=== PATIENT | female | born 1985 | race Two or more races ===

== ENCOUNTER 2022-08-06 13:42 | Emergency (ER) | payer OTHER, SELFPAY ==
--- NOTE | ~2022-08-06 | XR_ITS ---
EXAMINATION: XR CHEST CLINICAL INFORMATION: Chest pain left side COMPARISON: None available. TECHNIQUE: 2 views of the chest were obtained. FINDINGS: No significant abnormality is noted involving the heart, lungs, mediastinum, bony thorax or soft tissues. XR/XR chest 2V IMPRESSION: Unremarkable chest examination.
[2022-08-06 13:48] VITALS: BP 128/62; PULSE 90; RESP 18; TEMP 37.1; O2SAT 100; BMI 40.4
--- NOTE | 2022-08-06 13:48 | ED_ITS ---
HPI - General Adult General Chief complaint: Back Pain/Injury Stated complaint: Shoulder pain? Back pain Time Seen by Provider: 08/06/22 15:08 Related Data Previous Rx's Medication Instructions Recorded acetaminophen 500 mg tablet 1,000 mg PO QID PRN pain #30 tabs 08/06/22 ibuprofen 600 mg tablet 600 mg PO Q6H PRN pain #20 tabs 08/06/22 Allergies Allergy/AdvReac Type Severity Reaction Status Date / Time No Known Allergies Allergy Verified 08/06/22 13:49 Physical Exam ED Vital Signs: BMI result Body Mass Index 40.4 Course Course Course Narrative: RME: 36-year-old female presenting to the ED complaining of epigastric/substernal CP and left scapular pain radiating to left shoulder x3 days. Pain worse with putting arms overhead. denies SOB. Denies injury/trauma, fall, or heavy lifting Pain not reporducible on exam EKG, labs, CXR, shoulder XR ordered Full HPI, ROS and PE to be performed by primary ED provider. Medical Decision Making Lab Data 08/06/22 15:48 08/06/22 15:48 Labs: Lab Results 08/06/22 08/06/22 08/06/22 Range/Units 15:48 15:48 15:48 WBC 5.6 (4.8-10.8) X10*3/uL RBC 5.65 H (4.20-5.50) X10*6/uL Hgb 14.2 (12.0-16.0) g/dl Hct 44.7 (37.0-47.0) % MCV 79.1 L (80.0-98.0) fL MCH 25.1 L (27.0-33.0) pg MCHC 31.8 (31.0-35.0) g/dl RDW 14.6 (11.0-16.0) % Plt Count 246 (160-400) X10*3/uL MPV 11.5 (9.4-12.3) fL Immature Gran % (Auto) 0.2 (0.0-0.4) % Neut % (Auto) 52.0 (45-73) % Lymph % (Auto) 38.3 (20-40) % Jack % (Auto) 6.1 (2-11) % Eos % (Auto) 2.9 (0-4) % Baso % (Auto) 0.5 (0-2) % Lymph # (Auto) 2.1 (1.2-4.9) X10*3/uL Jack # (Auto) 0.3 (0.1-1.2) X10*3/uL Eos # (Auto) 0.2 (0.0-0.4) X10*3/uL Baso # (Auto) 0.0 (0.0-0.2) X10*3/uL Abs Immat Gran (auto) 0.01 (0.00-0.03) X10*3/uL Absolute Neuts (auto) 2.9 (2.0-8.3) x10*3/uL Absolute Nucleated RBC 0.000 (0.0-0.012) X10*3/uL Nucleated RBC % (auto) 0.0 (0.0-0.2) /100WBC Sodium 139 (135-145) mmol/L Potassium 4.0 (3.3-5.1) mmol/L Chloride 108 (96-108) mmol/L Carbon Dioxide 23 (22-29) mmol/L Anion Gap 12 (12-20) BUN 12 (9-16) mg/dL Creatinine 0.74 (0.5-1.4) mg/dL Estim Creat Clear Calc 116.4 Estimated GFR > 60 Random Glucose 100 (60-115) mg/dL Calcium 8.6 (8.4-10.2) mg/dL Total Bilirubin 0.4 (0.0-1.0) mg/dL Direct Bilirubin 0.1 (0.0-0.5) mg/dL AST 23 (5-31) U/L ALT 46 H (0-31) U/L Alkaline Phosphatase 113 (39-117) U/L Troponin I High Sens < 2.7 (<3.5-17.0) ng/L Total Protein 6.9 (6.5-8.0) g/dL Albumin 4.1 (3.5-5.0) g/dL Lipase 46 (8-78) U/L Urine Color Urine Appearance Urine pH (5.0-9.0) Ur Specific [place] (1.005-1.025) Urine Protein (Neg-Trace) mg/dL Urine Glucose (UA) (Negative) mg/dL Urine Ketones (Negative) mg/dL Urine Blood (Negative) Urine Nitrite (Negative) Ur Leukocyte Esterase (Negative) Urine RBC (0-2) /HPF Urine WBC (0-5) /HPF Ur Squamous Epith Cells (0-2) /HPF Urine Bacteria (None Seen) Hyaline Casts (0-2) /LPF Urine Test (NEGATIVE) 08/06/22 08/06/22 Range/Units 17:02 17:03 WBC (4.8-10.8) X10*3/uL RBC (4.20-5.50) X10*6/uL Hgb (12.0-16.0) g/dl Hct (37.0-47.0) % MCV (80.0-98.0) fL MCH (27.0-33.0) pg MCHC (31.0-35.0) g/dl RDW (11.0-16.0) % Plt Count (160-400) X10*3/uL MPV (9.4-12.3) fL Immature Gran % (Auto) (0.0-0.4) % Neut % (Auto) (45-73) % Lymph % (Auto) (20-40) % Jack % (Auto) (2-11) % Eos % (Auto) (0-4) % Baso % (Auto) (0-2) % Lymph # (Auto) (1.2-4.9) X10*3/uL Jack # (Auto) (0.1-1.2) X10*3/uL Eos # (Auto) (0.0-0.4) X10*3/uL Baso # (Auto) (0.0-0.2) X10*3/uL Abs Immat Gran (auto) (0.00-0.03) X10*3/uL Absolute Neuts (auto) (2.0-8.3) x10*3/uL Absolute Nucleated RBC (0.0-0.012) X10*3/uL Nucleated RBC % (auto) (0.0-0.2) /100WBC Sodium (135-145) mmol/L Potassium (3.3-5.1) mmol/L Chloride (96-108) mmol/L Carbon Dioxide (22-29) mmol/L Anion Gap (12-20) BUN (9-16) mg/dL Creatinine (0.5-1.4) mg/dL Estim Creat Clear Calc Estimated GFR Random Glucose (60-115) mg/dL Calcium (8.4-10.2) mg/dL Total Bilirubin (0.0-1.0) mg/dL Direct Bilirubin (0.0-0.5) mg/dL AST (5-31) U/L ALT (0-31) U/L Alkaline Phosphatase (39-117) U/L Troponin I High Sens (<3.5-17.0) ng/L Total Protein (6.5-8.0) g/dL Albumin (3.5-5.0) g/dL Lipase (8-78) U/L Urine Color Yellow Urine Appearance Clear Urine pH 7.0 (5.0-9.0) Ur Specific [place] 1.015 (1.005-1.025) Urine Protein Negative (Neg-Trace) mg/dL Urine Glucose (UA) Negative (Negative) mg/dL Urine Ketones Negative (Negative) mg/dL Urine Blood Small (1+) H (Negative) Urine Nitrite Negative (Negative) Ur Leukocyte Esterase Negative (Negative) Urine RBC 0-2 (0-2) /HPF Urine WBC 0-5 (0-5) /HPF Ur Squamous Epith Cells 3-5 (0-2) /HPF Urine Bacteria Trace (None Seen) Hyaline Casts 0-2 (0-2) /LPF Urine Test NEGATIVE (NEGATIVE) Discharge Plan Discharge Clinical Impression: Amenorrhea, Back pain Patient Disposition: Home, Self-Care Additional Instructions: for the problem of no menstruation for several months you should follow-up with manager medical device for further complete evaluation test was negative For the back pain which has been going on for some time follow with primary doctor for further evaluation You can try [facility] phone number We will provide you some names for primary doctor and manager medical device You can return to the ER any time for any concerns or worse condition Prescriptions: New acetaminophen 500 mg tablet 1,000 mg PO QID PRN (Reason: pain) Qty: 30 0RF ibuprofen 600 mg tablet 600 mg PO Q6H PRN (Reason: pain) Qty: 20 0RF Referrals: Miguelito Crandall MD [Physician] - ( amenorrhea) Interventions: ED Discharge Assessment Last Done: 08/06/22 17:41 Discharge Date/Time: 08/06/22 17:46
--- NOTE | 2022-08-06 13:49 | ECG_ITS ---
Test Reason : CHEST PAIN Blood Pressure : / mmHG Vent. Rate : 082 BPM Atrial Rate : 082 BPM P-R Int : 152 ms QRS Dur : 084 ms QT Int : 372 ms P-R-T Axes : 075 019 032 degrees QTc Int : 434 ms Normal sinus rhythm Normal ECG No previous ECGs available Referred By: Dang Jara Electronically Signed By:NICKI MONTIEL
[2022-08-06 15:56] LABS: Basophils Percent Auto 0.5 % (0-2); Eosinophils Absolute Auto 0.2 X10*3/uL (0.0-0.4); Eosinophils Percent Auto 2.9 % (0-4); Hematocrit 44.7 % (37.0-47.0); Hemoglobin 14.2 g/dl (12.0-16.0); Imm Gran Abs Auto 0.01 X10*3/uL (0.00-0.03); Imm Gran Pct Auto 0.2 % (0.0-0.4); Lymphocytes Absolute Auto 2.1 X10*3/uL (1.2-4.9); Lymphocytes Percent Auto 38.3 % (20-40); Mean Corpuscular HGB Conc 31.8 g/dl (31.0-35.0); Mean Corpuscular Hemoglobin 25.1 pg (27.0-33.0); Mean Corpuscular Volume 79.1 fL (80.0-98.0); Mean Platelet Volume 11.5 fL (9.4-12.3); Monocytes Absolute Auto 0.3 X10*3/uL (0.1-1.2); Monocytes Percent Auto 6.1 % (2-11); Neutrophils Absolute Auto 2.9 x10*3/uL (2.0-8.3); Platelet Count 246 X10*3/uL (160-400); Red Blood Count 5.65 X10*6/uL (4.20-5.50); Red Cell Distribution Width 14.6 % (11.0-16.0); White Blood Count 5.6 X10*3/uL (4.8-10.8)
[2022-08-06 16:02] LABS: MANUAL DIFF FLAG NO
[2022-08-06 16:16] LABS: Troponin-I High Sensitivity < 2.7 ng/L (<3.5-17.0)
[2022-08-06 16:18] LABS: Alanine Aminotransferase 46 U/L (0-31); Albumin Level 4.1 g/dL (3.5-5.0); Alkaline Phosphatase 113 U/L (39-117); Anion Gap 12 (12-20); Aspartate Amino Transferase 23 U/L (5-31); Bilirubin Direct 0.1 mg/dL (0.0-0.5); Bilirubin Total 0.4 mg/dL (0.0-1.0); Blood Urea Nitrogen 12 mg/dL (9-16); Calcium 8.6 mg/dL (8.4-10.2); Carbon Dioxide 23 mmol/L (22-29); Chloride 108 mmol/L (96-108); Creatinine Clr Calc Pharmacy 116.4; Estimated Glomerular Filt Rate > 60; Glucose Random 100 mg/dL (60-115); Sodium 139 mmol/L (135-145); Total Protein 6.9 g/dL (6.5-8.0)
[2022-08-06 16:19] LABS: Lipase 46 U/L (8-78)
[2022-08-06 17:09] LABS: UPreg QC Valid YES
[2022-08-06 17:12] LABS: Urine Pregnancy NEGATIVE (NEGATIVE)
[2022-08-06 17:12] LABS: Appearance Urine Clear; Color Urine Yellow; Glucose Urine UA Negative (Negative); Leukocyte Esterase Urine Negative (Negative); Nitrite Urine Negative (Negative); Specific Gravity - Urine 1.015 (1.005-1.025); UMIC TRIGGER UACC YES; Urine Blood Small (1+) (Negative); Urine Ketones Negative (Negative); Urine Protein Negative (Neg-Trace)
[2022-08-06 17:27] LABS: Bacteria Urine Trace (None Seen); Hyaline Casts Urine 0-2 /LPF (0-2); RBC Urine 0-2 /HPF (0-2); WBC Urine 0-5 /HPF (0-5)
== END 2022-08-06 17:46 | disposition home or self-care (01) ==
PROVIDERS: Physician Assistant; Physician Assistant Medical; Emergency Provider Emergency Medicine Emergency Medical Services
DX: N91.2 Amenorrhea, unspecified (principal); M54.9 Dorsalgia, unspecified; R07.2 Precordial pain; R10.13 Epigastric pain
CPT/HCPCS: 36415; 71046; 80048; 80076; 81001; 81025; 83690; 84484; 85025; 93005; 99283; 99284

== ENCOUNTER 2022-10-16 13:28 | Outpatient (AMB) | payer OTHER, SELFPAY ==
--- NOTE | 2022-10-16 13:30 | MHC.OFFVIS ---
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 Scribed for RADHA Salcedo by Aury Landrum medical sales consultant, on 10/16/2022 at 2:10 pm EST. Home Visitor Required: Yes Home Visitor Name: Arianna [id number] Information Interpreted: non-clinical & clinical Property Insurance Claims Examiner: Property Insurance Claims Examiner Present (Chanelle) Allergies No Known Allergies Allergy (Verified 10/16/22 13:44) Is last menstrual period known: Yes Last menstrual period: 10/14/22 HPI HPI Comments History of Present Illness Details She is here for an annual but defers due to her having her menses today. Reports she has been on BC for many years and just stopped BC in February. Received her BC in [facility] and was injections in her abdomen every 3 months, this is the first menses since stopping her shots. Currently sexually active, has not used condoms in a while but prefers to use condoms only for BC. She denies any contraindications to control such as: migraines with aura, history of DVT or pulmonary emboli, high blood pressure, liver disease, thrombolic disorders, Lupus, +MAGDA, or smoking. Reviewed use, side effects and warnings including ACHES. H/O of asthma and depression and would like to be put back on Rx for depression. PFSH Medical History Headache Irregular menses Surgical History Hx of section Social History Alcohol intake: never Patient Tobacco Use Status: Never used Tobacco Sexual orientation: Straight/Heterosexual Gender identity: Female Female Reproductive History Menstrual Date of last menstrual period: 10/14/22 Total pregnancies: 2 Full term: 2 Number of Living Children: 2 Physical Exam Vital Signs: Last Vital Signs BP 100/64 10/16/22 13:31 BMI result Body Mass Index 41.0 Const General: cooperative, healthy appearing, comfortable, no acute distress, well developed, alert and awake Results AMB Test Urine AMB Test Urine Negative Last Edit by CHARLEY Garcia on 10/16/22 14:24 Results Reviewed Results Reviewed: Laboratory Last Values [facility] Negative 10/16/22 14:23 Assessment & Plan Assessment & Plan (1) Missed menses: Code(s): N92.6 - Irregular menstruation, unspecified Plan: Discussed: Monitor menses. Contact office with information of past BC information-product name Advised to consult with PCP regarding Rx for depression. Reschedule AG. Use condoms always. All of her questions and concerns were addressed to the best of my ability and shared decision making. She is agreeable to plan of care. (2) Irregular menses: Code(s): N92.6 - Irregular menstruation, unspecified Orders: Orders AMB HCG Urine Test Today N92.6 - Irregular menstruation, unspecified Coding Level of Care Code New Pt Level 3 (55857) Diagnoses Missed menses N92.6 Irregular menses N92.6
[2022-10-16 13:31] VITALS: BP 100/64; BMI 41.0
== END 2022-10-16 14:19 | disposition home or self-care (01) ==
PROVIDERS: PCP Internal Medicine; Visit Provider Advanced Practice Midwife
DX: N92.6 Irregular menstruation, unspecified (principal)
CPT/HCPCS: 99203

== ENCOUNTER → 2022-10-16 13:28 | Outpatient (BNVA) | payer OTHER, SELFPAY | PROVIDERS: PCP Internal Medicine; Visit Provider Advanced Practice Midwife | DX: N92.6 Irregular menstruation, unspecified (principal) | CPT/HCPCS: 81025; 99202 ==

== ENCOUNTER 2022-11-14 10:10 | Outpatient (AMB) | payer OTHER, SELFPAY ==
[2022-11-14 10:12] VITALS: BP 110/68; BMI 41.1
--- NOTE | 2022-11-14 10:12 | A.OFFVIS_ITS ---
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 Scribed for RADHA Salcedo by Aury Landrum medical receptionist assistant, on 11/14/2022 at 10:36 am EST. Mineral Economist Required: Yes Mineral Economist Language: Damien Joe Mineral Economist Name: Eric [id number] Information Interpreted: non-clinical & clinical Rn Support Services: Rn Support Services Present (Mara Gutierres CHARLEY) Accompanied by: Self / Same As Patient Allergies No Known Allergies Allergy (Verified 11/14/22 10:21) Is last menstrual period known: Yes Last menstrual period: 10/28/22 HPI HPI Comments History of Present Illness Details She is a premenopausal woman presenting for annual exam. She admits to eating healthy and tries to stay active with exercise. Report low pelvic pain with pain during urination that started 2 weeks ago. Reports menses October 04 and in October it lasted 1 day. Prior menses skipped a few months. Poor historian-Mineral Economist reported her history varied from the nurse intake to my intake. Currently sexually active. She received her last Depo injection in [facility] on October 25 2021, per card from clinic she has on hand today. BC offered; she declines because BC gives her headaches. She prefers to use condoms alone. Denies vaginal itching and irritation. STD screening offered; she accepts. Denies family hx of breast, colon and ovarian cancer. Last pap smear; unknown. [facility] Medical History Headache Irregular menses Obesity, Class III, BMI 40-49.9 (morbid obesity) Painful urination Pelvic pain Surgical History Hx of section Social History Household Members: Spouse and Children Housing Other:: [facility] Alcohol intake: never Patient Tobacco Use Status: Never used Tobacco Current occupational status: unemployed Sexual orientation: Straight/Heterosexual Gender identity: Female Female Reproductive History Menstrual Date of last menstrual period: 08/14/23 control method: condoms Total pregnancies: 2 Full term: 2 Number of Living Children: 2 Physical Exam Vital Signs: Last Vital Signs BP 110/68 11/14/22 10:12 BMI result Body Mass Index 41.1 Const General: cooperative, healthy appearing, no acute distress, well developed and alert Orientation/consciousness: patient oriented x3 HEENT Head: Yes normal to inspection Eyes General: appearance normal, both eyes and all related structures Neck Neck: Yes normal visual inspection Thyroid: Thyroid normal Chest Chest palpation & inspection: normal inspection of the chest Breast/axilla inspection: normal inspection of the breasts (no puckering, d impling, peau de orange, retraction, discharge, masses) Breast/axilla palpation: normal palpation of the breasts Resp Effort & Inspection: normal respiratory effort GI Inspection: Yes normal to inspection and Yes obesity Palpation (GI): Soft to palpation (to palpation) Rectal Exam - Female: deferred Other: low transverse c/s scarring General: Yes bladder normal to inspection External Female Exam: normal external appearance and normal appearance of the urethra Speculum Exam - Vagina: normal appearance of the vagina, normal palpation and normal vaginal discharge Speculum Exam - Cervix: normal appearance of the cervix and normal palpation Bimanual exam- vagina & uterus: normal palpation and normal palpation Bimanual Exam- Adnexa, other: normal adnexae and no masses Skin General skin exam: no rashes or lesions noted Neuro General: patient oriented x3 Cognition (Neuro): normal cognition Extrem General: Yes normal to inspection Psych Attitude: cooperative Thought process: Normal thought process present Assessment & Plan Assessment & Plan (1) Encounter for well woman exam: Code(s): Z01.419 - Encounter for gynecological examination (general) (routine) without abnormal findings Plan: Current recommendations for pap smears per ASCCP guidelines. Breast awareness and periodic self breast exams. Maintaining a healthy lifestyle including a well balanced diet and routine exercise. Monitor periods, report any unscheduled bleeding, bleeding episodes less than 21 days apart or heavy prolonged menstrual bleeding. All of her questions and concerns were addressed to the best of my ability. RTO in one year for AG. (2) Potential exposure to STD: Code(s): Z20.2 - Contact with and (suspected) exposure to infections with a predominantly sexual mode of transmission Plan: BV testing and GC/CT panel done today. Await results and treat accordingly. (3) Painful urination: Code(s): R30.9 - Painful micturition, unspecified Plan: UA obtained today. (4) Pelvic pain: Code(s): R10.2 - Pelvic and perineal pain Plan: After her exam she reported pelvic pain and dysuria. Additionally added: Pelvic US ordered. Follow up in person for results. Orders: Orders Bacterial Vaginosis Panel Today R10.2 - Pelvic and perineal pain, Z01.419 - Encounter for gynecological examination (general) (routine) without abnormal findings CT NG by PCR Today R10.2 - Pelvic and perineal pain, Z01.419 - Encounter for gynecological examination (general) (routine) without abnormal findings US pelvic and transvaginal Today R10.2 - Pelvic and perineal pain Hepatitis B Core Antibody Today Z20.2 - Contact with and (suspected) exposure to infections with a predominantly sexual mode of transmission Hepatitis C Antibody Today Z20.2 - Contact with and (suspected) exposure to infections with a predominantly sexual mode of transmission HIV Ab/Ag Today Z20.2 - Contact with and (suspected) exposure to infections with a predominantly sexual mode of transmission Syphilis Screen Today Z20.2 - Contact with and (suspected) exposure to infections with a predominantly sexual mode of transmission Pap Smear Today R10.2 - Pelvic and perineal pain, Z01.419 - Encounter for gynecological examination (general) (routine) without abnormal findings Coding Level of Care Code Est Pt Prev Care 18-39y(21225) Diagnoses Encounter for well woman exam Z01.419 Potential exposure to STD Z20.2 Painful urination R30.9 Pelvic pain R10.2
== END 2022-11-14 11:04 | disposition home or self-care (01) ==
LOC: HO.HWS 10:10
PROVIDERS: PCP Internal Medicine; Visit Provider Advanced Practice Midwife
DX: Z01.419 Encounter for gynecological examination (general) (routine) without abnormal findings (principal); Z20.2 Contact with and (suspected) exposure to infections with a predominantly sexual mode of transmission; R30.9 Painful micturition, unspecified; R10.2 Pelvic and perineal pain
CPT/HCPCS: 99395

== ENCOUNTER 2022-11-14 10:10 | Outpatient (REF) | payer OTHER, SELFPAY ==
[2022-11-14 18:59] LABS: CT PCR NOT DETECTED (Not Detect.); NG PCR NOT DETECTED (Not Detect.)
[2022-11-15 12:07] LABS: BV Int Neg Control Negative (Negative); BV Int Pos Control Positive (Positive)
[2022-11-19 18:49] LABS: HPV mRNA E6/E7 rflx Not Detected (Not Detected)
== END 2022-11-14 10:11 | disposition home or self-care (01) ==
LOC: HO.LNP 10:10
PROVIDERS: PCP Internal Medicine; Visit Provider Advanced Practice Midwife
DX: Z01.419 Encounter for gynecological examination (general) (routine) without abnormal findings (principal); Z11.51 Encounter for screening for human papillomavirus (HPV); R10.2 Pelvic and perineal pain; R30.9 Painful micturition, unspecified; Z20.2 Contact with and (suspected) exposure to infections with a predominantly sexual mode of transmission
CPT/HCPCS: 0353U; 87480; 87510; 87624; 87660; 88142

== ENCOUNTER 2022-11-14 11:14 | Outpatient (REF) | payer OTHER, SELFPAY ==
[2022-11-15 08:03] LABS: HBc Num1 0.19 S/CO (0.00-0.79); HIV AB/AG Nonreactive (Nonreactive); HIV Num 1 0.05 S/CO (0.00-0.99); Hepatitis B Core Antibody Nonreactive (Nonreactive); ~HepC Num1 0.08 S/CO (0.00-0.79); ~Hepatitis C Antibody Nonreactive (Nonreactive)
[2022-11-15 08:31] LABS: Syphilis Screen Nonreactive (Nonreactive)
== END 2022-11-14 11:15 | disposition home or self-care (01) ==
LOC: HO.LAB 11:14
PROVIDERS: Visit Provider Advanced Practice Midwife
DX: Z11.4 Encounter for screening for human immunodeficiency virus [HIV] (principal); Z20.2 Contact with and (suspected) exposure to infections with a predominantly sexual mode of transmission
CPT/HCPCS: 0353U; 86704; 86780; 86803; 87389

== ENCOUNTER 2023-02-04 11:06 | Outpatient (REF) | payer OTHER, SELFPAY ==
--- NOTE | ~2023-02-04 | US_ITS ---
EXAMINATION: US PELVIS CLINICAL INFORMATION: Pelvic and perineal pain; the last menstrual period was on 01/16/2023. COMPARISON: None available. TECHNIQUE: Ultrasound of the pelvis is performed using both transabdominal and transvaginal transducers along with Doppler. Transvaginal imaging is performed due to inadequate visualization transabdominally. FINDINGS: Uterus: The uterus is anteverted and anteflexed. The uterus measures 8.8 x 4.1 x 4.0 cm. There is trace endocervical free fluid. The double wall endometrial thickness is 0.8 mm. The uterus is smooth in contour and has normal myometrial echogenicity. No visible fibroid. Adnexa: Both ovaries are visualized. There is normal color flow to the adnexa. There is no ovarian torsion. There is no pelvic ascites or fluid collection. Right ovary measures 4.2 x 1.8 x 3.5 cm, volume 12.3 mL. A 1.2 cm dominant physiologic simple follicle is seen, which requires no imaging follow-up. Left ovary measures 3.1 x 1.8 x 2.4 cm, volume 7.0 mL. A 2.0 cm dominant physiologic simple follicle is seen, which requires no imaging follow-up. US/US pelvic and transvaginal IMPRESSION: There is trace free fluid is seen within the endocervical canal. The examination is otherwise unremarkable.
== END 2023-02-04 11:07 | disposition home or self-care (01) ==
LOC: HO.US 11:06
PROVIDERS: PCP Internal Medicine; Visit Provider Advanced Practice Midwife
DX: R10.2 Pelvic and perineal pain (principal)
CPT/HCPCS: 76830; 76856

== ENCOUNTER 2023-02-11 08:49 | Outpatient (AMB) | payer OTHER, SELFPAY ==
--- NOTE | 2023-02-11 08:53 | MHC.OFFVIS ---
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 She has irregular menses, skips a month or so after stopping Depo-Provera in 2021. She does not want control due to prior headaches plans to use condoms. [facility] Medical History Obesity, Class III, BMI 40-49.9 (morbid obesity) Painful urination Pelvic pain Irregular menses Headache Surgical History Hx of section Household Members: Spouse and Children Housing Other:: detention Alcohol intake: never Patient Tobacco Use Status: Never used Tobacco Current occupational status: unemployed Sexual orientation: Straight/Heterosexual Gender identity: Female Female Reproductive History Menstrual control method: condoms Review of Systems ENT Reports no additional complaints Neuro Reports no additional complaints Psych Reports no additional complaints Endo Reports no additional complaints Physical Exam Vital Signs: Last Vital Signs BP 90/60 02/11/23 08:54 BMI result Body Mass Index 39.9 Const Other: [place] General appearance: cooperative, healthy appearing, in no acute distress, well developed and alert. Orientation/consciousness: patient orientated x 3. Results Reviewed Results Reviewed: [address] [address] Ultrasound Report Signed Patient: Nimisha Rose MR#: [id number] : 1985 Acct:[id number] Age/Sex: 37 / F ADM Date: 02/04/23 Loc: HO.US Attending Dr: Ngoc Pitts CNM Ordering Physician: Ngoc Pitts CNM Date of Service: 02/04/23 Procedure(s): US pelvic and transvaginal Accession Number(s): [id number] cc: Jonny Childers MD; Ngoc Pitts CNM~ EXAMINATION: US PELVIS CLINICAL INFORMATION: Pelvic and perineal pain; the last menstrual period was on 01/16/2023. COMPARISON: None available. TECHNIQUE: Ultrasound of the pelvis is performed using both transabdominal and transvaginal transducers along with Doppler. Transvaginal imaging is performed due to inadequate visualization transabdominally. FINDINGS: Uterus: The uterus is anteverted and anteflexed. The uterus measures 8.8 x 4.1 x 4.0 cm. There is trace endocervical free fluid. The double wall endometrial thickness is 0.8 mm. The uterus is smooth in contour and has normal myometrial echogenicity. No visible fibroid. Adnexa: Both ovaries are visualized. There is normal color flow to the adnexa. There is no ovarian torsion. There is no pelvic ascites or fluid collection. Right ovary measures 4.2 x 1.8 x 3.5 cm, volume 12.3 mL. A 1.2 cm dominant physiologic simple follicle is seen, which requires no imaging follow-up. Left ovary measures 3.1 x 1.8 x 2.4 cm, volume 7.0 mL. A 2.0 cm dominant physiologic simple follicle is seen, which requires no imaging follow-up. US/US pelvic and transvaginal IMPRESSION: There is trace free fluid is seen within the endocervical canal. The examination is otherwise unremarkable. Assessment & Plan Assessment & Plan (1) Encounter to discuss test results: Code(s): Z71.2 - Person consulting for explanation of examination or test findings Plan: Discussed: Ultrasound results reviewed normal. Patient is not interested in starting control advised to monitor her menstrual cycles and report any menses skipping past 3 months. To calls the office for a workup. Continue use of condoms. All of her questions and concerns were addressed to the best of my ability. She is agreeable to the plan of care. Next visit is for her annual in November of 2023. Coding Level of Care Code Est Pt Level 3 (21036) Diagnoses Encounter to discuss test results Z71.2
[2023-02-11 08:54] VITALS: BP 90/60; BMI 39.9
== END 2023-02-11 12:35 | disposition home or self-care (01) ==
LOC: HO.HWS 08:49
PROVIDERS: PCP Internal Medicine; Visit Provider Advanced Practice Midwife
DX: Z71.2 Person consulting for explanation of examination or test findings (principal)
CPT/HCPCS: 99213

== ENCOUNTER → 2023-02-11 08:49 | Outpatient (BNVA) | payer OTHER, SELFPAY | PROVIDERS: PCP Internal Medicine; Visit Provider Advanced Practice Midwife | DX: Z71.2 Person consulting for explanation of examination or test findings (principal) | CPT/HCPCS: 99212 ==

== ENCOUNTER 2023-03-07 16:18 | Outpatient (AMB) | payer OTHER, SELFPAY ==
[2023-03-07 16:18] VITALS: BP 96/70; PULSE 67; O2SAT 99; BMI 39.4
--- NOTE | 2023-03-07 16:18 | MHC.PC.OV ---
Vital Signs 03/07/23 16:18 Height 5 ft 2 in Weight 215 lb 4 oz BMI 39.4 BP 96/70 Blood Pressure Location Lt brachial Position Sitting Pulse 67 Pulse Source Pulse Oximeter Pulse Oximetry (%) 99 Oxygen Delivery Method Room Air Intake Visit Reasons: Director Hris Request PE Restaurant Supervisor Required: Yes Restaurant Supervisor Name: Felisha ([id number]) Accompanied by: Self / Same As Patient Allergies No Known Allergies Allergy (Verified 03/07/23 16:41) Medication List - Last Reconciled 03/07/23 by Jonny Childers MD acetaminophen 1,000 mg (2 x 500 mg) PO QID PRN ibuprofen 600 mg PO Q6H PRN Tobacco use date assessed: 03/07/23 Dental Screening Dental Screen Date: 03/07/23 Did you have a dental visit in the last 12 months?: No Did you have a dental problem in the last 6 months where you did not have access to dental care?: No Was dental information given to patient?: Patient has dentist HPI Director Hris Request PE HPI Details Patient comes in today for her annual physical examination and to establish care - she is a new patient to the practice Patient relates that she has had on and off headaches for a while now but they seem to have increased in frequency over the past 2 years or so States that she currently has a persistent headache since yesterday Has tried taking some OTC Tylenol and/or Ibuprofen with no relief Reports (+) blurred vision and/or dizziness at times that are associated with her headaches; states that there are also times wherein she is unable to talk/speak when her headaches get a lot worse Based on her description, there does not seem to be any area of predilection for her headaches She denies any chest pains, no SOB No nausea/vomiting, no abdominal pain No change in bowel habits noted She denies any acute urinary symptoms Relates also that she has (+) Hx of mental health problems - has anxiety and depression and states that she is currently seeing / talking to a therapist regularly and just had her last meeting around noon earlier today [facility] and pap smear and OB issues [facility] Medical History (Updated 03/07/23 @ 17:31 by Jonny Childers MD) Obesity (BMI 30-39.9) Depression Anxiety Obesity, Class III, BMI 40-49.9 (morbid obesity) Painful urination Pelvic pain Irregular menses Headache Surgical History Hx of section Social History Household Members: Spouse and Children Housing: Apartment Housing Other:: fdc Alcohol intake: never Patient Tobacco Use Status: Never used Tobacco e-Cigarette/Vaping Use: Never Used service: No Current occupational status: unemployed Sexual orientation: Straight/Heterosexual Gender identity: Female Cognitive needs: No Hearing needs: No Vision needs: No Questionnaire PHQ-9 Over the last 2 weeks, how often have you been bothered by any of the following problems? 1. Little interest or pleasure in doing things: more than half the days 2. Feeling down, depressed, or hopeless: several days 3. Trouble falling or staying asleep, or sleeping too much: not at all 4. Feeling tired or having little energy: more than half the days 5. Poor appetite or overeating: not at all 6. Feeling bad about yourself - or that you are a failure or have let yourself or your family down: not at all 7. Trouble concentrating on things, such as reading the newspaper or watching television: several days 8. Moving or speaking so slowly that other people could have noticed. Or the opposite - being so fidgety or restless that you have been moving around a lot more than usual: not at all 9. Thoughts that you would be better off or of hurting yourself in some way: not at all Total score: 6 Depression Screening Interpretation: Positive (is currently seeing therapist) Depression Screening Follow-up: Existing condition and In treatment Depression Screening Done: Yes 32827 - PHQ-9 Billing: Yes Source: Developed by Drs. Damien Ortega, Emmanuelle Michaud, Trent Chandra and colleagues, with an educational tanika from [employer]. Thrive Questionnaire Date Thrive assessed: 03/07/23 I am a: Patient What is your living situation today?: I have a steady place to live Within the past 12 months, did the food you bought not last and you didn't have the money to get more?: Never true Within the past 12 months, did you worry whether your food would run out before you got money to buy more?: Never true Do you have trouble paying for medicines?: No Do you have trouble getting transportation to medical appointments?: No Do you have trouble paying your heating and electricity bill?: No Do you have trouble taking care of your child, family member or friend?: No Do you have trouble with day-to-day activities such as bathing, preparing meals, shopping, managing finances, etc.?: No Are you currently unemployed and looking for a job?: No Are you interested in more education?: No Please select the resources that you would like help with: None Currently or been in a relationship where the following occur: no concerns reported AUDIT C Alcohol Use Questionnaire (AUDIT-C) 1. How often do you have a drink containing alcohol?: Never 3. How often do you have six or more drinks on one occasion?: Never Total Score: 0 Score Reviewed/Action Taken: Yes JESSA-7 AMB Questionnaire JESSA-7 Date JESSA - 7 assessed: 03/07/23 Feeling nervous, anxious, or on edge: 0 = Not at all Not being able to stop or control worryin = Not at all Worrying too much about different things: 0 = Not at all Trouble relaxin = Not at all Being so restless that it is hard to sit still: 0 = Not at all Becoming easily annoyed or irritable: 0 = Not at all Feeling afraid as if something awful might happen: 0 = Not at all Total JESAS-7 score (0-4 normal; 5-9 mild; 10-14 moderate; 15-21 severe): 0 Source: Developed by Drs. Damien Ortega, Emmanuelle Michaud, Trent Chandra and colleagues, with an educational tanika from [employer]. Review of Systems Const Denies chills, Reports fatigue, Denies fever(s), Reports headache(s) (increasing lately - see HPI) and Denies malaise Eyes Reports blurry vision (at times when headaches increase), Denies change in vision, Denies irritation and Denies itchy eyes ENT Denies dysphagia, Reports dizziness (at times, with increased headaches), Denies otalgia, Reports headache(s) (increasing lately - see HPI), Denies nasal congestion, Denies neck pain, Denies odynophagia, Denies sinus pain and Denies sore throat Card Denies chest pain, Denies rapid heart rate, Denies irregular heart rhythm, Denies palpitations and Denies dyspnea Resp Denies chest congestion, Denies cough, Denies dyspnea and Denies wheezing GI Denies abdominal pain, Denies bloating, Denies constipation, Denies dysphagia, Denies heartburn, Denies diarrhea, Denies nausea, Denies odynophagia and Denies vomiting Denies hematuria, Denies urinary frequency, Denies dysuria, Denies urinary incontinence and Denies urinary urgency Musc Denies back pain, Denies arthralgias, Denies joint swelling, Denies muscle weakness and Denies neck pain Skin/Breast Denies breast pain, Denies breast mass, Denies change in pigmentation, Denies lesions, Denies rash and Denies unusual bruising Neuro Reports dizziness (at times, with increased headaches), Reports headache(s) (increasing lately - see HPI) and Denies paresthesias Psych Reports anxiety and Reports depression Endo Reports fatigue and Denies palpitations Jose/Lymph Denies easy bruising Aller/Immun Denies itchy eyes and Denies wheezing Physical exam (Primary Care) Vital Signs: Last Vital Signs Pulse 67 03/07/23 16:18 BP 96/70 03/07/23 16:18 Pulse Ox 99 03/07/23 16:18 Oxygen Delivery Method Room Air 03/07/23 16:18 BMI result Body Mass Index 39.4 Tobacco/Smoking Status: Tobacco use Status Tobacco use date assessed 03/07/23 03/07/23 16:25 Patient Tobacco Use Status Never used Tobacco 03/07/23 16:25 e-Cigarette/Vaping Use Never Used 03/07/23 16:25 PHQ-9: PHQ-9 Score PHQ-9: Total score 0 03/07/23 16:45 Depression Screening Interpretation: Positive (is currently seeing therapist) Depression Screening Follow-up: Existing condition and In treatment Thrive Assessment: Date of Thrive Assessment Date Thrive assessed 03/07/23 03/07/23 16:25 Currently or been in a relationship where the following occur: no concerns reported Const General: no acute distress, alert and awake Orientation/consciousness: patient oriented x3 HENMT Head: Yes normocephalic and Yes atraumatic Ears: external ears normal, TM's normal bilaterally and EAC's normal General nose exam: No nasal discharge present Face and sinus: Yes normal facial exam and Yes sinuses nontender Teeth and gingiva: dentition normal Throat: Yes posterior oropharynx normal and Yes tonsils normal (no TP congestion) Eyes Eyelids: Yes eyelids normal Conjunctivae: conjunctivae normal Pupils: Equal, round and reactive pupils present EOM: EOMs intact bilaterally Neck Neck: Yes no lymphadenopathy and Yes supple Thyroid: Thyroid normal Resp Auscultation: clear to auscultation bilaterally, no rales and no wheezes Cardio Rate: regular rate Rhythm: regular rhythm Heart sounds: no murmurs GI Palpation (GI): Soft to palpation, nontender and No hepatosplenomegaly present Auscultation: normal bowel sounds General: Yes no CVA tenderness Back/Spine/Pelvis Back: no CVA tenderness Thoracic/Lumbar Spine: thoracic and lumbar spine normal to inspection Skin Lesions: no lesions Rashes: no rashes Neuro General: patient oriented x3, moves all extremities, no focal motor deficits and CN's II-XI intact bilaterally Cranial nerves: Yes Equal, round and reactive pupils present Cognition (Neuro): normal cognition Gait exam (Neuro): Normal gait present Extrem General: Yes no clubbing, cyanosis or edema Assessment and Plan Assessment & Plan (1) Annual physical exam: Code(s): Z00.00 - Encounter for general adult medical examination without abnormal findings Plan: Check labs Patient appears to be up-to-date with her cervical cancer screening (2) Headache: Code(s): R51.9 - Headache, unspecified Qualifiers: Headache chronicity pattern: chronic headache Headache type: unspecified Intractability: not intractable Qualified Code(s): R51.9 - Headache, unspecified; G89.29 - Other chronic pain Plan: Unclear etiology - possible tension headaches Have difficulty obtaining more accurate info due to language barrier, even with the aid of spanish interpreter/translator services Will check some labs, including CBC and sed rate, and send patient for a head CT JOSE GUADALUPE for further evaluation Will start her for now on some Fioricet 1 tablet TID PRN for her headaches (3) Anxiety: Code(s): F41.9 - Anxiety disorder, unspecified Plan: Follow up with therapist as scheduled (4) Depression: Code(s): F32.A - Depression, unspecified Qualifiers: Depression Type: major depressive disorder Major depression recurrence: recurrent Active/Remission status: currently active Major depression episode severity: unspecified Qualified Code(s): F33.9 - Major depressive disorder, recurrent, unspecified Plan: Follow up with therapist/psychiatrist as scheduled (5) Obesity (BMI 30-39.9): Code(s): E66.9 - Obesity, unspecified Plan: Discussed diet/exercise as tolerated/lose weight Plan Follow up in 3 months Orders: Orders Complete Blood Count Auto Diff Today R51.9 - Headache, unspecified, Z00.00 - Encounter for general adult medical examination without abnormal findings Comprehensive [place]. Panel Fast Today R51.9 - Headache, unspecified, Z00.00 - Encounter for general adult medical examination without abnormal findings Erythrocyte Sedimentation Rate Today R51.9 - Headache, unspecified, Z00.00 - Encounter for general adult medical examination without abnormal findings CT head/brain wo IV con Today R51.9 - Headache, unspecified Lipid Panel Today E78.00 - Pure hypercholesterolemia, unspecified, R51.9 - Headache, unspecified, Z00.00 - Encounter for general adult medical examination without abnormal findings TSH reflex Free T4 Today R51.9 - Headache, unspecified, Z00.00 - Encounter for general adult medical examination without abnormal findings UA CC w/rflx Micro + Cult Today R30.0 - Dysuria, R51.9 - Headache, unspecified, Z00.00 - Encounter for general adult medical examination without abnormal findings Vitamin D 25-OH Total Today E55.9 - Vitamin D deficiency, unspecified, R51.9 - Headache, unspecified, Z00.00 - Encounter for general adult medical examination without abnormal findings Medications: New wmsuxqnegd-sqphecannpzsg-rkkn 50-300-40 mg (Fioricet) 1 cap PO Q8H PRN 30 caps 0RF headache Coding Level of Care Code New Pt Prev Care 18-39yr([id number] Diagnoses Annual physical exam Z00.00 Chronic nonintractable headache, unspecified headache type R51.9; G89.29 Headache chronicity pattern: chronic headache Headache type: unspecified Intractability: not intractable Anxiety F41.9 Episode of recurrent major depressive disorder, unspecified depression episode severity F33.9 Depression Type: major depressive disorder Major depression recurrence: recurrent Active/Remission status: currently active Major depression episode severity: unspecified Obesity (BMI 30-39.9) E66.9
== END 2023-03-07 17:03 | disposition home or self-care (01) ==
PROVIDERS: PCP Internal Medicine; Visit Provider Internal Medicine
DX: Z00.00 Encounter for general adult medical examination without abnormal findings (principal); F33.9 Major depressive disorder, recurrent, unspecified; R51.9 Headache, unspecified; G89.29 Other chronic pain; F41.9 Anxiety disorder, unspecified; E66.9 Obesity, unspecified
CPT/HCPCS: 99385

== ENCOUNTER 2023-03-08 08:27 | Outpatient (REF) | payer OTHER, SELFPAY ==
[2023-03-08 08:44] LABS: MANUAL DIFF FLAG NO
[2023-03-08 09:16] LABS: Basophils Percent Auto 0.7 % (0-2); Eosinophils Absolute Auto 0.1 X10*3/uL (0.0-0.4); Eosinophils Percent Auto 1.8 % (0-4); Hematocrit 42.2 % (37.0-47.0); Hemoglobin 13.4 g/dl (12.0-16.0); Imm Gran Abs Auto 0.01 X10*3/uL (0.00-0.03); Imm Gran Pct Auto 0.2 % (0.0-0.4); Lymphocytes Absolute Auto 2.1 X10*3/uL (1.2-4.9); Mean Corpuscular HGB Conc 31.8 g/dl (31.0-35.0); Mean Corpuscular Hemoglobin 24.7 pg (27.0-33.0); Mean Corpuscular Volume 77.9 fL (80.0-98.0); Mean Platelet Volume 11.8 fL (9.4-12.3); Monocytes Absolute Auto 0.3 X10*3/uL (0.1-1.2); Monocytes Percent Auto 7.3 % (2-11); Neutrophils Absolute Auto 1.9 x10*3/uL (2.0-8.3); Platelet Count 257 X10*3/uL (160-400); Red Blood Count 5.42 X10*6/uL (4.20-5.50); Red Cell Distribution Width 15.5 % (11.0-16.0); White Blood Count 4.5 X10*3/uL (4.8-10.8)
[2023-03-08 09:27] LABS: Appearance Urine Clear; Color Urine Yellow; Glucose Urine UA Negative (Negative); Leukocyte Esterase Urine Negative (Negative); Nitrite Urine Negative (Negative); UMIC TRIGGER UACC YES; Urine Blood Small (1+) (Negative); Urine Ketones Negative (Negative); Urine Protein Negative (Neg-Trace)
[2023-03-08 09:43] LABS: Bacteria Urine None Seen (None Seen); Hyaline Casts Urine 0-2 /LPF (0-2); RBC Urine 0-2 /HPF (0-2); Squamous Epithelial Cell Urine 0-2 /HPF (0-2); WBC Urine 0-5 /HPF (0-5)
[2023-03-08 09:46] LABS: Alanine Aminotransferase 12 U/L (0-31); Albumin Level 3.9 g/dL (3.5-5.0); Alkaline Phosphatase 68 U/L (39-117); Anion Gap 12 (12-20); Aspartate Amino Transferase 13 U/L (5-31); Bilirubin Total 0.5 mg/dL (0.0-1.0); Blood Urea Nitrogen 11 mg/dL (9-16); Calcium 9.2 mg/dL (8.4-10.2); Carbon Dioxide 26 mmol/L (22-29); Chloride 105 mmol/L (96-108); Cholesterol 180 mg/dL (<200); Estimated Glomerular Filt Rate > 60; Glucose Fasting 91 mg/dL (60-99); HDL Cholesterol 54 mg/dL (>40); LDL Cholesterol Calculated 113 mg/dL (<100); Potassium 3.8 mmol/L (3.3-5.1); Sodium 139 mmol/L (135-145); Total Protein 7.3 g/dL (6.5-8.0); Triglycerides 66 mg/dL (<150)
[2023-03-08 10:04] LABS: Erythrocyte Sedimentation Rate 7 MM/HR (0-20)
[2023-03-08 10:07] LABS: TSH reflex Free T4 1.65 uIU/mL (0.32-4.0); Vitamin D 25-OH Total 23.2 ng/mL (>30)
== END 2023-03-08 08:28 | disposition home or self-care (01) ==
LOC: HO.LAB 08:27
PROVIDERS: PCP Internal Medicine; Visit Provider Internal Medicine
DX: Z00.00 Encounter for general adult medical examination without abnormal findings (principal); R51.9 Headache, unspecified; E78.00 Pure hypercholesterolemia, unspecified; E55.9 Vitamin D deficiency, unspecified; R30.0 Dysuria
CPT/HCPCS: 36415; 80053; 80061; 81001; 82306; 84443; 85025; 85652

== ENCOUNTER 2023-07-15 12:30 | Outpatient (REF) | payer OTHER, SELFPAY ==
[2023-07-15 17:37] LABS: CT PCR NOT DETECTED (Not Detect.); NG PCR NOT DETECTED (Not Detect.)
[2023-07-16 15:03] LABS: BV Int Neg Control Negative (Negative); BV Int Pos Control Positive (Positive)
== END 2023-07-15 12:31 | disposition home or self-care (01) ==
LOC: HO.LNP 12:30
PROVIDERS: PCP Nurse Practitioner Family; Visit Provider Advanced Practice Midwife
DX: R10.2 Pelvic and perineal pain (principal)
CPT/HCPCS: 0353U; 81003; 81025; 87480; 87510; 87660; 99212

== ENCOUNTER 2023-07-15 12:30 | Outpatient (AMB) | payer OTHER, SELFPAY ==
[2023-07-15 13:49] VITALS: BP 100/62; BMI 39.3
--- NOTE | 2023-07-15 13:49 | A.OFFVIS_ITS ---
Vital Signs 07/15/23 13:49 Height 5 ft 2 in Weight 215 lb BMI 39.3 BP 100/62 Intake Visit Reasons: Pelvic pain Labor Relations Director Required: Yes Labor Relations Director Language: Damien Joe Labor Relations Director Name: Leisa [id number] Information Interpreted: non-clinical & clinical Network Services Project Manager: Network Services Project Manager Present (Chanelle) Allergies No Known Allergies Allergy (Verified 07/15/23 13:49) Is last menstrual period known: Yes Last menstrual period: 05/11/23 HPI Comments Details: Patient is here today with concerns of lower pelvic pain (cramping) for a month. She denies any vaginal odor, irritation. Regular menses. No new intimate partner. No dysruria, constipation or diarrhea. [facility] Medical History Obesity (BMI 30-39.9) Depression Anxiety Obesity, Class III, BMI 40-49.9 (morbid obesity) Painful urination Pelvic pain Irregular menses Headache Surgical History Hx of section Social History Household Members: Spouse and Children Housing: Apartment Housing Other:: usp Alcohol intake: never Patient Tobacco Use Status: Never used Tobacco e-Cigarette/Vaping Use: Never Used service: No Current occupational status: unemployed Sexual orientation: Straight/Heterosexual Gender identity: Female Cognitive needs: No Hearing needs: No Vision needs: No Female Reproductive History Menstrual Date of last menstrual period: 05/11/23 Review of Systems Const All systems reviewed & are unremarkable except as noted in HPI and below Physical Exam Vital Signs: Last Vital Signs BP 100/62 07/15/23 13:49 BMI result Body Mass Index 39.3 Const General: cooperative, healthy appearing and no acute distress Orientation/consciousness: patient oriented x3 GI Inspection: Yes normal to inspection Palpation (GI): Soft to palpation and Other GI palpation findings present (Nontender) Rectal Exam - Female: visual inspection normal General: Yes bladder normal to palpation External Female Exam: normal appearance of the urethra Speculum Exam - Vagina: normal appearance of the vagina, normal palpation and normal vaginal discharge Speculum Exam - Cervix: normal appearance of the cervix and normal palpation Bimanual exam- vagina & uterus: normal bimanual exam, normal palpation, uterine size normal, bladder normal to palpation, normal palpation, uterine shape normal and non-tender Bimanual Exam- Adnexa, other: normal adnexae Neuro General: patient oriented x3 Results AMB Test Urine AMB Test Urine Negative Last Edit by Juana Hill [facility] on 07/15/23 14:04 AMB Urinalysis, Automated UA Leukoctes 0 Ritesh/uL Last Edit by Juana Hill [facility] on 07/15/23 14:04 UA Nitrite Negative Last Edit by Juana Hill [facility] on 07/15/23 14:04 UA Urobilinogen 0 mg/dL Last Edit by Juana Hill [facility] on 07/15/23 14:0 4 UA Protein 0 mg/dL Last Edit by Juana Hill [facility] on 07/15/23 14:04 UA pH 6.0 Last Edit by Juana Hill [facility] on 07/15/23 14:04 UA Blood 0 Teodoro/uL Last Edit by Juana Hill [facility] on 07/15/23 14:04 UA Specific [place] 1.015 Last Edit by Juana Hill [facility] on 07/15/23 14:04 UA Ketone Negative Last Edit by Juana Hill [facility] on 07/15/23 14:04 UA Bilirubin 0 mg/dL Last Edit by Juana Hill [facility] on 07/15/23 14:04 UA Glucose 0 mg/dL Last Edit by Juana Hill [facility] on 07/15/23 14:04 Results Reviewed Results Reviewed: Laboratory Last Values Urine pH (Auto) 6.0 07/15/23 14:03 Specific [place] (Auto) 1.015 07/15/23 14:03 Urine Protein (Auto) 0 mg/dL 07/15/23 14:03 Glucose (UA)(Auto) 0 mg/dL 07/15/23 14:03 Urine Ketones (Auto) Negative 07/15/23 14:03 Urine Blood (Auto) 0 Teodoro/uL 07/15/23 14:03 Urine Nitrite (Auto) Negative 07/15/23 14:03 Urine Bilirubin (Auto) 0 mg/dL 07/15/23 14:03 Urine Urobilinogen (Auto) 0 mg/dL 07/15/23 14:03 Leukocyte Esterase (Auto) 0 Ritesh/uL 07/15/23 14:03 Tst Clinic Negative 07/15/23 14:03 Assessment & Plan Assessment & Plan (1) Pelvic pain: Code(s): R10.2 - Pelvic and perineal pain Category: Medical Plan: Discussed: Workup including GC chlamydia and BV cultures and ultrasound. Urine is negative. Urine dip is negative. Yjwa-pev-rccfxxi self-help medications for mild pain including a heating pad. If any severe pain to go the emergency room for immediate evaluation. Return to the office after the ultrasound findings for a follow-up plan of care. All of her questions and concerns were addressed to the best of my abililty. She is agreeable to the plan of care. This note is constructed using voice recognition software. While every effort has been made to ensure accuracy, radiology asst errors may have been included. Orders: Orders AMB HCG Urine Test Today R10.2 - Pelvic and perineal pain US pelvic and transvaginal Today R10.2 - Pelvic and perineal pain AMB Urinalysis Automated Today R10.2 - Pelvic and perineal pain Coding Level of Care Code Est Pt Level 4 (23596) Diagnoses Pelvic pain R10.2
== END 2023-07-15 14:20 | disposition home or self-care (01) ==
LOC: HO.HWS 12:30
PROVIDERS: PCP Nurse Practitioner Family; Visit Provider Advanced Practice Midwife
DX: R10.2 Pelvic and perineal pain (principal)
CPT/HCPCS: 99214

== ENCOUNTER 2023-08-06 10:37 | Outpatient (REF) | payer OTHER, SELFPAY ==
--- NOTE | ~2023-08-06 | US_ITS ---
EXAMINATION: US PELVIS CLINICAL INFORMATION: Pelvic and perineal pain. COMPARISON: February 04, 2023. TECHNIQUE: Ultrasound of the pelvis is performed using both transabdominal and transvaginal transducers along with Doppler. Transvaginal imaging is performed due to inadequate visualization transabdominally. FINDINGS: The uterus is anteverted and measures 10.9 x 4.4 x 4.8 cm. Endometrial thickness is 9 mm. No significant free fluid. Left ovary measures 1.9 x 1.5 x 1.2 cm, volume 1.7 mL and is unremarkable. Right ovary measures 3.0 x 2.1 x 3.7 cm, volume 12.3 mL. Right ovarian 2.1 x 1.3 x 1.4 cm cyst appears simple. There is no specific indication for additional imaging at this time. US/US pelvic and transvaginal IMPRESSION: 1. Endometrial thickness is 9 mm. Correlation with menstrual history recommended to determine further management. 2. No discrete fibroid appreciated.
== END 2023-08-06 10:38 | disposition home or self-care (01) ==
LOC: HO.US 10:37
PROVIDERS: PCP Nurse Practitioner Family; Visit Provider Advanced Practice Midwife
DX: R10.2 Pelvic and perineal pain (principal)
CPT/HCPCS: 76830; 76856

== ENCOUNTER 2023-08-22 07:17 | Outpatient (AMB) | payer OTHER, SELFPAY ==
--- NOTE | 2023-08-22 07:51 | MHC.OFFVIS ---
Vital Signs 08/22/23 07:55 Height 5 ft 2 in Weight 213 lb 13.574 oz BMI 39.1 BP 110/72 Intake Visit Reasons: US follow up/Creole Cash Register Mechanic Required: Yes Cash Register Mechanic Language: Damien Creole Cash Register Mechanic Name: NICOLE #[id number] Information Interpreted: non-clinical & clinical Biomass Power Plant Manager: Biomass Power Plant Manager Present Accompanied by: Self / Same As Patient Allergies No Known Allergies Allergy (Verified 08/22/23 07:59) Is last menstrual period known: Yes HPI Comments Details: Patient is here today for a follow up pelvic ultrasound her prior exam she reported pelvic cramping for 1 month. All the cervical and vaginal cultures were negative. She reports left hip pain not seen by her PCP for this symptom. LMP approximately April cycles have been spacing on and off since stopping Depo in 2021. She denies any history of facial hair growth, acne, nipple discharge or hot flashes. She reports daily headaches and has a follow up with her primary care for the headaches. [facility] Medical History Obesity (BMI 30-39.9) Depression Anxiety Obesity, Class III, BMI 40-49.9 (morbid obesity) Painful urination Pelvic pain Irregular menses Headache Surgical History Hx of section Social History Household Members: Spouse and Children Housing: Apartment Housing Other:: intermediate Alcohol intake: never Patient Tobacco Use Status: Never used Tobacco e-Cigarette/Vaping Use: Never Used service: No Current occupational status: unemployed Sexual orientation: Straight/Heterosexual Gender identity: Female Cognitive needs: No Hearing needs: No Vision needs: No Review of Systems Const All systems reviewed & are unremarkable except as noted in HPI and below Endo Reports no additional complaints Physical Exam Vital Signs: Last Vital Signs BP 110/72 08/22/23 07:55 BMI result Body Mass Index 39.1 Const General: cooperative, healthy appearing and no acute distress Psych Appearance: well kempt Attitude: cooperative Thought process: Normal thought process present Results Reviewed Results Reviewed: [address] [address] Ultrasound Report Signed Patient: Nimisha Rose MR#: [id number] : 1985 Acct:[id number] Age/Sex: 37 / F ADM Date: 08/06/23 Loc: HO.US Attending Dr: Ngoc Pitts CNM Ordering Physician: Ngoc Pitts CNM Date of Service: 08/06/23 Procedure(s): US pelvic and transvaginal Accession Number(s): [id number] cc: Ngoc Pitts CNM; Sanjana Rueda [facility]-~ EXAMINATION: US PELVIS CLINICAL INFORMATION: Pelvic and perineal pain. COMPARISON: February 04, 2023. TECHNIQUE: Ultrasound of the pelvis is performed using both transabdominal and transvaginal transducers along with Doppler. Transvaginal imaging is performed due to inadequate visualization transabdominally. FINDINGS: The uterus is anteverted and measures 10.9 x 4.4 x 4.8 cm. Endometrial thickness is 9 mm. No significant free fluid. Left ovary measures 1.9 x 1.5 x 1.2 cm, volume 1.7 mL and is unremarkable. Right ovary measures 3.0 x 2.1 x 3.7 cm, volume 12.3 mL. Right ovarian 2.1 x 1.3 x 1.4 cm cyst appears simple. There is no specific indication for additional imaging at this time. US/US pelvic and transvaginal IMPRESSION: 1. Endometrial thickness is 9 mm. Correlation with menstrual history recommended to determine further management. 2. No discrete fibroid appreciated. Dictated By: Janet Moran MD Signed By: <Electronically signed by Janet Moran MD in OV> 08/19/23 0640 DD/ 1130 TD/TT: Tower Supervisor: Assessment & Plan Assessment & Plan (1) Encounter to discuss test results: Code(s): Z71.2 - Person consulting for explanation of examination or test findings (2) Amenorrhea: Code(s): N91.2 - Amenorrhea, unspecified Category: Medical Plan Discussed: Ultrasound findings are unremarkable. Plan blood work. Use of Prometrium 200 mg x 10 days, anticipatory withdrawal bleed. And then follow up in person in 3 weeks for review of labs and plan of care. All of her questions and concerns were addressed to the best of my ability and shared decision making. She is agreeable to the plan of care. This note is constructed using voice recognition software. While every effort has been made to ensure accuracy, roll or tape edge machine operator errors may have been included. Orders: Orders Testosterone, Free/Total Today N91.2 - Amenorrhea, unspecified Thyroid Stimulating Hormone Today N91.2 - Amenorrhea, unspecified Prolactin Today N91.2 - Amenorrhea, unspecified Follicle Stimulating Hormone Today N91.2 - Amenorrhea, unspecified Estradiol Ultra Sensitive Today N91.2 - Amenorrhea, unspecified HCG Quantitative Today N91.2 - Amenorrhea, unspecified Estrad Free (Tot Ultra + Free) Today N91.2 - Amenorrhea, unspecified Medications: New progesterone micronized (Prometrium) 200 mg PO ONCE 10 days 10 caps 0RF Coding Level of Care Code Est Pt Level 3 (75557) Diagnoses Encounter to discuss test results Z71.2 Amenorrhea N91.2
[2023-08-22 07:55] VITALS: BP 110/72; BMI 39.1
== END 2023-08-22 08:21 | disposition home or self-care (01) ==
LOC: HO.HWS 07:17
PROVIDERS: PCP Nurse Practitioner Family; Visit Provider Advanced Practice Midwife
DX: Z71.2 Person consulting for explanation of examination or test findings (principal); N91.2 Amenorrhea, unspecified
CPT/HCPCS: 99213

== ENCOUNTER → 2023-08-22 07:17 | Outpatient (BNVA) | payer OTHER, SELFPAY | PROVIDERS: PCP Nurse Practitioner Family; Visit Provider Advanced Practice Midwife | DX: N91.2 Amenorrhea, unspecified (principal); Z71.2 Person consulting for explanation of examination or test findings | CPT/HCPCS: 99212 ==

== ENCOUNTER 2023-09-12 08:06 | Outpatient (AMB) | payer OTHER, SELFPAY ==
--- NOTE | 2023-09-12 08:07 | MHC.OFFVIS ---
Vital Signs 09/12/23 08:15 Height 5 ft 2 in Weight 213 lb BMI 39.0 BP 122/68 Blood Pressure Location Lt brachial Position Sitting Intake Visit Reasons: 3 week follow up Alcohol Still Operator Required: Yes Alcohol Still Operator Language: Syrian Creole Alcohol Still Operator Name: Bro Brown([id number]) Energy Projects Lead: Energy Projects Lead Present Allergies No Known Allergies Allergy (Verified 09/12/23 08:16) Is last menstrual period known: Yes HPI Comments Details: Patient is here for an ultrasound follow up findings due to history of lower pelvic cramping at her last visit in June this discomfort had occurred for 1 month. Has her menses today with lower back pain. She reports a headache today. [facility] Medical History Obesity (BMI 30-39.9) Depression Anxiety Obesity, Class III, BMI 40-49.9 (morbid obesity) Painful urination Pelvic pain Irregular menses Headache Surgical History Hx of section Social History Household Members: Spouse and Children Housing: Apartment Housing Other:: fpc Alcohol intake: never Patient Tobacco Use Status: Never used Tobacco e-Cigarette/Vaping Use: Never Used service: No Current occupational status: unemployed Sexual orientation: Straight/Heterosexual Gender identity: Female Cognitive needs: No Hearing needs: No Vision needs: No Review of Systems Const All systems reviewed & are unremarkable except as noted in HPI and below Endo Reports no additional complaints Physical Exam Vital Signs: Last Vital Signs BP 122/68 09/12/23 08:15 BMI result Body Mass Index 39.0 Const General: cooperative, healthy appearing and no acute distress Psych Appearance: well kempt Attitude: cooperative Thought process: Normal thought process present Results Reviewed Results Reviewed: [address] [address] Ultrasound Report Signed Patient: Nimisha Rose MR#: [id number] : 1985 Acct:[id number] Age/Sex: 37 / F ADM Date: 08/06/23 Loc: HO.US Attending Dr: Ngoc Pitts CNM Ordering Physician: Ngoc Pitts CNM Date of Service: 08/06/23 Procedure(s): US pelvic and transvaginal Accession Number(s): [id number] cc: Ngoc Pitts CNM; [facility] RuedaP-~ EXAMINATION: US PELVIS CLINICAL INFORMATION: Pelvic and perineal pain. COMPARISON: February 04, 2023. TECHNIQUE: Ultrasound of the pelvis is performed using both transabdominal and transvaginal transducers along with Doppler. Transvaginal imaging is performed due to inadequate visualization transabdominally. FINDINGS: The uterus is anteverted and measures 10.9 x 4.4 x 4.8 cm. Endometrial thickness is 9 mm. No significant free fluid. Left ovary measures 1.9 x 1.5 x 1.2 cm, volume 1.7 mL and is unremarkable. Right ovary measures 3.0 x 2.1 x 3.7 cm, volume 12.3 mL. Right ovarian 2.1 x 1.3 x 1.4 cm cyst appears simple. There is no specific indication for additional imaging at this time. US/US pelvic and transvaginal IMPRESSION: 1. Endometrial thickness is 9 mm. Correlation with menstrual history recommended to determine further management. 2. No discrete fibroid appreciated. 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 Advised warnings when to call, if there is any significant pelvic pain or persistent pain go immediately to the emergency room. Patient has a follow up for her annual in November, monitor menstrual cycle symptoms for now continue use of ibuprofen the 1st couple of days of her cycle. Follow up with her primary care regarding her headaches, she has an appointment September 24 2023, advised to speak to the office sooner if headaches are worsening. All of her questions and concerns were addressed to the best of my ability and shared decision making. She is agreeable to the plan of care. This note is constructed using voice recognition software. While every effort has been made to ensure accuracy, equipment tech errors may have been included. Coding Level of Care Code Est Pt Level 3 (26967) Diagnoses Encounter to discuss test results Z71.2
[2023-09-12 08:15] VITALS: BP 122/68; BMI 39.0
== END 2023-09-12 10:04 | disposition home or self-care (01) ==
LOC: HO.HWS 08:06
PROVIDERS: PCP Nurse Practitioner Family; Visit Provider Advanced Practice Midwife
DX: Z71.2 Person consulting for explanation of examination or test findings (principal)
CPT/HCPCS: 99213

== ENCOUNTER → 2023-09-12 08:06 | Outpatient (BNVA) | payer OTHER, SELFPAY | PROVIDERS: PCP Nurse Practitioner Family; Visit Provider Advanced Practice Midwife | DX: Z71.2 Person consulting for explanation of examination or test findings (principal) | CPT/HCPCS: 99212 ==

== ENCOUNTER 2023-09-24 15:52 | Outpatient (AMB) | payer OTHER, SELFPAY ==
[2023-09-24 15:55] VITALS: BP 120/78; PULSE 83; O2SAT 98; BMI 37.1
--- NOTE | 2023-09-24 15:55 | MHC.PC.OV ---
Vital Signs 09/24/23 15:55 Height 5 ft 2 in Weight 203 lb 0.6 oz BMI 37.1 BP 120/78 Blood Pressure Location Lt brachial Position Sitting Pulse 83 Pulse Source Pulse Oximeter Pulse Oximetry (%) 98 Oxygen Delivery Method Room Air Intake Visit Reasons: PE Intake Note: Patient is here today for a physical. 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 [employer] Maintenance Worker Language: Italian Creole Allergies No Known Allergies Allergy (Verified 09/24/23 16:56) Medication List - Last Reconciled 09/24/23 by Jonny Childers MD acetaminophen 1,000 mg (2 x 500 mg) PO QID PRN pwtqnqrvzl-xqgzlflwkmlhb-nxdm 50-300-40 mg (Fioricet) 1 cap PO Q8H PRN ibuprofen 600 mg PO Q6H PRN progesterone micronized (Prometrium) 200 mg PO ONCE 10 days Tobacco use date assessed: 09/24/23 Dental Screening Dental Screen Date: 09/24/23 Did you have a dental visit in the last 12 months?: No Did you have a dental problem in the last 6 months where you did not have access to dental care?: No HPI PE HPI Details PatientComes in today for her annual physical examination States that she continues to experience on and off headaches - she takes Tylenol and/or Fioricet PRN with adequate relief of her headaches She denies any dizziness Denies any chest pains, no shortness of breath No nausea /vomiting, no abdominal pain No change in bowel habits noted She denies any acute urinary symptoms She was sent for a head CT back in February 2023 for further evaluation but patient never had the CT done It appears that there were several attempts made to contact her to schedule her head CT scan but she did not respond to any of the calls Patient now states that the phone number on her record is not the actual number to reach her and she is advised to update this before she leaves the office today She last had her annual gynecologic exam and pap smear done in November 2022 and is scheduled to see gynecology again for her annual exam in November 2023 [facility] Medical History (Updated 09/25/23 @ 03:15 by Jonny Childers MD) Vitamin D deficiency Obesity (BMI 30-39.9) Depression Anxiety Obesity, Class III, BMI 40-49.9 (morbid obesity) Painful urination Pelvic pain Irregular menses Headache Surgical History Hx of section Social History Household Members: Spouse and Children Housing: Apartment Housing Other:: nursing home Alcohol intake: never Patient Tobacco Use Status: Never used Tobacco e-Cigarette/Vaping Use: Never Used service: No Current occupational status: unemployed Sexual orientation: Straight/Heterosexual Gender identity: Female Cognitive needs: No Hearing needs: No Vision needs: No Questionnaire PHQ-9 Over the last 2 weeks, how often have you been bothered by any of the following problems? 1. Little interest or pleasure in doing things: not at all 2. Feeling down, depressed, or hopeless: not at all 3. Trouble falling or staying asleep, or sleeping too much: not at all 4. Feeling tired or having little energy: not at all 5. Poor appetite or overeating: not at all 6. Feeling bad about yourself - or that you are a failure or have let yourself or your family down: not at all 7. Trouble concentrating on things, such as reading the newspaper or watching television: not at all 8. Moving or speaking so slowly that other people could have noticed. Or the opposite - being so fidgety or restless that you have been moving around a lot more than usual: not at all 9. Thoughts that you would be better off or of hurting yourself in some way: not at all Total score: 0 Depression Screening Interpretation: Positive (is currently seeing a therapist) Depression Screening Follow-up: Existing condition and In treatment Depression Screening Done: Yes 40554 - PHQ-9 Billing: Yes Source: Developed by Drs. Damien Ortega, Emmanuelle Michaud, Trent Chandra and colleagues, with an educational tanika from [employer]. Thrive Questionnaire Date Thrive assessed: 09/24/23 I am a: Patient What is your living situation today?: I have a steady place to live Within the past 12 months, did the food you bought not last and you didn't have the money to get more?: Never true Within the past 12 months, did you worry whether your food would run out before you got money to buy more?: Never true Do you have trouble paying for medicines?: No Do you have trouble getting transportation to medical appointments?: No Do you have trouble paying your heating and electricity bill?: No Do you have trouble taking care of your child, family member or friend?: No Do you have trouble with day-to-day activities such as bathing, preparing meals, shopping, managing finances, etc.?: No Are you currently unemployed and looking for a job?: No Are you interested in more education?: No Please select the resources that you would like help with: None Currently or been in a relationship where the following occur: No concerns reported THRIVE Score: 0 AUDIT C Alcohol Use Questionnaire (AUDIT-C) 1. How often do you have a drink containing alcohol?: Never 2. How many drinks containing alcohol do you have on a typical day when you are drinking?: 1 or 2 (0) 3. How often do you have six or more drinks on one occasion?: Never Total Score: 0 Score Reviewed/Action Taken: Yes JESSA-7 AMB Questionnaire JESSA-7 Date JESSA - 7 assessed: 09/24/23 Feeling nervous, anxious, or on edge: 0 = Not at all Not being able to stop or control worryin = Not at all Worrying too much about different things: 0 = Not at all Trouble relaxin = Not at all Being so restless that it is hard to sit still: 0 = Not at all Becoming easily annoyed or irritable: 0 = Not at all Feeling afraid as if something awful might happen: 0 = Not at all Total JESSA-7 score (0-4 normal; 5-9 mild; 10-14 moderate; 15-21 severe): 0 Source: Developed by Drs. Damien Ortega, Emmanuelle Michaud, Trent Chandra and colleagues, with an educational tanika from [employer]. Review of Systems Const Denies chills, Reports fatigue, Denies fever(s), Reports headache(s) (on and off) and Denies malaise Eyes Reports blurry vision (at times when headaches increase), Denies change in vision, Denies irritation and Denies itchy eyes ENT Denies dysphagia, Denies dizziness, Denies otalgia, Reports headache(s) (on and off), Denies nasal congestion, Denies neck pain, Denies odynophagia, Denies sinus pain and Denies sore throat Card Denies chest pain, Denies rapid heart rate, Denies irregular heart rhythm, Denies palpitations and Denies dyspnea Resp Denies chest congestion, Denies cough, Denies dyspnea and Denies wheezing GI Denies abdominal pain, Denies bloating, Denies constipation, Denies dysphagia, Denies heartburn, Denies diarrhea, Denies nausea, Denies odynophagia and Denies vomiting Denies hematuria, Denies urinary frequency, Denies dysuria, Denies urinary incontinence and Denies urinary urgency Musc Denies back pain, Denies arthralgias, Denies joint swelling, Denies muscle weakness and Denies neck pain Skin/Breast Denies breast pain, Denies breast mass, Denies change in pigmentation, Denies lesions, Denies rash and Denies unusual bruising Neuro Denies dizziness, Reports headache(s) (on and off) and Denies paresthesias Psych Reports anxiety and Reports depression Endo Reports fatigue and Denies palpitations Jose/Lymph Denies easy bruising Aller/Immun Denies itchy eyes and Denies wheezing Physical exam (Primary Care) Vital Signs: Last Vital Signs Pulse 83 09/24/23 15:55 BP 120/78 09/24/23 15:55 Pulse Ox 98 09/24/23 15:55 Oxygen Delivery Method Room Air 09/24/23 15:55 BMI result Body Mass Index 37.1 Tobacco/Smoking Status: Tobacco use Status Tobacco use date assessed 09/24/23 09/24/23 15:56 Patient Tobacco Use Status Never used Tobacco 09/24/23 15:56 e-Cigarette/Vaping Use Never Used 09/24/23 15:56 PHQ-9: PHQ-9 Score PHQ-9: Total score 0 09/24/23 22:38 Depression Screening Interpretation: Positive (is currently seeing a therapist) Depression Screening Follow-up: Existing condition and In treatment Thrive Assessment: Date of Thrive Assessment Date Thrive assessed 09/24/23 09/24/23 15:56 Currently or been in a relationship where the following occur: No concerns reported Const General: no acute distress, alert and awake Orientation/consciousness: patient oriented x3 HENMT Head: Yes normocephalic and Yes atraumatic Ears: external ears normal, TM's normal bilaterally and EAC's normal General nose exam: No nasal discharge present Face and sinus: Yes normal facial exam and Yes sinuses nontender Teeth and gingiva: dentition normal Throat: Yes posterior oropharynx normal and Yes tonsils normal (no TP congestion) Eyes Eyelids: Yes eyelids normal Conjunctivae: conjunctivae normal Pupils: Equal, round and reactive pupils present EOM: EOMs intact bilaterally Neck Neck: Yes no lymphadenopathy and Yes supple Thyroid: Thyroid normal Resp Auscultation: clear to auscultation bilaterally, no rales and no wheezes Cardio Rate: regular rate Rhythm: regular rhythm Heart sounds: no murmurs GI Palpation (GI): Soft to palpation, nontender and No hepatosplenomegaly present Auscultation: normal bowel sounds General: Yes no CVA tenderness Back/Spine/Pelvis Back: no CVA tenderness Thoracic/Lumbar Spine: thoracic and lumbar spine normal to inspection Skin Lesions: no lesions Rashes: no rashes Neuro General: patient oriented x3, moves all extremities, no focal motor deficits and CN's II-XI intact bilaterally Cranial nerves: Yes Equal, round and reactive pupils present Cognition (Neuro): normal cognition Gait exam (Neuro): Normal gait present Extrem General: Yes no clubbing, cyanosis or edema Results Reviewed Results Reviewed: Laboratory Tests 03/08/23 03/08/23 08:34 08:41 WBC 4.5 L Hgb 13.4 Hct 42.2 Plt Count 257 ESR 7 Sodium 139 Potassium 3.8 Creatinine 0.73 Estimated GFR > 60 Fasting Glucose 91 Calcium 9.2 D AST 13 ALT 12 Triglycerides 66 Cholesterol 180 LDL Cholesterol, Calc 113 H HDL Cholesterol 54 25-OH Vitamin D Total 23.2 L TSH 1.65 Ur Specific [place] 1.020 Urine Protein Negative Urine Glucose (UA) Negative Urine Blood Small (1+) H Urine Nitrite Negative Ur Leukocyte Esterase Negative Assessment and Plan Assessment & Plan (1) Annual physical exam: Code(s): Z00.00 - Encounter for general adult medical examination without abnormal findings Plan: Check labs She is up-to-date with her annual pap smear and gynecologic exam (2) Headache: Code(s): R51.9 - Headache, unspecified Qualifiers: Headache type: unspecified Headache chronicity pattern: chronic headache Intractability: not intractable Qualified Code(s): R51.9 - Headache, unspecified; G89.29 - Other chronic pain Plan: Unclear etiology - possible tension headaches Patient was sent for head CT for further evaluation at her last visit in February 2023 but she never had the CT done It appears that there were several attempts made to contact her to schedule her head CT but she did not respond to any of the calls Patient now states that the phone number on her record is not the actual number where she can be reached and she is advised to update this before she leaves the office today - head CT is REordered today Will also refer her to neurology for further evaluation and management Continue Fioricet 1 tablet TID PRN and/or OTC Tylenol PRN for headaches for now (3) Vitamin D deficiency: Code(s): E55.9 - Vitamin D deficiency, unspecified Plan: Patient is advised that her Vitamin D level was low when she had her labs done back in February 2023 Will start her on Vitamin D3 2000 units QD (4) Anxiety: Code(s): F41.9 - Anxiety disorder, unspecified Plan: Follow up with her therapist as scheduled (5) Depression: Code(s): F32.A - Depression, unspecified Qualifiers: Depression Type: major depressive disorder Major depression recurrence: recurrent Active/Remission status: currently active Major depression episode severity: unspecified Qualified Code(s): F33.9 - Major depressive disorder, recurrent, unspecified Plan: Follow up with her therapist/psychiatrist as scheduled (6) Obesity (BMI 30-39.9): Code(s): E66.9 - Obesity, unspecified Plan: Reinforced diet/exercise as tolerated/lose weight Plan Follow up in 6 months Orders: Orders TSH reflex Free T4 09/24/23 E78.00 - Pure hypercholesterolemia, unspecified, Z00.00 - Encounter for general adult medical examination without abnormal findings UA CC w/rflx Micro + Cult 09/24/23 R30.0 - Dysuria, Z00.00 - Encounter for general adult medical examination without abnormal findings Vitamin D 25-OH Total 09/24/23 E55.9 - Vitamin D deficiency, unspecified, Z00.00 - Encounter for general adult medical examination without abnormal findings CT head/brain wo IV con 09/24/23 G89.29 - Other chronic pain, R51.9 - Headache, unspecified Complete Blood Count Auto Diff 09/24/23 D64.9 - Anemia, unspecified, Z00.00 - Encounter for general adult medical examination without abnormal findings Comprehensive Huntington. Panel Fast 09/24/23 E78.00 - Pure hypercholesterolemia, unspecified, Z00.00 - Encounter for general adult medical examination without abnormal findings Lipid Panel 09/24/23 E78.00 - Pure hypercholesterolemia, unspecified, Z00.00 - Encounter for general adult medical examination without abnormal findings Hemoglobin Electrophoresis 09/24/23 D64.9 - Anemia, unspecified Referrals Neurology Referral G89.29 - Other chronic pain, R51.9 - Headache, unspecified Medications: New cholecalciferol (vitamin D3) 50 mcg PO DAILY 90 days 90 caps 3RF E55.9 - Vitamin D deficiency, unspecified Coding Level of Care Code Est Pt Prev Care 18-39y(27449) Diagnoses Annual physical exam Z00.00 Chronic nonintractable headache, unspecified headache type R51.9; G89.29 Headache type: unspecified Headache chronicity pattern: chronic headache Intractability: not intractable Vitamin D deficiency E55.9 Anxiety F41.9 Episode of recurrent major depressive disorder, unspecified depression episode severity F33.9 Depression Type: major depressive disorder Major depression recurrence: recurrent Active/Remission status: currently active Major depression episode severity: unspecified Obesity (BMI 30-39.9) E66.9
== END 2023-09-24 17:03 | disposition home or self-care (01) ==
PROVIDERS: PCP Nurse Practitioner Family; Visit Provider Internal Medicine
DX: Z00.00 Encounter for general adult medical examination without abnormal findings (principal); F33.9 Major depressive disorder, recurrent, unspecified; R51.9 Headache, unspecified; G89.29 Other chronic pain; E55.9 Vitamin D deficiency, unspecified; F41.9 Anxiety disorder, unspecified; E66.9 Obesity, unspecified
CPT/HCPCS: 99395

== ENCOUNTER 2023-09-30 08:14 | Outpatient (REF) | payer OTHER, SELFPAY ==
[2023-09-30 08:27] LABS: MANUAL DIFF FLAG NO
[2023-09-30 08:45] LABS: Appearance Urine Clear; Color Urine Yellow; Glucose Urine UA Negative (Negative); Leukocyte Esterase Urine Small (1+) (Negative); Nitrite Urine Negative (Negative); PH 5.5 (5.0-9.0); UMIC TRIGGER UACC YES; Urine Blood Negative (Negative); Urine Ketones Negative (Negative); Urine Protein Negative (Neg-Trace)
[2023-09-30 09:03] LABS: Bacteria Urine None Seen (None Seen); Hyaline Casts Urine 0-2 /LPF (0-2); RBC Urine 0-2 /HPF (0-2); Squamous Epithelial Cell Urine 0-2 /HPF (0-2); UACC Culture Trigger YES; WBC Urine 0-5 /HPF (0-5)
[2023-09-30 09:21] LABS: Basophils Absolute Auto 0.1 X10*3/uL (0.0-0.2); Basophils Percent Auto 1.3 % (0-2); Eosinophils Absolute Auto 0.1 X10*3/uL (0.0-0.4); Eosinophils Percent Auto 2.3 % (0-4); Hematocrit 41.6 % (37.0-47.0); Hemoglobin 13.2 g/dl (12.0-16.0); Imm Gran Abs Auto 0.01 X10*3/uL (0.00-0.03); Imm Gran Pct Auto 0.3 % (0.0-0.4); Lymphocytes Absolute Auto 1.7 X10*3/uL (1.2-4.9); Lymphocytes Percent Auto 43.4 % (20-40); Mean Corpuscular HGB Conc 31.7 g/dl (31.0-35.0); Mean Corpuscular Hemoglobin 25.2 pg (27.0-33.0); Mean Corpuscular Volume 79.5 fL (80.0-98.0); Monocytes Absolute Auto 0.3 X10*3/uL (0.1-1.2); Monocytes Percent Auto 8.3 % (2-11); Neutrophils Absolute Auto 1.8 x10*3/uL (2.0-8.3); Neutrophils Percent Auto 44.4 % (45-73); Platelet Count 226 X10*3/uL (160-400); Red Blood Count 5.23 X10*6/uL (4.20-5.50); Red Cell Distribution Width 15.3 % (11.0-16.0)
[2023-09-30 10:03] LABS: Alanine Aminotransferase 18 U/L (0-31); Albumin Level 4.1 g/dL (3.5-5.0); Alkaline Phosphatase 71 U/L (39-117); Anion Gap 13 (12-20); Aspartate Amino Transferase 16 U/L (5-31); Bilirubin Total 0.5 mg/dL (0.0-1.0); Blood Urea Nitrogen 12 mg/dL (9-16); Calcium 9.6 mg/dL (8.4-10.2); Carbon Dioxide 25 mmol/L (22-29); Chloride 106 mmol/L (96-108); Cholesterol 157 mg/dL (<200); Estimated Glomerular Filt Rate > 60; Glucose Fasting 96 mg/dL (60-99); HDL Cholesterol 55 mg/dL (>40); LDL Cholesterol Calculated 94 mg/dL (<100); Sodium 140 mmol/L (135-145); Total Protein 7.1 g/dL (6.5-8.0); Triglycerides 40 mg/dL (<150)
[2023-09-30 10:07] LABS: HCG Quantitative < 2 mIU/mL
[2023-09-30 10:12] LABS: TSH reflex Free T4 1.65 uIU/mL (0.32-4.0); Thyroid Stimulating Hormone 1.65 uIU/mL (0.32-4.0); Vitamin D 25-OH Total 29.8 ng/mL (>30)
[2023-10-01 12:08] LABS: Follicle Stimulating Hormone 4.2 mIU/mL
[2023-10-02 14:04] LABS: Hematocrit 41.9 % (35.0-45.0); Hemoglobin 13.3 g/dL (11.7-15.5); MCH 25.6 pg (27.0-33.0); MCV 80.6 fL (80.0-100.0); RDW 14.7 % (11.0-15.0)
[2023-10-04 15:52] LABS: Testosterone, Total 35 ng/dL (2-45)
[2023-10-11 05:23] LABS: Estradiol Free 11.17 pg/mL; Estradiol, Ultrasensitive 552 pg/mL
== END 2023-09-30 08:15 | disposition home or self-care (01) ==
LOC: HO.LAB 08:14
PROVIDERS: Advanced Practice Midwife; PCP Internal Medicine; Visit Provider Internal Medicine
DX: Z00.00 Encounter for general adult medical examination without abnormal findings (principal); D64.9 Anemia, unspecified; E78.00 Pure hypercholesterolemia, unspecified; E55.9 Vitamin D deficiency, unspecified; N91.2 Amenorrhea, unspecified; R82.71 Bacteriuria; B96.89 Other specified bacterial agents as the cause of diseases classified elsewhere
CPT/HCPCS: 36415; 80053; 80061; 81001; 82306; 82670; 82681; 83001; 83020; 84146; 84402; 84403; 84443; 84702; 85014; 85018; 85025; 85041; 87086; 87088; 87186

== ENCOUNTER 2023-10-31 12:59 | Outpatient (REF) | payer OTHER, SELFPAY ==
--- NOTE | ~2023-10-31 | CT_ITS ---
EXAMINATION CT HEAD WITHOUT CONTRAST CLINICAL INFORMATION: Headache COMPARISON: None TECHNIQUE: CT of the head was performed without intravenous contrast. Reformatted axial, coronal, and sagittal images were reviewed. This CT examination was performed using dose optimization techniques as appropriate, variously including the following: *Automated exposure control *Adjustment of mA and/or kV according to patient size (this includes techniques or standardized protocols for targeted exams where dose is matched to indication/reason for exam; i.e. extremities or head) *Use of iterative reconstruction technique DLP: 688 mGy-cm FINDINGS: No intracranial hemorrhage, extra-axial fluid collection, or midline shift is identified. Paiz-white matter differentiation is preserved. The ventricles are within normal limits. Basal cisterns are within normal limits. Paranasal sinuses are clear. Mastoid air cells and middle ear cavities are clear. No acute calvarial fractures. Bilateral proptosis. CT/CT head/brain wo IV con IMPRESSION: 1. No acute intracranial abnormality. 2. Proptosis. Electronically signed by: Amari Turner DO 11/17/2023 11:05 PM EDT
== END 2023-10-31 13:00 | disposition home or self-care (01) ==
LOC: HO.CT 12:59
PROVIDERS: PCP Internal Medicine; Visit Provider Internal Medicine
DX: R51.9 Headache, unspecified (principal); G89.29 Other chronic pain
CPT/HCPCS: 70450

== ENCOUNTER 2023-12-11 08:12 | Outpatient (AMB) | payer OTHER, SELFPAY ==
--- NOTE | 2023-12-11 08:31 | MHC.OFFVIS ---
Intake Visit Reasons: Lab follow up Pot Room Supervisor Required: Yes Pot Room Supervisor Language: Damien Joe Pot Room Supervisor Name: Benito [id number] Information Interpreted: non-clinical & clinical Full Stack Net Developer: Full Stack Net Developer Present Allergies No Known Allergies Allergy (Verified 12/11/23 08:32) Is last menstrual period known: Yes HPI Comments Details: Patient is here today for a follow up lab work and ultrasound, due to the history of irregularly spaced cycles. Currently using condoms for BC. She last used Prometrium in September and had a cycle, and bled spontaneously November 30. She has no other concerns today. [facility] Medical History (Updated 09/25/23 @ 03:15 by Jonny Childers MD) Vitamin D deficiency Obesity (BMI 30-39.9) Depression Anxiety Obesity, Class III, BMI 40-49.9 (morbid obesity) Painful urination Pelvic pain Irregular menses Headache Surgical History Hx of section Social History Household Members: Spouse and Children Housing: Apartment Housing Other:: longterm Alcohol intake: never Patient Tobacco Use Status: Never used Tobacco e-Cigarette/Vaping Use: Never Used service: No Current occupational status: unemployed Sexual orientation: Straight/Heterosexual Gender identity: Female Cognitive needs: No Hearing needs: No Vision needs: No Review of Systems Const All systems reviewed & are unremarkable except as noted in HPI and below Endo Reports no additional complaints Physical Exam Const General: cooperative, healthy appearing and no acute distress Psych Appearance: well kempt Attitude: cooperative Thought process: Normal thought process present Results Reviewed Results Reviewed: [address] [address] Ultrasound Report Signed Patient: Nimisha Rose MR#: [id number] : 1985 Acct:[id number] Age/Sex: 37 / F ADM Date: 08/06/23 Loc: HO.US Attending Dr: Ngoc Pitts CNM Ordering Physician: Ngoc Pitts CNM Date of Service: 08/06/23 Procedure(s): US pelvic and transvaginal Accession Number(s): [id number] cc: Ngoc Pitts CNM; Sanjana Rueda SHUTTLE VENEERING SUPERVISOR-BC~ EXAMINATION: US PELVIS CLINICAL INFORMATION: Pelvic and perineal pain. COMPARISON: February 04, 2023. TECHNIQUE: Ultrasound of the pelvis is performed using both transabdominal and transvaginal transducers along with Doppler. Transvaginal imaging is performed due to inadequate visualization transabdominally. FINDINGS: The uterus is anteverted and measures 10.9 x 4.4 x 4.8 cm. Endometrial thickness is 9 mm. No significant free fluid. Left ovary measures 1.9 x 1.5 x 1.2 cm, volume 1.7 mL and is unremarkable. Right ovary measures 3.0 x 2.1 x 3.7 cm, volume 12.3 mL. Right ovarian 2.1 x 1.3 x 1.4 cm cyst appears simple. There is no specific indication for additional imaging at this time. US/US pelvic and transvaginal IMPRESSION: 1. Endometrial thickness is 9 mm. Correlation with menstrual history recommended to determine further management. 2. No discrete fibroid appreciated. Dictated By: Janet Moran MD Signed By: <Electronically signed by Janet Moran MD in OV> 08/19/23 0640 DD/ 1130 TD/TT: Chemist Instrumentation: Assessment & Plan Assessment & Plan (1) Irregular menses: Code(s): N92.6 - Irregular menstruation, unspecified Category: Medical (2) Encounter to discuss test results: Code(s): Z71.2 - Person consulting for explanation of examination or test findings Plan Discussed: Lab work and pelvic ultrasound. All labs with the exception of estradiol (552) were normal. Reviewed weight patient has lost over 20 lb in the last approximate 14 months span which she is pleased with. We reviewed hormonal imbalances, causative factors, goals for weight loss. Encouraged continued Mediterranean type diet, and regular exercise for weight management. Monitor menstrual cycles, report any unscheduled bleeding, bleeding episodes <24 days apart or heavy/prolonged menstrual bleeding. Call the office for a follow up for any concerns. She has a scheduled annual exam 02/04/2024. Refill on Prometrium sent in, she will use if indicated. If no menses to do a home test if positive reports the office soon as possible. All of her questions and concerns were addressed to the best of my ability and shared decision making. She is agreeable to the plan of care. This note is constructed using voice recognition software. While every effort has been made to ensure accuracy, special delivery worker errors may have been included. Medications: Refilled progesterone micronized (Prometrium) 200 mg PO ONCE 10 days 10 caps 0RF Coding Level of Care Code Est Pt Level 3 (98034) Diagnoses Irregular menses N92.6 Encounter to discuss test results Z71.2
== END 2023-12-11 08:59 | disposition home or self-care (01) ==
LOC: HO.HWSW 08:12
PROVIDERS: PCP Internal Medicine; Visit Provider Advanced Practice Midwife
DX: N92.6 Irregular menstruation, unspecified (principal); Z71.2 Person consulting for explanation of examination or test findings
CPT/HCPCS: 99213

== ENCOUNTER → 2023-12-11 08:12 | Outpatient (BNVA) | payer OTHER, SELFPAY | PROVIDERS: PCP Internal Medicine; Visit Provider Advanced Practice Midwife | DX: Z71.2 Person consulting for explanation of examination or test findings (principal); N92.6 Irregular menstruation, unspecified | CPT/HCPCS: 99212 ==

== ENCOUNTER 2024-02-03 13:11 | Outpatient (REF) | payer OTHER, SELFPAY | END 2024-02-03 13:12 | disposition home or self-care (01) | LOC: HO.LNP 13:11 | PROVIDERS: PCP Internal Medicine; Visit Provider Advanced Practice Midwife | DX: Z01.419 Encounter for gynecological examination (general) (routine) without abnormal findings (principal); R10.2 Pelvic and perineal pain; Z32.02 Encounter for pregnancy test, result negative | CPT/HCPCS: 81002; 99395 ==

== ENCOUNTER 2024-02-03 13:11 | Outpatient (AMB) | payer OTHER, SELFPAY ==
--- NOTE | 2024-02-03 13:29 | A.OFFVIS_ITS ---
Vital Signs 02/03/24 13:30 Height 5 ft 2 in Weight 211 lb 4 oz BMI 38.6 BP 126/72 Blood Pressure Location Rt brachial Position Sitting Intake Visit Reasons: Annuual/ 45 miins, Room 3 Intake Note: patient has pain on the LRQ constantly for 2 days. Compressor Mechanic Required: Yes Compressor Mechanic Services: Compressor Mechanic Present Compressor Mechanic Name: Sudha [id number] Information Interpreted: non-clinical & clinical Allergies No Known Allergies Allergy (Verified 12/11/23 08:32) Is last menstrual period known: Yes Last menstrual period: 01/24/24 Post menopausal: No Patient : No HPI Comments Details: She is a premenopausal woman presenting for annual examination and reports right-sided pelvic initially with the MA, during the exam pointed to the upper right flank and upper abdominal region. Pain onset x 2 days, she denies nausea, vomiting, fever, diarrhea, constipation, or urinary symptoms. Regular monthly menses. Currently is sexually active, uses condoms and a calendar yusuf. She denies vaginal itching and irritation. She tries to eat healthy and stays active with exercise. Denies family history of breast, ovarian or colon cancer. Last pap smear 2022, negative. [facility] Medical History (Updated 02/03/24 @ 14:07 by Ngoc Pitts CNM) Vitamin D deficiency Obesity (BMI 30-39.9) Depression Anxiety Obesity, Class III, BMI 40-49.9 (morbid obesity) Painful urination Pelvic pain Irregular menses Headache Surgical History Hx of section Social History Household Members: Spouse and Children Housing: Apartment Housing Other:: residential Alcohol intake: never Patient Tobacco Use Status: Never used Tobacco e-Cigarette/Vaping Use: Never Used service: No Current occupational status: unemployed Sexual orientation: Straight/Heterosexual Gender identity: Female Cognitive needs: No Hearing needs: No Vision needs: No Female Reproductive History Menstrual Age of Menarche: 14 Duration of menses: 3-5 days Date of last menstrual period: 01/24/24 control method: other (Condom) Total pregnancies: 2 Full term: 2 Number of Living Children: 2 Date of last pap smear: 11/15/22 (NML) History of abnormal pap smear: No History of STI: No Review of Systems Const All systems reviewed & are unremarkable except as noted in HPI and below Reports as per HPI Eyes Reports no additional complaints ENT Reports no additional complaints Card Reports no additional complaints Resp Reports no additional complaints GI Reports as per HPI and Reports no additional complaints Reports as per HPI Musc Reports no additional complaints Skin/Breast Reports as per HPI Neuro Reports no additional complaints Psych Reports no additional complaints Endo Reports no additional complaints Jose/Lymph Reports no additional complaints Aller/Immun Reports no additional complaints Physical Exam Vital Signs: Last Vital Signs BP 126/72 02/03/24 13:30 BMI result Body Mass Index 38.6 Const General: cooperative, healthy appearing, no acute distress, well developed and alert Orientation/consciousness: patient oriented x3 HEENT Head: Yes normal to inspection Eyes General: appearance normal, both eyes and all related structures Neck Neck: Yes normal visual inspection Thyroid: Thyroid normal Chest Chest palpation & inspection: normal inspection of the chest and other (no puckering, dimpling, peau de orange, retraction, discharge, masses) Breast/axilla inspection: normal inspection of the breasts Breast/axilla palpation: normal palpation of the breasts Resp Effort & Inspection: normal respiratory effort GI Inspection: Yes normal to inspection and Yes scar Palpation (GI): Soft to palpation Rectal Exam - Female: deferred General: Yes bladder normal to palpation External Female Exam: normal external appearance and normal appearance of the urethra Speculum Exam - Vagina: normal appearance of the vagina, normal palpation, normal vaginal discharge, erythematous (Upper right wall linear markings) and vaginal bleeding (Very small amount) Speculum Exam - Cervix: normal appearance of the cervix and normal palpation Bimanual exam- vagina & uterus: normal bimanual exam, normal palpation, uterine size normal, bladder normal to palpation, normal palpation and non-tender Bimanual Exam- Adnexa, other: no masses OB/external & speculum: vaginal bleeding (Very small amount) Skin General skin exam: no rashes or lesions noted Rashes: no rashes Neuro General: patient oriented x3 Cognition (Neuro): normal cognition Extrem General: Yes normal to inspection Psych Attitude: cooperative Thought process: Normal thought process present Assessment & Plan Assessment & Plan (1) Encounter for well woman exam with routine gynecological exam: Code(s): Z01.419 - Encounter for gynecological examination (general) (routine) without abnormal findings Category: Medical Plan Discussed: Current recommendations for pap smears per ASCCP guidelines. Breast awareness and periodic breast exams. Maintain a healthy lifestyle including a well balanced diet and routine exercise. Continue condoms use, if late for cycle to do a home test and report any positive test for a follow up in the office. Admits to intimacy last night denies any trauma or pain to the vagina. Urine culture sent due to 1+ leukocytes. GC chlamydia and BV panel obtained. Advised to see her primary care for upper GI and flank pain discomfort, advised to call today. Patient verbalizes understanding and agrees to the plan of care. She was given opportunity to ask questions and all questions were answered to the best of my ability. RTO in one year for annual embossed or impressed lettering painter examination. This note is constructed using voice recognition software. While every effort has been made to ensure accuracy, management instructor errors may have been included. Orders: Orders AMB HCG Urine Test Today Z32.02 - Encounter for test, result negative Bacterial Vaginosis Panel Today Z01.419 - Encounter for gynecological examination (general) (routine) without abnormal findings AMB Urinalysis Dipstick Today R10.2 - Pelvic and perineal pain, Z01.419 - Encounter for gynecological examination (general) (routine) without abnormal findings CT NG by PCR Today Z01.419 - Encounter for gynecological examination (general) (routine) without abnormal findings Urine Culture Today R10.2 - Pelvic and perineal pain, Z01.419 - Encounter for gynecological examination (general) (routine) without abnormal findings Coding Level of Care Code Est Pt Prev Care 18-39y(90918) Diagnoses Encounter for well woman exam with routine gynecological exam Z01.419
[2024-02-03 13:30] VITALS: BP 126/72; BMI 38.6
== END 2024-02-03 14:45 | disposition home or self-care (01) ==
LOC: HO.HWS 13:11
PROVIDERS: PCP Internal Medicine; Visit Provider Advanced Practice Midwife
DX: Z01.419 Encounter for gynecological examination (general) (routine) without abnormal findings (principal); R10.2 Pelvic and perineal pain
CPT/HCPCS: 99395

== ENCOUNTER 2024-02-03 14:28 | Outpatient (REF) | payer OTHER, SELFPAY ==
[2024-02-04 06:09] LABS: CT PCR NOT DETECTED (Not Detect.); NG PCR NOT DETECTED (Not Detect.)
[2024-02-04 10:55] LABS: Bacterial Vaginosis PCR NEGATIVE (Negative); Candida Group PCR NOT DETECTED (Not Detect); Candida glab krusei PCR NOT DETECTED (Not Detect); Trichomonas vaginalis PCR NOT DETECTED (Not Detect)
== END 2024-02-03 14:29 | disposition home or self-care (01) ==
LOC: HO.LAB 14:28
PROVIDERS: Visit Provider Advanced Practice Midwife
DX: Z01.419 Encounter for gynecological examination (general) (routine) without abnormal findings (principal); R10.2 Pelvic and perineal pain; R82.79 Other abnormal findings on microbiological examination of urine
CPT/HCPCS: 0352U; 87086; 87491; 87591

== ENCOUNTER 2024-03-28 14:38 | Emergency (ER) | payer OTHER, SELFPAY | END 2024-03-28 18:51 | disposition left against medical advice (07) | PROVIDERS: Emergency Provider Emergency Medicine; PCP Internal Medicine | DX: R51.9 Headache, unspecified (principal); M79.10 Myalgia, unspecified site ==

== ENCOUNTER 2024-03-30 19:30 | Emergency (ER) | payer OTHER, SELFPAY ==
--- NOTE | ~2024-03-30 | XR_ITS ---
CLINICAL HISTORY: coughing. Pneumonia? 1 view chest x-ray Comparison: CR/SR - XR CHEST 2V - 08/06/22 14:24 EDT Findings: No consolidation or effusion. Heart size is normal. No acute fracture. IMPRESSION: 1. No acute findings. This document has been electronically signed by: Rodrigo Rodriguez MD on 03/30/2024 20:13:42
[2024-03-30 19:34] VITALS: BP 103/83; PULSE 129; RESP 20; TEMP 39.3; O2SAT 97; BMI 39.1
--- NOTE | 2024-03-30 19:39 | ED_ITS ---
HPI - General Adult General Chief complaint: Fever Stated complaint: headache Time Seen by Provider: 03/31/24 00:01 Source: patient Mode of arrival: EMS Limitations: language barrier (Kittitian Creole speaking only, iPad mirror maker used) History of Present Illness ED Provider: Dr. Kaleb Scales HPI narrative: 38-year-old female with a history of obesity, depression, anxiety, irregular menses, headache who presents emergency department for evaluation of body ache, headache, fever, chills, frequency, urgency and dysuria times 2 weeks. Patient states that she gets intermittent, severe headaches which she describes as a diffuse throbbing sensation associated with shaking chills and body pain. She also states that her entire body aches and she feels fatigued. She has had frequency urgency and dysuria. She has been taking Tylenol and a leave without relief any for pain. Currently in the emergency department she has a headache which is 6/10. She had no associated nausea vomiting or diarrhea. Related Data Previous Rx's ?Medication ?Instructions ?Recorded acetaminophen 500 mg tablet 1,000 mg (2 x 500 mg) PO QID PRN 08/06/22 pain #30 tabs ibuprofen 600 mg tablet 600 mg PO Q6H PRN pain #20 tabs 08/06/22 clpamrpjfx-sergqegmyektd-jaioolor 1 cap PO Q8H PRN headache #30 caps 03/07/23 50 mg-300 mg-40 mg capsule (Fioricet) doxycycline hyclate 100 mg capsule 100 mg PO BID 7 days #14 caps 02/18/24 cpvdfww-sfamqmskdomjy-riywjkmo 250 2 tab PO Q6H PRN headache #20 tabs 03/31/24 mg-250 mg-65 mg tablet (Excedrin Extra Strength) cefuroxime axetil 250 mg tablet 250 mg PO Q12H 5 days #10 tabs 03/31/24 diphenhydramine HCl 25 mg capsule 50 mg (2 x 25 mg) PO Q6H PRN 03/31/24 headache, nausea, vomiting #20 caps metoclopramide HCl 10 mg tablet 10 mg PO Q6H PRN nausea and 03/31/24 (Reglan) vomiting #14 tabs Allergies Allergy/AdvReac Type Severity Reaction Status Date / Time No Known Allergies Allergy Verified 03/30/24 19:40 Review of Systems 2 Review of Systems: Yes all other systems are reviewed and are negative [facility] Past Medical History [facility] Narrative: Social history: She was in her drove her to the emergency department. She denies tobacco, alcohol and drug use. Medical History (Updated 03/31/24 @ 00:55 by Kaleb Scales MD) Vitamin D deficiency Obesity (BMI 30-39.9) Depression Anxiety Obesity, Class III, BMI 40-49.9 (morbid obesity) Painful urination Pelvic pain Irregular menses Headache Surgical History Hx of section Social History Social History Household Members: Spouse and Children Housing: Apartment Housing Other:: group home Alcohol intake: never Patient Tobacco Use Status: Never used Tobacco Smoked in Last 30 Days: No e-Cigarette/Vaping Use: Never Used Use of substances other than those prescribed or required for medical reasons: No Advance Directives: No Advance Directives Information Provided: Yes Do you have a plan to hurt others: No Plan Patient : No service: No Current occupational status: unemployed Sexual orientation: Straight/Heterosexual Gender identity: Female Cognitive needs: No Hearing needs: No Vision needs: No Physical Exam ED Vital Signs: Vital Signs - 24 hr 03/30/24 19:34 03/30/24 23:31 03/31/24 00:02 Temperature 102.8 F H 97.5 F 98.0 F Pulse Rate 129 H 88 84 Respiratory Rate 20 18 16 Blood Pressure 103/83 115/66 99/56 L Pulse Oximetry 97 100 99 Oxygen Delivery Method Room Air Room Air Room Air 03/31/24 01:20 Temperature 98.2 F Pulse Rate 76 Respiratory Rate 16 Blood Pressure 137/89 Pulse Oximetry 98 Oxygen Delivery Method Room Air BMI result Body Mass Index 39.1 Vital signs revealed a fever of 102.8 degrees F, elevated heart rate of 129 Exam: General: Awake, alert in no distress Head: Normocephalic, atraumatic EENT: PERRL, Lids normal, sclera normal, conjunctiva normal, nose normal , ears normal, throat without erythema or exudates Neck: Supple, no adenopathy Lung: breath sounds symmetric, no wheezing, rales or rhonchi Chest: symmetric movement, nontender Heart: regular rate and rhythm, normal S1, S2 no murmurs or rubs Abdomen: soft, mild to moderate suprapubic tenderness nondistended, normal bowel sounds Back: no vertebral tenderness, no CVAT Extremities: no deformities, moves all extremities symmetrically Neuro: Awake, alert, oriented, normal speech, cranial nerves intact, moves all extremities symmetrically Psych: Pleasant, cooperative Course Course Course Narrative: RME: 38-year-old female presents to ED for headache, sore throat aches, fever, chills, body aches and dry cough. SARs strep chest x-ray ordered. Medications Administered Discontinued Medications Generic Name Dose Route Start Last Admin Trade Name Freq PRN Reason Stop Dose Admin Acetaminophen 650 mg 03/31/24 00:51 03/31/24 01:12 Acetaminophen 325 Mg Tablet PO 03/31/24 00:52 650 mg ONCE ONE Administration Cefuroxime Axetil 250 mg 03/31/24 00:51 03/31/24 01:12 Cefuroxime Axetil 250 Mg Tablet PO 03/31/24 00:52 250 mg ONCE ONE Administration Diphenhydramine HCl 50 mg 03/31/24 00:51 03/31/24 01:13 Diphenhydramine Hcl 25 Mg Capsule PO 03/31/24 00:52 50 mg ONCE ONE Administration Ibuprofen 800 mg 03/30/24 19:40 03/30/24 19:42 Ibuprofen 800 Mg Tablet PO 03/30/24 19:41 800 mg ONCE ONE Administration Metoclopramide HCl 10 mg 03/31/24 00:51 03/31/24 01:12 Metoclopramide Hcl 10 Mg Tablet PO 03/31/24 00:52 10 mg ONCE STA Administration Medical Decision Making Medical Decision Making MDM Narrative: 38-year-old female with a history of obesity, depression, anxiety, irregular menses, headache who presents emergency department for evaluation of body ache, headache, fever, chills, frequency, urgency and dysuria times 2 weeks. Patient was on have a fever of 102.8 degrees F and an elevated heart rate. She was treated with ibuprofen 800 mg orally at triage. Physical examination did reveal suprapubic tenderness otherwise was unremarkable. Differential diagnosis: ?Includes but is not limited to viral syndrome, migraine headache, urinary tract infection, anemia, electrolyte abnormalities, COVID-19, influenza, RSV, strep throat Course: 01:03 My interpretation patient's laboratory evaluation is as follows: Chronic microcytic anemia with an H&H of 12.4 and 36.2 with an MCV of 76.2. WBC was normal 6800. Glucose elevated 137. AST and ALT elevated 45 and 55. Alk-phos elevated 159. Bilirubin elevated 1.4. COVID-19, influenza, RSV and rapid strep were negative. Urinalysis was positive for protein blood and leukocyte esterase. Microscopic revealed 0-2 RBCs, greater than 50 WBCs, 3-5 squamous cells, 4+ bacteria-these findings are consistent with a urinary tract infection. Urinary test was negative. Patient's presentation is consistent with acute viral syndrome and a urinary tract infection and I did discuss this with the patient. She initially had a fever which improved with oral ibuprofen. Patient was treated with cefuroxime 250 mg orally here in the emergency department and given a prescription for cefuroxime 250 mg q.12 hours x5 days. Patient was also complaining of the headache in the emergency department and was Reglan 10 mg orally, Tylenol 650 mg orally and Benadryl 50 mg orally. Patient was given printed and verbal instructions and discharged home. Admission/Observation Consideration of admission/observation: Escalation of care including admission/observation considered (Yes) Lab Data MDM Lab Attestation statement: I reviewed the patient's lab results. 03/30/24 20:07 03/30/24 20:07 Labs: Lab Results 03/30/24 03/30/24 03/31/24 Range/Units 19:56 20:07 00:20 WBC 6.8 (4.8-10.8) X10*3/uL RBC 4.75 (4.20-5.50) X10*6/uL Hgb 12.4 (12.0-16.0) g/dl Hct 36.2 L (37.0-47.0) % MCV 76.2 L (80.0-98.0) fL MCH 26.1 L (27.0-33.0) pg MCHC 34.3 (31.0-35.0) g/dl RDW 14.9 (11.0-16.0) % Plt Count 182 (160-400) X10*3/uL MPV 10.7 (9.4-12.3) fL Immature Gran % (Auto) 0.3 (0.0-0.4) % Neut % (Auto) 80.5 H (45-73) % Lymph % (Auto) 13.2 L (20-40) % Elk % (Auto) 5.3 (2-11) % Eos % (Auto) 0.1 (0-4) % Baso % (Auto) 0.6 (0-2) % Lymph # (Auto) 0.9 L (1.2-4.9) X10*3/uL Elk # (Auto) 0.4 (0.1-1.2) X10*3/uL Eos # (Auto) 0.0 (0.0-0.4) X10*3/uL Baso # (Auto) 0.0 (0.0-0.2) X10*3/uL Abs Immat Gran (auto) 0.02 (0.00-0.03) X10*3/uL Absolute Neuts (auto) 5.5 (2.0-8.3) x10*3/uL Absolute Nucleated RBC 0.000 (0.0-0.012) X10*3/uL Nucleated RBC % (auto) 0.0 (0.0-0.2) /100WBC Sodium 133 L (135-145) mmol/L Potassium 3.3 (3.3-5.1) mmol/L Chloride 105 (96-108) mmol/L Carbon Dioxide 20 L (22-29) mmol/L Anion Gap 11 L (12-20) BUN 11 (9-16) mg/dL Creatinine 0.80 (0.5-1.4) mg/dL Estim Creat Clear Calc 95.7 Estimated GFR > 60 Random Glucose 137 H (60-115) mg/dL Lactic Acid 1.1 (0.5-2.0) mmol/L Calcium 8.8 D (8.4-10.2) mg/dL Total Bilirubin 1.4 H (0.0-1.0) mg/dL AST 45 H (5-31) U/L ALT 55 H (0-31) U/L Alkaline Phosphatase 159 H (39-117) U/L Total Protein 7.5 (6.5-8.0) g/dL Albumin 3.8 (3.5-5.0) g/dL Urine Color Dark Yellow Urine Appearance Cloudy Urine pH 5.5 (5.0-9.0) Ur Specific [place] 1.015 (1.005-1.025) Urine Protein 30 (1+) H (Neg-Trace) mg/dL Urine Glucose (UA) Negative (Negative) mg/dL Urine Ketones 15 (Negative) mg/dL Urine Blood Small (1+) H (Negative) Urine Nitrite Negative (Negative) Ur Leukocyte Esterase Large (3+) H (Negative) Urine RBC 0-2 (0-2) /HPF Urine WBC >50 H (0-5) /HPF Ur Squamous Epith Cells 3-5 (0-2) /HPF Urine Bacteria 4+ (None Seen) Hyaline Casts 6-10 (0-2) /LPF Urine Test NEGATIVE (NEGATIVE) Influenza Type A (PCR) NEGATIVE (Negative) Influenza Type B (PCR) NEGATIVE (Negative) RSV RNA Qual (PCR) NEGATIVE (Negative) SARS-CoV-2 RNA (RT-PCR) NEGATIVE (Negative) S. pyogenes GrpA FAMILIA Negative (Negative) Independent Interpretation I performed an independent interpretation of an: Plain X-Ray Interpretation: My independent interpretation patient's chest x-ray is as follows: No acute disease Radiology Impression Discussion of test interpretation with radiology: I have reviewed the radiologist's reading. Radiologist Impression: 1 view chest x-ray Comparison: CR/SR - XR CHEST 2V - 08/06/22 14:24 EDT Findings: No consolidation or effusion. Heart size is normal. No acute fracture. IMPRESSION: 1. No acute findings. This document has been electronically signed by: Rodrigo Rodriguez MD on 03/30/2024 20:13:42 Prescription Management I considered prescription management with: Pain Medication and Antibiotic Discharge Plan Discharge Clinical Impression: Viral syndrome Acute headache Qualifiers: Intractability: not intractable Urinary tract infection Qualifiers: Urinary tract infection type: acute cystitis Hematuria presence: without hematuria Qualified Code(s): N30.00 - Acute cystitis without hematuria Patient Disposition: Home, Self-Care Additional Instructions: Your symptoms are consistent with a viral infection and a urinary tract infection. Your blood work was unremarkable. Your COVID-19, influenza, RSV and rapid strep tests were all negative. Your urine test is consistent with a urine infection. Take cefuroxime 250 mg pills, 1 pill every 12 hours for 5 days this will treat the urine infection. Stop taking Tylenol and Aleve For your headaches, muscle pains in chills I want you to take the following 3 medications together every 6 hours as needed. Reglan (metoclopramide) 10 mg , 1 pill Benadry (diphenhydramine) 25 mg, 2 pills Excedrin migraine (acetaminophen, aspirin, caffeine), 2 pills. After you take these medications, lie down in a dark quiet room and try to fall asleep. ?These medications will make you sleepy, do not drive or work after taking these medications. Follow-up with your doctor in 2 days. Please return to the emergency department if your symptoms get worse or if you develop any symptoms that are concerning to you. Prescriptions: New cefuroxime axetil 250 mg tablet 250 mg PO Q12H 5 Days Qty: 10 0RF diphenhydramine HCl 25 mg capsule 50 mg PO Q6H PRN (Reason: headache, nausea, vomiting) Qty: 20 0RF Excedrin Extra Strength 250-250-65 mg tablet 2 tab PO Q6H PRN (Reason: headache) Qty: 20 0RF metoclopramide HCl [Reglan] 10 mg tablet 10 mg PO Q6H PRN (Reason: nausea and vomiting) Qty: 14 0RF No Action doxycycline hyclate 100 mg capsule 100 mg PO BID 7 Days Qty: 14 0RF acetaminophen 500 mg tablet 1,000 mg PO QID PRN (Reason: pain) Qty: 30 0RF ibuprofen 600 mg tablet 600 mg PO Q6H PRN (Reason: pain) Qty: 20 0RF tugqdoqicd-bwmpkutaqqvyr-souy [Fioricet] 50-300-40 mg capsule 1 cap PO Q8H PRN (Reason: headache) Qty: 30 0RF Interventions: ED Discharge Assessment Last Done: 03/31/24 01:20 Discharge Date/Time: 03/31/24 01:25 Print Language: Damien Joe
[2024-03-30] MEDS: Ibuprofen 800 MG TABLET PO (19:42)
[2024-03-30 20:13] LABS: MANUAL DIFF FLAG NO
[2024-03-30 20:17] LABS: Basophils Percent Auto 0.6 % (0-2); Eosinophils Percent Auto 0.1 % (0-4); Hematocrit 36.2 % (37.0-47.0); Hemoglobin 12.4 g/dl (12.0-16.0); Imm Gran Abs Auto 0.02 X10*3/uL (0.00-0.03); Imm Gran Pct Auto 0.3 % (0.0-0.4); Lymphocytes Absolute Auto 0.9 X10*3/uL (1.2-4.9); Lymphocytes Percent Auto 13.2 % (20-40); Mean Corpuscular HGB Conc 34.3 g/dl (31.0-35.0); Mean Corpuscular Hemoglobin 26.1 pg (27.0-33.0); Mean Corpuscular Volume 76.2 fL (80.0-98.0); Mean Platelet Volume 10.7 fL (9.4-12.3); Monocytes Absolute Auto 0.4 X10*3/uL (0.1-1.2); Monocytes Percent Auto 5.3 % (2-11); Neutrophils Absolute Auto 5.5 x10*3/uL (2.0-8.3); Neutrophils Percent Auto 80.5 % (45-73); Platelet Count 182 X10*3/uL (160-400); Red Blood Count 4.75 X10*6/uL (4.20-5.50); Red Cell Distribution Width 14.9 % (11.0-16.0); White Blood Count 6.8 X10*3/uL (4.8-10.8)
[2024-03-30 20:22] LABS: IDNOW Serial# 58CA691E; Strep A Nucleic Acid Negative (Negative)
[2024-03-30 20:29] LABS: Lactic Acid 1.1 mmol/L (0.5-2.0)
[2024-03-30 20:30] LABS: Alanine Aminotransferase 55 U/L (0-31); Albumin Level 3.8 g/dL (3.5-5.0); Alkaline Phosphatase 159 U/L (39-117); Anion Gap 11 (12-20); Aspartate Amino Transferase 45 U/L (5-31); Bilirubin Total 1.4 mg/dL (0.0-1.0); Blood Urea Nitrogen 11 mg/dL (9-16); Calcium 8.8 mg/dL (8.4-10.2); Carbon Dioxide 20 mmol/L (22-29); Chloride 105 mmol/L (96-108); Creatinine Clr Calc Pharmacy 95.7; Estimated Glomerular Filt Rate > 60; Glucose Random 137 mg/dL (60-115); Potassium 3.3 mmol/L (3.3-5.1); Sodium 133 mmol/L (135-145); Total Protein 7.5 g/dL (6.5-8.0)
[2024-03-30 20:52] LABS: Influenza A PCR NEGATIVE (Negative); Influenza B PCR NEGATIVE (Negative); Resp Syncy Virus RNA Qual PCR NEGATIVE (Negative); SARS COV2 PCR INHOUSE NEGATIVE (Negative)
[2024-03-30 23:31] VITALS: BP 115/66; PULSE 88; RESP 18; TEMP 36.4; O2SAT 100
--- NOTE | 2024-03-30 23:31 | PC.NURSE ---
Negative work up, vs recheck wnl. PA to triage to eval pt, cleared for dc home.
[2024-03-31 00:02] VITALS: BP 99/56; PULSE 84; RESP 16; TEMP 36.7; O2SAT 99
--- NOTE | 2024-03-31 00:06 | MHC.EDTECH ---
at this time this tech changed over pt into hospital gown and obtained VS. VS were overall stable besides a low BP of 99/56, RN made aware. Call light given for safety
[2024-03-31 00:32] LABS: Appearance Urine Cloudy; Color Urine Dark Yellow; Glucose Urine UA Negative (Negative); Leukocyte Esterase Urine Large (3+) (Negative); Nitrite Urine Negative (Negative); PH 5.5 (5.0-9.0); Specific Gravity - Urine 1.015 (1.005-1.025); UMIC TRIGGER UACC YES; Urine Blood Small (1+) (Negative); Urine Ketones 15 mg/dL (Negative); Urine Protein 30 (1+) mg/dL (Neg-Trace)
[2024-03-31 00:34] LABS: UPreg QC Valid YES; Urine Pregnancy NEGATIVE (NEGATIVE)
[2024-03-31 00:44] LABS: Bacteria Urine 4+ (None Seen); RBC Urine 0-2 /HPF (0-2); UACC Culture Trigger YES; WBC Urine >50 /HPF (0-5)
[2024-03-31] MEDS: Acetaminophen 325 MG TABLET 650 MG PO (01:12)
[2024-03-31] MEDS: cefuroxime axetiL 250 MG TABLET PO (01:12)
[2024-03-31] MEDS: Metoclopramide HCl 10 MG TABLET PO (01:12)
[2024-03-31] MEDS: diphenhydrAMINE HCL 25 MG CAPSULE 50 MG PO (01:13)
[2024-03-31 01:20] VITALS: BP 137/89; PULSE 76; RESP 16; TEMP 36.8; O2SAT 98
== END 2024-03-31 01:25 | disposition home or self-care (01) ==
PROVIDERS: Physician Assistant; Emergency Provider Emergency Medicine Emergency Medical Services; PCP Internal Medicine
DX: B34.9 Viral infection, unspecified (principal); N30.00 Acute cystitis without hematuria; R50.9 Fever, unspecified; R51.9 Headache, unspecified; R30.0 Dysuria; M79.10 Myalgia, unspecified site; R35.0 Frequency of micturition; R53.83 Other fatigue; Z03.818 Encounter for observation for suspected exposure to other biological agents ruled out; Z79.899 Other long term (current) drug therapy
CPT/HCPCS: 0241U; 36415; 71045; 80053; 81001; 81025; 83605; 85025; 87040; 87086; 87088; 87186; 87651; 99283; 99284

== ENCOUNTER → 2024-03-30 19:39 | Outpatient (BNV) | payer OTHER, SELFPAY | PROVIDERS: PCP Internal Medicine; Visit Provider Radiology Diagnostic Radiology | DX: R05.9 Cough, unspecified (principal) | CPT/HCPCS: 71045 ==

== ENCOUNTER 2024-04-02 10:27 | Outpatient (AMB) | payer OTHER, SELFPAY ==
--- NOTE | 2024-04-02 10:31 | A.OFFPC_ITS ---
Vital Signs 04/02/24 10:34 Height 5 ft Weight 205 lb 8 oz BMI 40.1 BP 128/70 Blood Pressure Location Lt brachial Position Sitting Pulse 81 Pulse Source Pulse Oximeter Temp 91.0 F L Temp Source Skin Pulse Oximetry (%) 98 Oxygen Delivery Method Room Air Intake Visit Reasons: Follow-up Sick Visit Intake Note: Patient is here to follow up on sick visit. Symptoms, fever, cough, body aches, chills. Neg covid, flu, rsv. 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: Present (spouse and son) Accompanied by: Spouse Allergies No Known Allergies Allergy (Verified 04/02/24 11:06) Medication List - Last Reconciled 04/02/24 by Jonny Childers MD acetaminophen 1,000 mg (2 x 500 mg) PO QID PRN cdnzsto-zjzmbqwhfylhz-dlmwrmro 250-250-65 mg (Excedrin Extra Strength) 2 tabs PO Q6H PRN vphlcgduqf-iydlrjxlbafit-hyob 50-300-40 mg (Fioricet) 1 cap PO Q8H PRN cefuroxime axetil 250 mg PO Q12H 5 days diphenhydramine HCl 50 mg (2 x 25 mg) PO Q6H PRN ibuprofen 600 mg PO Q6H PRN metoclopramide HCl (Reglan) 10 mg PO Q6H PRN Tobacco use date assessed: 04/02/24 Dental Screening Dental Screen Date: 04/02/24 Did you have a dental visit in the last 12 months?: No Did you have a dental problem in the last 6 months where you did not have access to dental care?: No Was dental information given to patient?: No HPI Follow-up Sick Visit HPI Details Patient comes in today for her HDF follow up visit She presented to the ER a couple of days ago for increased headaches, fever, chills and malaise as well as urinary frequency and dysuria Work ups done in the ER were remarkable for (+) findings of UTI and pyuria on her urinalysis; urine C/S grew (+) pansensitive E. coli Labs were significant for only mildly elevated LFTs and mild hyponatremia; GFR and serum creatinine were normal; CBC was also normal She was started on Cefuroxime 250 mg BID x 5 days for her UTI and on Excedrin migraine for her headaches but patient states that these meds have not helped or made much of a difference so far as she felt the same way she did not compared to a few days ago She would also like to know how her head CT done a few months ago came out and if there were any findings pertinent to her frequent headaches States that she is no longer running any fever or had any chills but still feels fatigued and has generalized malaise She denies any sore throat Denies any chest pains, no increased SOB No nausea/vomiting, no abdominal pain No change in bowel habits noted [facility] Medical History (Updated 04/02/24 @ 11:21 by Jonny Childers MD) Vitamin D deficiency Obesity (BMI 30-39.9) Depression Anxiety Obesity, Class III, BMI 40-49.9 (morbid obesity) Painful urination Pelvic pain Irregular menses Headache Surgical History Hx of section Social History Household Members: Spouse and Children Housing: Apartment Housing Other:: long-term Alcohol intake: never Patient Tobacco Use Status: Never used Tobacco e-Cigarette/Vaping Use: Never Used Second Hand Smoke Exposure: No service: No Current occupational status: unemployed Sexual orientation: Straight/Heterosexual Gender identity: Female Cognitive needs: No Hearing needs: No Vision needs: No Female Reproductive History Menstrual Age of Menarche: 14 Questionnaire PHQ-9 Over the last 2 weeks, how often have you been bothered by any of the following problems? 1. Little interest or pleasure in doing things: not at all 2. Feeling down, depressed, or hopeless: not at all 3. Trouble falling or staying asleep, or sleeping too much: not at all 4. Feeling tired or having little energy: not at all 5. Poor appetite or overeating: not at all 6. Feeling bad about yourself - or that you are a failure or have let yourself or your family down: not at all 7. Trouble concentrating on things, such as reading the newspaper or watching television: not at all 8. Moving or speaking so slowly that other people could have noticed. Or the opposite - being so fidgety or restless that you have been moving around a lot more than usual: not at all 9. Thoughts that you would be better off or of hurting yourself in some way: not at all Total score: 0 Depression Screening Interpretation: Negative Depression Screening Done: Yes 72885 - PHQ-9 Billing: Yes Source: Developed by Drs. Damien Ortega, Emmanuelle Michaud, Trent Chandra and colleagues, with an educational tanika from [employer]. Thrive Questionnaire Date Thrive assessed: 04/02/24 I am a: Patient What is your living situation today?: I have a steady place to live Within the past 12 months, did the food you bought not last and you didn't have the money to get more?: Never true Within the past 12 months, did you worry whether your food would run out before you got money to buy more?: Never true Do you have trouble paying for medicines?: No Do you have trouble getting transportation to medical appointments?: No Do you have trouble paying your heating and electricity bill?: No Do you have trouble taking care of your child, family member or friend?: No Do you have trouble with day-to-day activities such as bathing, preparing meals, shopping, managing finances, etc.?: No Are you currently unemployed and looking for a job?: No Are you interested in more education?: No Please select the resources that you would like help with: None Currently or been in a relationship where the following occur: No concerns reported THRIVE Score: 0 AUDIT C Alcohol Use Questionnaire (AUDIT-C) 1. How often do you have a drink containing alcohol?: Never 2. How many drinks containing alcohol do you have on a typical day when you are drinking?: 1 or 2 (0) 3. How often do you have six or more drinks on one occasion?: Never Total Score: 0 Score Reviewed/Action Taken: Yes JESSA-7 AMB Questionnaire JESSA-7 Date JESSA - 7 assessed: 04/02/24 Feeling nervous, anxious, or on edge: 0 = Not at all Not being able to stop or control worryin = Not at all Worrying too much about different things: 0 = Not at all Trouble relaxin = Not at all Being so restless that it is hard to sit still: 0 = Not at all Becoming easily annoyed or irritable: 0 = Not at all Feeling afraid as if something awful might happen: 0 = Not at all Total JESSA-7 score (0-4 normal; 5-9 mild; 10-14 moderate; 15-21 severe): 0 Source: Developed by Drs. Damien Ortega, Emmanuelle Michaud, Trent Chandra and colleagues, with an educational tanika from [employer]. Review of Systems Const Denies chills, Reports fatigue, Denies fever(s) (just cleared up a day or two ago), Reports headache(s) (recurrent) and Reports malaise Eyes Reports blurry vision (at times when headaches increase), Reports exophthalmos and Denies eye pain ENT Denies dysphagia, Denies dizziness, Denies otalgia, Reports headache(s) (recurrent), Denies nasal congestion, Denies neck pain, Denies odynophagia and Denies sore throat Card Denies chest pain, Denies rapid heart rate, Denies irregular heart rhythm, Denies palpitations and Denies dyspnea Resp Denies chest congestion, Denies cough and Denies dyspnea GI Denies abdominal pain, Reports bloating, Denies constipation, Denies dysphagia, Denies heartburn, Denies diarrhea, Denies nausea, Denies odynophagia and Denies vomiting Denies hematuria, Denies urinary frequency, Reports nocturia, Reports dysuria, Denies urinary incontinence and Reports urinary urgency Musc Denies back pain, Reports myalgias, Denies arthralgias and Denies neck pain Skin/Breast Denies rash Neuro Denies dizziness, Reports headache(s) (recurrent) and Denies paresthesias Psych Reports anxiety and Reports depression Endo Reports fatigue and Denies palpitations Physical exam (Primary Care) Vital Signs: Last Vital Signs Temp 91.0 F L 04/02/24 10:34 Pulse 81 04/02/24 10:34 BP 128/70 04/02/24 10:34 Pulse Ox 98 04/02/24 10:34 Oxygen Delivery Method Room Air 04/02/24 10:34 BMI result Body Mass Index 40.1 Tobacco/Smoking Status: Tobacco use Status Tobacco use date assessed 04/02/24 04/02/24 10:33 Patient Tobacco Use Status Never used Tobacco 04/02/24 10:33 e-Cigarette/Vaping Use Never Used 04/02/24 10:33 PHQ-9: PHQ-9 Score PHQ-9: Total score 0 04/02/24 11:13 Depression Screening Interpretation: Negative Thrive Assessment: Date of Thrive Assessment Date Thrive assessed 04/02/24 04/02/24 10:33 Currently or been in a relationship where the following occur: No concerns reported Const General: no acute distress, alert and tired appearing HENMT Ears: TM's normal bilaterally and EAC's normal Throat: Yes posterior oropharynx normal and Yes tonsils normal (no TP congestion) Neck Neck: Yes supple and No lymphadenopathy Thyroid: Thyroid normal Resp Auscultation: clear to auscultation bilaterally, no rales and no wheezes Cardio Rate: regular rate Rhythm: regular rhythm Heart sounds: no murmurs GI Palpation (GI): Soft to palpation and nontender Auscultation: normal bowel sounds General: Yes no CVA tenderness Back/Spine/Pelvis Back: no CVA tenderness Thoracic/Lumbar Spine: No lumbar spinal tenderness Skin Rashes: no rashes Extrem General: Yes no clubbing, cyanosis or edema Coding Level of Care Code Est Pt Level 4 (34120) Complex EM visit Add On G2211 Diagnoses Chronic nonintractable headache, unspecified headache type R51.9; G89.29 Headache type: unspecified Headache chronicity pattern: chronic headache Intractability: not intractable Urinary tract infection N30.00 Hematuria presence: without hematuria Urinary tract infection type: acute cystitis 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 Vitamin D deficiency E55.9 Anxiety F41.9 Episode of recurrent major depressive disorder, unspecified depression episode severity F33.9 Depression Type: major depressive disorder Major depression recurrence: recurrent Active/Remission status: currently active Major depression episode severity: unspecified Obesity (BMI 30-39.9) E66.9 Additional Codes PHQ-9 - 31393 - PHQ-9 Billing: Yes ([id number]) Assessment & Plan Assessment & Plan (1) Headache: Code(s): R51.9 - Headache, unspecified Category: Medical Qualifiers: Headache type: unspecified Headache chronicity pattern: chronic headache Intractability: not intractable Qualified Code(s): R51.9 - Headache, unspecified; G89.29 - Other chronic pain Plan: Her head CT done in October 2023 came out negative but it did reveal (+) prop tosis bilaterally Have discussed with patient that her headaches are likely migraine headaches but her proptosis may also be contributing to her headaches and this will need to be further evaluated and addressed if necessary She was previously referred to neurology for consultation and she is now scheduled to be seen by them for her initial visit on 04/20/2024 - patient appears to be unaware of this and was surprised about this when I mentioned this appointment Have advised her to reach out to neurology (I provided them with the phone number) to find out where she is supposed to go see them as she does not know where her appointment will take place Will start her for now on Sumatriptan 50 mg PRN as instructed I provided her with Rx for Fioricet at her last visit but it looks like her insurance declined covering the Rx (2) Urinary tract infection: Code(s): N39.0 - Urinary tract infection, site not specified Category: Medical Qualifiers: Hematuria presence: without hematuria Urinary tract infection type: acute cystitis Qualified Code(s): N30.00 - Acute cystitis without hematuria Plan: Her urinalysis done a few days ago grew (+) pansensitive E. 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 Category: Medical Plan: This was seen incidentally on her head CT done in October 2023 and as discussed, can also be contributing to her recurrent headaches Her TSH level came back normal when checked previously, more recently in September 2023 and patient does not have any signs or symptoms that would suggest hyperthyroidism or Grave's disease Will still go ahead and send her for labs JOSE GUADALUPE to check for possible Grave's disease as euthyroid ophthalmic Grave's disease should be ruled out as well Will refer her as well to ophthalmology for further evaluation and management / recommendations She is advised that we will reach out to her if any of her labs come back with any pertinent findings and further recommendations or interventions are necessary (4) Vitamin D deficiency: Code(s): E55.9 - Vitamin D deficiency, unspecified Category: Medical Plan: Continue Vitamin D3 2000 units QD (5) Anxiety: Code(s): F41.9 - Anxiety disorder, unspecified Category: Medical Plan: Follow up with therapist/counselor as scheduled (6) Depression: Code(s): F32.A - Depression, unspecified Category: Medical Qualifiers: Depression Type: major depressive disorder Major depression recurrence: recurrent Active/Remission status: currently active Major depression episode severity: unspecified Qualified Code(s): F33.9 - Major depressive disorder, recurrent, unspecified Plan: Follow up with therapist/psychiatrist as scheduled (7) Obesity (BMI 30-39.9): Code(s): E66.9 - Obesity, unspecified Category: Medical Plan: Reinforced diet/exercise as tolerated/lose weight Plan To return as scheduled in September 2024 for her annual physical examination Orders: Orders Triiodothyronine T3 Total Today E05.00 - Thyrotoxicosis with diffuse goiter without thyrotoxic crisis or storm, H05.20 - Unspecified exophthalmos Triiodothyronine T3 Reverse Today E05.00 - Thyrotoxicosis with diffuse goiter without thyrotoxic crisis or storm, H05.20 - Unspecified exophthalmos Thyroid Peroxidase Antibodies Today E05.00 - Thyrotoxicosis with diffuse goiter without thyrotoxic crisis or storm, H05.20 - Unspecified exophthalmos Free T4 (Free Thyroxine) Today E05.00 - Thyrotoxicosis with diffuse goiter without thyrotoxic crisis or storm, H05.20 - Unspecified exophthalmos Thyroid Stimulating Immunoglob Today E05.00 - Thyrotoxicosis with diffuse goiter without thyrotoxic crisis or storm, H05.20 - Unspecified exophthalmos Thyroid Stimulating Hormone Today E05.00 - Thyrotoxicosis with diffuse goiter without thyrotoxic crisis or storm, H05.20 - Unspecified exophthalmos Referrals Ophthalmology Referral H05.20 - Unspecified exophthalmos Medications: New cefuroxime axetil 500 mg PO BID 7 days 14 tabs 0RF sumatriptan succinate take 1 tab at onset of headache; if no relief may repeat 1 tab after at least 2 hrs; max = 4 tabs/24 hr PO 10 tabs 3RF G43.909 - Migraine, unspecified, not intractable, without status migrainosus
[2024-04-02 10:34] VITALS: BP 128/70; PULSE 81; TEMP 32.8; O2SAT 98; BMI 40.1
== END 2024-04-02 11:31 | disposition home or self-care (01) ==
PROVIDERS: PCP Internal Medicine; Visit Provider Internal Medicine
DX: R51.9 Headache, unspecified (principal); G89.29 Other chronic pain; N30.00 Acute cystitis without hematuria; H05.20 Unspecified exophthalmos; E55.9 Vitamin D deficiency, unspecified; F41.9 Anxiety disorder, unspecified; F33.9 Major depressive disorder, recurrent, unspecified; E66.9 Obesity, unspecified

== ENCOUNTER → 2024-04-02 10:27 | Outpatient (BNVA) | payer OTHER, SELFPAY | PROVIDERS: PCP Internal Medicine; Visit Provider Internal Medicine | DX: R51.9 Headache, unspecified (principal); G89.29 Other chronic pain; N30.00 Acute cystitis without hematuria; F41.9 Anxiety disorder, unspecified; E55.9 Vitamin D deficiency, unspecified; F33.9 Major depressive disorder, recurrent, unspecified; H05.20 Unspecified exophthalmos | CPT/HCPCS: 96127; 99212 ==

== ENCOUNTER 2024-04-20 10:04 | Outpatient (AMB) | payer OTHER, SELFPAY ==
[2024-04-20 10:07] VITALS: BP 118/74; PULSE 78; O2SAT 98; BMI 40.4
--- NOTE | 2024-04-20 10:07 | A.OFFVIS_ITS ---
Vital Signs 04/20/24 10:07 Height 5 ft Weight 207 lb BMI 40.4 BP 118/74 Blood Pressure Location Rt brachial Position Sitting Pulse 78 Pulse Source Pulse Oximeter Pulse Oximetry (%) 98 Oxygen Delivery Method Room Air Intake Visit Reasons: Q-QL-Xrvzkyae, unspecified Automotive Accessory Installer Required: Yes Automotive Accessory Installer Name: Ayaka [id number] Accompanied by: Self / Same As Patient Allergies No Known Allergies Allergy (Verified 04/20/24 10:11) Medication List - Last Reconciled 04/20/24 by ROSANA Clemons rnjxkfs-ruihtsdalrhyn-pkyvtqaq 250-250-65 mg (Excedrin Extra Strength) 2 tabs PO Q6H PRN dkixrfgznf-pbliaywqcsqab-jbii 50-300-40 mg (Fioricet) 1 cap PO Q8H PRN cefuroxime axetil 250 mg PO Q12H 5 days cefuroxime axetil 500 mg PO BID 7 days diphenhydramine HCl 50 mg (2 x 25 mg) PO Q6H PRN ibuprofen 600 mg PO Q6H PRN metoclopramide HCl (Reglan) 10 mg PO Q6H PRN sumatriptan succinate take 1 tab at onset of headache; if no relief may repeat 1 tab after at least 2 hrs; max = 4 tabs/24 hr PO Do you need a note to return to daycare/school/sports/work: No HPI Comments Details: Right-handed 38-yr-old female presents for new pt evaluation of headache disorder. Pt reports she has headache for at least 6 yrs, which started after she had a period of dizziness. The headaches have improved over time, but yesterday she had bilateral eye pain. No known preceding causes. Head CT in Oct 2023 showed proptosis, she had f/u eye exam and had a f/u head CT last week. Last TSH: 1.65 within normal limits. However, pt is unaware of this dx and is sure what the results of her recent eye exam were. PMH and ROS are notable for:? General: Ocular proptosis- patient is unaware when this started HEENT: Bilateral tinnitus Musculoskeletal disorders or injury: Back pain History of concussion/head injury: Denies Mood d/o: Endorsees stress, Respiratory d/o: Denies CV disease: Denies Clotting or hematology d/o: Denies Endocrine or metabolic d/o: Denies History of seizure: . 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 Headache questionnaire:? Age/time of onset: 6 years. Typical headache characteristics: Prodrome symptoms: unsure Aura: may see stars and have blurry vision during the headache Pain intensity: moderate-severe Location, quality, characteristics: One side of head and eye pain and then holocranial squeezing (like the bone marrow will squeeze out of her head) and heavy . Associated symptoms: sometimes red eyes, photophobia, phonophobia, osmophobia, allodynia, used to have nausea, spinning dizziness, lightheadedness, fatigue, cognitive difficulties, activity intolerance. Postdrome: few days Triggers: no known triggers Time of day: No specific time of day Duration and Frequency: She does not count it. It can last 2-3 days. How does headache impact your life? She had Current acute medication use/interventions: Tylenol 1 tab 1-3 x's a day, and Ibuprofen 1 tab. Sumatriptan 50mg which helps- though does cause an altered taste and a sensation of acid reflux. Excedrin- in the past. Current preventative medication use: none Non-pharmacological interventions: Rest [facility] Medical History Vitamin D deficiency Obesity (BMI 30-39.9) Depression Anxiety Obesity, Class III, BMI 40-49.9 (morbid obesity) Painful urination Pelvic pain Irregular menses Headache Surgical History Hx of section Social History Household Members: Spouse and Children Housing: Apartment Housing Other:: jail Alcohol intake: never Patient Tobacco Use Status: Never used Tobacco e-Cigarette/Vaping Use: Never Used Second Hand Smoke Exposure: No service: No Current occupational status: unemployed Sexual orientation: Straight/Heterosexual Gender identity: Female Cognitive needs: No Hearing needs: No Vision needs: No Female Reproductive History Menstrual Age of Menarche: 14 Physical Exam Vital Signs: Last Vital Signs Pulse 78 04/20/24 10:07 BP 118/74 04/20/24 10:07 Pulse Ox 98 04/20/24 10:07 Oxygen Delivery Method Room Air 04/20/24 10:07 BMI result Body Mass Index 40.4 Const Orientation/consciousness: patient oriented x3 Resp Effort & Inspection: normal respiratory effort and able to speak in complete sentences Neuro Other: Right slightly greater than left proptosis Right eye rest slightly higher than left Slight right cheek prominence Photophobic General: patient oriented x3 Cranial nerves: Yes CN's II-XII intact bilaterally Cognition (Neuro): normal cognition Gait exam (Neuro): Normal gait present Motor exam (neuro): 5/5 motor strength present throughout Deep tendon reflexes (DTR's): Right triceps reflex intensity grade: 2+, Left triceps reflex intensity grade: 2+, Rt Biceps (C5, C6): 2+, Left biceps reflex intensity grade: 2+, Right brachioradialis reflex intensity grade: 2+, Left brachioradialis reflex intensity grade: 2+, Right patellar reflex intensity grade: 2+ and Left patellar reflex intensity grade: 2+ Coordination: mnbcei-gh-uqly test normal, tandem gait normal and Romberg test negative Pupils: Normal pupillary reactivity/response: bilateral Psych Appearance: grossly normal Mental Status: mental status grossly normal Speech and movement: Normal speech and movement present Affect: normal affect Attitude: cooperative Thought process: Normal thought process present Results Reviewed Results Reviewed: FINDINGS: No intracranial hemorrhage, extra-axial fluid collection, or midline shift is identified. Paiz-white matter differentiation is preserved. The ventricles are within normal limits. Basal cisterns are within normal limits. Paranasal sinuses are clear. Mastoid air cells and middle ear cavities are clear. No acute calvarial fractures. Bilateral proptosis. CT/CT head/brain wo IV con IMPRESSION: 1. No acute intracranial abnormality. 2. Proptosis. 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 We will obtain recent ophthalmology notes. For overall headache management: * Optimize good self-care, including but not limited to maintaining a healthy diet, adequate fluid intake, adequate sleep, and engaging in regular physical activity. * Track headaches, especially after any treatment regimen changes. [employer] is one of many headache tracking apps. For acute headache treatment: Discussed importance of taking acute medications at the first sign of headache, however stressed importance of avoiding acute medication overuse (especially with combined headache medications). Trial Rizatriptan 10mg tab, 1/2 - 1 tab (5-10mg) at onset of headache, may repeat in 2 hours. Max of 2 tabs (200mg) per 24 hours. May adjunct with OTC Tylenol 650mg every 4 hours, Ibuprofen (liquigel) 600mg every 6 hours, or Naproxen (liquigel) 440mg every 12 hrs as needed. Potential adverse effects of triptans, include but are not limited to nausea, fatigue, chest tightness/tingling (usually passes within a few minutes), medication overuse headaches. Previous acute migraine medication trials: [] Acute migraine medication contraindications: [None at this time] For headache prevention medication: Preventative medications should be taken routinely as prescribed for best effect, it may take several weeks for full effect to take effect. Discontinue sumatriptan due to not well tolerated. Discontinue Fioricet order patient does not believe she has tried this. Trial Topiramate 25 mg daily at bedtime x1 week then increase to 50 mg daily at bedtime. Potential adverse effects of Topiramate, include but are not limited to fatigue, cognitive changes, paresthesias (tingling), vision changes, kidney stones. Previous migraine prevention medication trials: Sumatriptan 50mg helped- though does cause an altered taste and a sensation of acid reflux. Excedrin- in the past. Migraine prevention medication contraindications: None at this time Pt seen in collaboration w/ Dr Kasia Berrios. Pt to follow-up in 3 months or sooner prn. Medications: New rizatriptan max 2 tabs per day or 4 tabs per week 5 - 10 mg (0.5 - 1 x 10 mg) PO Q2H PRN 12 tabs 3RF migraine headache 21 days topiramate 1 tab at bedtime x's 1 week, then 2 tabs orally bedtime; 60 tabs 3RF 30 days Discontinued rbvkdgo-ifvwqtqhkoofk-hakdlztj 250-250-65 mg Discontinued Reason: Doctor's Order 2 tabs PO Q6H PRN 20 tabs 0RF headache fcxygzcnrr-jdnxsszzmwszf-ceti 50-300-40 mg Discontinued Reason: Doctor's Order 1 cap PO Q8H PRN 30 caps 0RF headache sumatriptan succinate Discontinued Reason: Doctor's Order take 1 tab at onset of headache; if no relief may repeat 1 tab after at least 2 hrs; max = 4 tabs/24 hr PO 10 tabs 3RF G43.909 - Migraine, unspecified, not intractable, without status migrainosus Coding Level of Care Code New Pt Level 4 (04752) Diagnoses Migraine G43.909 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
== END 2024-04-20 11:56 | disposition home or self-care (01) ==
PROVIDERS: PCP Internal Medicine; Visit Provider Nurse Practitioner Family
DX: G43.909 Migraine, unspecified, not intractable, without status migrainosus (principal); H05.20 Unspecified exophthalmos
CPT/HCPCS: 99204

== ENCOUNTER → 2024-04-20 10:04 | Outpatient (BNVA) | payer OTHER, SELFPAY | PROVIDERS: PCP Internal Medicine; Visit Provider Nurse Practitioner Family | DX: G43.909 Migraine, unspecified, not intractable, without status migrainosus (principal); H05.20 Unspecified exophthalmos | CPT/HCPCS: 99202 ==

== ENCOUNTER 2024-07-19 11:50 | Outpatient (AMB) | payer OTHER, SELFPAY ==
--- NOTE | 2024-07-19 12:18 | A.OFFVIS_ITS ---
Vital Signs 3 07/19/24 12:19 Height 5 ft Weight 209 lb BMI 40.8 BP 100/68 Pulse 72 Pulse Source Pulse Oximeter Pulse Oximetry (%) 99 Oxygen Delivery Method Room Air Intake Visit Reasons: 3 mnts f/u ok per [facility] Intake Note: Patient presents 3 month follow up for headache's Rubber Goods Assembler Required: Yes Rubber Goods Assembler Services: Rubber Goods Assembler Present Rubber Goods Assembler Name: yessy kandice- via tele video Accompanied by: Self / Same As Patient Allergies No Known Allergies Allergy (Verified 07/19/24 12:23) HPI Comments Details: 38-year-old female presents for follow-up of migraine, proptosis. Patient has had follow-up eye exam w/ [facility]- impression includes bilateral keratoconjunctivitis sicca, meibomian gland dysfunction in all 4 lids, and bilateral proptosis. Patient then underwent CT orbits, which showed bilateral right greater than left proptosis, without clear etiology. PCP has ordered thyroid panel, however patient was unaware of order. Patient states she does have an ophthalmology follow-up appointment scheduled. Patient reports she is not having headaches has severely or frequently as before. She states she is taking topiramate 25 mg q.h.s. which is helpful. She believe she is using rizatriptan as needed, which helps some. 04/20/2024, initial HPI: Right-handed 38-yr-old female presents for new pt evaluation of headache disorder. Pt reports she has headache for at least 6 yrs, which started after she had a period of dizziness. The headaches have improved over time, but yesterday she had bilateral eye pain. No known preceding causes. Head CT in Oct 2023 showed proptosis, she had f/u eye exam and had a f/u head CT last week. Last TSH: 1.65 within normal limits. However, pt is unaware of this dx and is sure what the results of her recent eye exam were. PMH and ROS are notable for:? General: Ocular proptosis- patient is unaware when this started HEENT: Bilateral tinnitus Musculoskeletal disorders or injury: Back pain History of concussion/head injury: Denies Mood d/o: Endorsees stress, Respiratory d/o: Denies CV disease: Denies Clotting or hematology d/o: Denies Endocrine or metabolic d/o: Denies History of seizure: . 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 Headache questionnaire:? Age/time of onset: 6 years. Typical headache characteristics: Prodrome symptoms: unsure Aura: may see stars and have blurry vision during the headache Pain intensity: moderate-severe Location, quality, characteristics: One side of head and eye pain and then holocranial squeezing (like the bone marrow will squeeze out of her head) and heavy . Associated symptoms: sometimes red eyes, photophobia, phonophobia, osmophobia, allodynia, used to have nausea, spinning dizziness, lightheadedness, fatigue, cognitive difficulties, activity intolerance. Postdrome: few days Triggers: no known triggers Time of day: No specific time of day Duration and Frequency: She does not count it. It can last 2-3 days. How does headache impact your life? She had Current acute medication use/interventions: Tylenol 1 tab 1-3 x's a day, and Ibuprofen 1 tab. Sumatriptan 50mg which helps- though does cause an altered taste and a sensation of acid reflux. Excedrin- in the past. Current preventative medication use: none Non-pharmacological interventions: Rest [facility] Medical History Vitamin D deficiency Obesity (BMI 30-39.9) Depression Anxiety Obesity, Class III, BMI 40-49.9 (morbid obesity) Painful urination Pelvic pain Irregular menses Headache Surgical History Hx of section Social History Household Members: Spouse and Children Housing: Apartment Housing Other:: [facility] Alcohol intake: never Patient Tobacco Use Status: Never used Tobacco e-Cigarette/Vaping Use: Never Used Second Hand Smoke Exposure: No service: No Current occupational status: unemployed Sexual orientation: Straight/Heterosexual Gender identity: Female Cognitive needs: No Hearing needs: No Vision needs: No Female Reproductive History Menstrual Age of Menarche: 14 Physical Exam Vital Signs: Last Vital Signs Pulse 72 07/19/24 12:19 BP 100/68 07/19/24 12:19 Pulse Ox 99 07/19/24 12:19 Oxygen Delivery Method Room Air 07/19/24 12:19 BMI result Body Mass Index 40.8 Const Orientation/consciousness: patient oriented x3 Resp Effort & Inspection: normal respiratory effort and able to speak in complete sentences Neuro Other: Right slightly greater than left proptosis Right eye rest slightly higher than left Slight right cheek prominence Not photophobic today General: patient oriented x3 Cognition (Neuro): normal cognition Gait exam (Neuro): Normal gait present Motor exam (neuro): 5/5 motor strength present throughout Psych Appearance: grossly normal Mental Status: mental status grossly normal Speech and movement: Normal speech and movement present Affect: normal affect Results Reviewed Results Reviewed: Assessment & Plan Assessment & Plan (1) Migraine: Code(s): G43.909 - Migraine, unspecified, not intractable, without status migrainosus Category: Medical Qualifiers: Migraine type: migraine (< 15 days per month) with aura Status migrainosus presence: without status migrainosus Intractability: not intractable Qualified Code(s): G43.109 - Migraine with aura, not intractable, without status migrainosus (2) 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 Code(s): H05.20 - Unspecified exophthalmos Category: Medical Plan For bilateral right greater than left proptosis: Reviewed interval CT orbits and ophthalmology notes, patient advised to follow- up with ophthalmology as scheduled, complete thyroid workup per PCP. Advised that thyroid labs do need to be shared with her supervisory examiner. Check additional labs to round out workup. For overall headache management: * Optimize good self-care, including but not limited to maintaining a healthy diet, adequate fluid intake, adequate sleep, and engaging in regular physical activity. * Track headaches, especially after any treatment regimen changes. Migraine [employer] is one of many headache tracking apps. For acute headache treatment: Continue Rizatriptan 10mg tab, 1/2 - 1 tab (5-10mg) at onset of headache, may repeat in 2 hours. Max of 2 tabs (200mg) per 24 hours. May adjunct with Ibuprofen 600mg every 6 hours as needed. Potential adverse effects of triptans, include but are not limited to nausea, fatigue, chest tightness/tingling (usually passes within a few minutes), medication overuse headaches. Previous acute migraine medication trials: Sumatriptan- not tolerated. Acute migraine medication contraindications: None at this time For headache prevention medication: Continue Topiramate 25 mg daily at bedtime. Previous migraine prevention medication trials: Sumatriptan 50mg helped- though does cause an altered taste and a sensation of acid reflux. Excedrin- in the past. Migraine prevention medication contraindications: None at this time Will follow-up upon review of above and patient to follow-up in clinic in 6 months or sooner prn. Orders: Orders 2 Complete Blood Count Auto Diff Today E66.9 - Obesity, unspecified, F41.9 - Anxiety disorder, unspecified, G89.29 - Other chronic pain, H05.20 - Unspecified exophthalmos, R51.9 - Headache, unspecified Comprehensive Met. Panel Today E66.9 - Obesity, unspecified, F41.9 - Anxiety disorder, unspecified, G89.29 - Other chronic pain, H05.20 - Unspecified exophthalmos, R51.9 - Headache, unspecified Erythrocyte Sedimentation Rate Today E66.9 - Obesity, unspecified, F41.9 - Anxiety disorder, unspecified, G89.29 - Other chronic pain, H05.20 - Unspecified exophthalmos, R51.9 - Headache, unspecified C Reactive Protein Today E66.9 - Obesity, unspecified, F41.9 - Anxiety disorder, unspecified, G89.29 - Other chronic pain, H05.20 - Unspecified exophthalmos, R51.9 - Headache, unspecified Medications: Changed 2 From ibuprofen 600 mg PO Q6H PRN 20 tabs 0RF pain To ibuprofen may take w/ Rizatriptan 600 mg PO Q6H 30 days PRN 60 tabs 3RF pain or migraine From rizatriptan max 2 tabs per day or 4 tabs per week 5 - 10 mg (0.5 - 1 x 10 mg) PO Q2H 21 days PRN 12 tabs 3RF migraine headache To rizatriptan max 2 tabs per day or 4 tabs per week 5 - 10 mg (0.5 - 1 x 10 mg) PO Q2H 30 days PRN 12 tabs 6RF migraine headache From topiramate 1 tab at bedtime x's 1 week, then 2 tabs orally bedtime; 30 days 60 tabs 3RF To topiramate 25 mg PO BEDTIME 30 days 30 tabs 6RF Discontinued 2 cefuroxime axetil Discontinued Reason: Patient Completed Course 250 mg PO Q12H 5 days 10 tabs 0RF cefuroxime axetil Discontinued Reason: Patient Completed Course 500 mg PO BID 7 days 14 tabs 0RF Coding Level of Care Code Est Pt Level 4 (17184) Diagnoses Migraine with aura and without status migrainosus, not intractable G43.109 Migraine type: migraine (< 15 days per month) with aura Status migrainosus presence: without status migrainosus Intractability: not intractable 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
[2024-07-19 12:19] VITALS: BP 100/68; PULSE 72; O2SAT 99; BMI 40.8
== END 2024-07-19 12:55 | disposition home or self-care (01) ==
LOC: HO.HSMS 11:50
PROVIDERS: PCP Internal Medicine; Visit Provider Nurse Practitioner Family
DX: G43.109 Migraine with aura, not intractable, without status migrainosus (principal); H05.20 Unspecified exophthalmos
CPT/HCPCS: 99214

== ENCOUNTER → 2024-07-19 11:50 | Outpatient (BNVA) | payer OTHER, SELFPAY | PROVIDERS: PCP Internal Medicine; Visit Provider Nurse Practitioner Family | DX: G43.109 Migraine with aura, not intractable, without status migrainosus (principal); G89.29 Other chronic pain; H05.20 Unspecified exophthalmos; E66.9 Obesity, unspecified; F41.9 Anxiety disorder, unspecified | CPT/HCPCS: 99212 ==

== ENCOUNTER 2024-08-31 08:24 | Outpatient (AMB) | payer OTHER, SELFPAY ==
--- NOTE | 2024-08-31 08:25 | MHC.OFFVIS ---
Vital Signs 08/31/24 08:37 Height 5 ft Weight 209 lb BMI 40.8 Intake Visit Reasons: Pelvic pain/need 45 minutes/damien creole Seo Professional Required: Yes Seo Professional Language: Damien Joe Seo Professional Name: [id number] Information Interpreted: non-clinical & clinical Power Distributor: Power Distributor Present (Chanelle) Allergies No Known Allergies Allergy (Verified 08/31/24 08:36) Is last menstrual period known: Yes Last menstrual period: 07/19/24 HPI Comments Details: Patient is here today due to pelvic cramping x 1 month. She denies any vaginal discharge or odors. No bleeding since July 19, history of irregular cycles. Uses condoms sporadically. [facility] Medical History Vitamin D deficiency Obesity (BMI 30-39.9) Depression Anxiety Obesity, Class III, BMI 40-49.9 (morbid obesity) Painful urination Pelvic pain Irregular menses Headache Surgical History Hx of section Social History Household Members: Spouse and Children Housing: Apartment Housing Other:: snf Alcohol intake: never Patient Tobacco Use Status: Never used Tobacco e-Cigarette/Vaping Use: Never Used Second Hand Smoke Exposure: No service: No Current occupational status: unemployed Sexual orientation: Straight/Heterosexual Gender identity: Female Cognitive needs: No Hearing needs: No Vision needs: No Female Reproductive History Menstrual Age of Menarche: 14 Date of last menstrual period: 07/19/24 control method: natural family planning and condoms Review of Systems Const All systems reviewed & are unremarkable except as noted in HPI and below Physical Exam Vital Signs: BMI result Body Mass Index 40.8 Const General: cooperative, healthy appearing and no acute distress Orientation/consciousness: patient oriented x3 GI Inspection: Yes normal to inspection Palpation (GI): Soft to palpation and Other GI palpation findings present (Nontender) Rectal Exam - Female: visual inspection normal General: Yes bladder normal to palpation External Female Exam: normal appearance of the urethra Speculum Exam - Vagina: normal appearance of the vagina, normal palpation and normal vaginal discharge Speculum Exam - Cervix: normal appearance of the cervix and normal palpation Bimanual exam- vagina & uterus: normal bimanual exam, normal palpation, uterine size normal, bladder normal to palpation, normal palpation, uterine shape normal, non-tender and enlarged Bimanual Exam- Adnexa, other: normal adnexae Neuro General: patient oriented x3 Results AMB Test Urine AMB Test Urine Positive Last Edit by CHARLEY Garcia on 08/31/24 08:58 AMB Urinalysis, Automated UA Leukoctes 0.5 Ritesh/uL Last Edit by Juana Hill Álvaro on 08/31/24 08:58 UA Nitrite Negative Last Edit by Juana Hill [facility] on 08/31/24 08:58 UA Urobilinogen 0 mg/dL Last Edit by Juana Hill [facility] on 08/31/24 08:58 UA Protein 0 mg/dL Last Edit by Juana Hill [facility] on 08/31/24 08:58 UA pH 6.0 Last Edit by Juana Hill [facility] on 08/31/24 08:58 UA Blood 0 Teodoro/uL Last Edit by Juana Hill [facility] on 08/31/24 08:58 UA Specific [place] 1.015 Last Edit by Juana Hill [facility] on 08/31/24 08:58 UA Ketone Negative Last Edit by Juana Hill Álvaro on 08/31/24 08:58 UA Bilirubin 0 mg/dL Last Edit by Juana Hill [facility] on 08/31/24 08:58 UA Glucose 0 mg/dL Last Edit by Juana Hill [facility] on 08/31/24 08:58 Results Reviewed Results Reviewed: Laboratory Last Values Urine pH (Auto) 6.0 08/31/24 08:51 Specific [place] (Auto) 1.015 08/31/24 08:51 Urine Protein (Auto) 0 mg/dL 08/31/24 08:51 Glucose (UA)(Auto) 0 mg/dL 08/31/24 08:51 Urine Ketones (Auto) Negative 08/31/24 08:51 Urine Blood (Auto) 0 Teodoro/uL 08/31/24 08:51 Urine Nitrite (Auto) Negative 08/31/24 08:51 Urine Bilirubin (Auto) 0 mg/dL 08/31/24 08:51 Urine Urobilinogen (Auto) 0 mg/dL 08/31/24 08:51 Leukocyte Esterase (Auto) 0.5 Ritesh/uL 08/31/24 08:51 Tst Clinic Positive 08/31/24 08:51 Assessment & Plan Assessment & Plan (1) Pelvic pain: Code(s): R10.2 - Pelvic and perineal pain Category: Medical Plan: GC chlamydia and BV panel obtained. UPT is positive today. Urine dip is negative. (2) Early stage of : Code(s): Z34.90 - Encounter for supervision of normal , unspecified, unspecified trimester Category: Medical Plan Plan beta HCG today and repeat in 48 hours if needed, urgent ultrasound order placed. Pelvic warnings reviewed to call if there is any pelvic pain changes or increases, or any vaginal bleeding. Follow up pending ultrasound results. Rx for is a sent in. Advised not to take Topamax during . And change from ibuprofen 2 Tylenol for headache relief. To check with her neuro provider regarding sumatriptan use in . Patient's plan is to talk to regarding diagnosis today before any decision making for options or completed. Orders: Orders AMB HCG Urine Test Today R10.2 - Pelvic and perineal pain AMB Urinalysis Automated Today R10.2 - Pelvic and perineal pain HCG Quantitative 2 Days R10.2 - Pelvic and perineal pain, Z34.90 - Encounter for supervision of normal , unspecified, unspecified trimester Bacterial Vaginosis Panel Today R10.2 - Pelvic and perineal pain CT NG by PCR Today R10.2 - Pelvic and perineal pain US OB limited Today R10.2 - Pelvic and perineal pain, Z34.90 - Encounter for supervision of normal , unspecified, unspecified trimester HCG Quantitative Today O20.0 - Threatened Medications: New PNV,calcium 11-gdsm-axpvd acid 27 mg iron- 1 mg ( Vitamins Plus Low Iron) 1 tab PO DAILY 90 tabs 4RF Coding Level of Care Code Est Pt Level 3 (65018) Diagnoses Pelvic pain R10.2 Early stage of Z34.90
[2024-08-31 08:37] VITALS: BMI 40.8
== END 2024-08-31 09:46 | disposition home or self-care (01) ==
LOC: HO.HWS 08:24
PROVIDERS: PCP Internal Medicine; Visit Provider Advanced Practice Midwife
DX: R10.2 Pelvic and perineal pain (principal); Z34.90 Encounter for supervision of normal pregnancy, unspecified, unspecified trimester
CPT/HCPCS: 99213

== ENCOUNTER 2024-08-31 08:24 | Outpatient (REF) | payer OTHER, SELFPAY ==
[2024-08-31 16:25] LABS: Bacterial Vaginosis PCR NEGATIVE (Negative); Candida Group PCR NOT DETECTED (Not Detect); Candida glab krusei PCR NOT DETECTED (Not Detect); Trichomonas vaginalis PCR NOT DETECTED (Not Detect)
[2024-08-31 16:58] LABS: CT PCR NOT DETECTED (Not Detect.); NG PCR NOT DETECTED (Not Detect.)
== END 2024-08-31 08:25 | disposition home or self-care (01) ==
LOC: HO.LAB 08:24
PROVIDERS: PCP Internal Medicine; Visit Provider Advanced Practice Midwife
DX: O20.0 Threatened abortion (principal); R10.2 Pelvic and perineal pain
CPT/HCPCS: 36415; 81003; 81025; 81515; 84702; 87491; 87591; 99212

== ENCOUNTER 2024-08-31 08:51 | Outpatient (REF) | payer OTHER, SELFPAY | END 2024-08-31 08:52 | disposition home or self-care (01) | LOC: HO.LNP 08:51 | PROVIDERS: Visit Provider Advanced Practice Midwife | DX: Z13.89 Encounter for screening for other disorder (principal) ==

== ENCOUNTER 2024-09-01 11:35 | Outpatient (REF) | payer OTHER, SELFPAY ==
--- NOTE | ~2024-09-01 | US_ITS ---
EXAMINATION: US OBSTETRICAL ULTRASOUND CLINICAL INFORMATION: Pelvic pain, positive beta hCG COMPARISON: August 06, 2023 LMP: 07/19/2024. Gestational age by maternal dates is 6 weeks 2 days. Estimated date of delivery by maternal dates is April 25, 2025 FINDINGS: There is a single intrauterine gestational sac with visible yolk sac, embryo/fetus, and cardiac activity and a double decidua sign. There is heterogeneity cephalad and caudal to the sac. HR: 116 beats per minute. CRL (crown rump length): 0.65 cm (7 weeks 1 day by size ILSA (estimated date of delivery): 04/19/2025 MATERNAL ADNEXA: The right maternal ovary measures 2.7 x 1.8 x 2.3 cm. The left maternal ovary measures 3.6 x 2.3 x 2.6 cm. There is a 2.6 cm anechoic cyst with a thin wall. There is no significant maternal adnexal mass. No maternal pelvic ascites. US/US OB limited IMPRESSION: Single living intrauterine gestation. Size and dates are concordant with estimated gestational age 6 weeks 2 days and estimated date of delivery April 25, 2025. Minimal subchorionic hemorrhage. Electronically signed by: Lew Chamberlain MD 09/01/2024 01:08 PM EDT
== END 2024-09-01 11:36 | disposition home or self-care (01) ==
LOC: HO.US 11:35
PROVIDERS: PCP Internal Medicine; Visit Provider Advanced Practice Midwife
DX: Z34.90 Encounter for supervision of normal pregnancy, unspecified, unspecified trimester (principal); R10.2 Pelvic and perineal pain
CPT/HCPCS: 76815

== ENCOUNTER → 2024-09-01 11:39 | Outpatient (BNV) | payer OTHER, SELFPAY | PROVIDERS: PCP Internal Medicine; Visit Provider Radiology Diagnostic Radiology | DX: O99.211 Obesity complicating pregnancy, first trimester (principal); R10.2 Pelvic and perineal pain; Z3A.01 Less than 8 weeks gestation of pregnancy | CPT/HCPCS: 76815 ==

== ENCOUNTER 2024-09-07 08:49 | Outpatient (AMB) | payer OTHER, SELFPAY ==
--- NOTE | 2024-09-07 08:54 | A.OFFVIS_ITS ---
Intake Visit Reasons: US follow up per Ngoc Call/Carmelo mins/Creole Angle Shear Set Up Operator Required: Yes Angle Shear Set Up Operator Language: Damien Joe Angle Shear Set Up Operator Name: Lauren Smith Information Interpreted: non-clinical & clinical Hr Systems Analyst: Hr Systems Analyst Present Allergies No Known Allergies Allergy (Verified 09/07/24 08:55) Is last menstrual period known: Yes HPI Comments Details: Patient is here today for a follow up OB ultrasound, history of unplanned . EDC by ultrasound is April 25 2025, approximately 7 weeks gestation. History of prior . History of class III obesity. [facility] Medical History (Updated 09/07/24 @ 09:42 by Ngoc Pitts CNM) Confirm cardiac activity, ultrasound Encounter for supervision of other normal , first trimester Vitamin D deficiency Obesity (BMI 30-39.9) Depression Anxiety Obesity, Class III, BMI 40-49.9 (morbid obesity) Painful urination Pelvic pain Irregular menses Headache Surgical History Hx of section Social History Household Members: Spouse and Children Housing: Apartment Housing Other:: [facility] Alcohol intake: never Patient Tobacco Use Status: Never used Tobacco e-Cigarette/Vaping Use: Never Used Second Hand Smoke Exposure: No service: No Current occupational status: unemployed Sexual orientation: Straight/Heterosexual Gender identity: Female Cognitive needs: No Hearing needs: No Vision needs: No Female Reproductive History Menstrual Age of Menarche: 14 Review of Systems Const All systems reviewed & are unremarkable except as noted in HPI and below Endo Reports no additional complaints Physical Exam Const General: cooperative, healthy appearing and no acute distress Psych Appearance: well kempt Attitude: cooperative Thought process: Normal thought process present Results Reviewed Results Reviewed: [address] [address] Ultrasound Report Signed Patient: Nimisha Rose MR#: [id number] : 1985 Acct:[id number] Age/Sex: 38 / F ADM Date: 09/01/24 Loc: HO.US Attending Dr: Ngoc Pitts CNM Ordering Physician: Ngoc Pitts CNM Date of Service: 09/01/24 Procedure(s): US OB limited Accession Number(s): [id number] cc: Jonny Childers MD; Ngoc Pitts CNM~ EXAMINATION: US OBSTETRICAL ULTRASOUND CLINICAL INFORMATION: Pelvic pain, positive beta hCG COMPARISON: August 06, 2023 LMP: 07/19/2024. Gestational age by maternal dates is 6 weeks 2 days. Estimated date of delivery by maternal dates is April 25, 2025 FINDINGS: There is a single intrauterine gestational sac with visible yolk sac, embryo/fetus, and cardiac activity and a double decidua sign. There is heterogeneity cephalad and caudal to the sac. HR: 116 beats per minute. CRL (crown rump length): 0.65 cm (7 weeks 1 day by size ILSA (estimated date of delivery): 04/19/2025 MATERNAL ADNEXA: The right maternal ovary measures 2.7 x 1.8 x 2.3 cm. The left maternal ovary measures 3.6 x 2.3 x 2.6 cm. There is a 2.6 cm anechoic cyst with a thin wall. There is no significant maternal adnexal mass. No maternal pelvic ascites. US/US OB limited IMPRESSION: Single living intrauterine gestation. Size and dates are concordant with estimated gestational age 6 weeks 2 days and estimated date of delivery April 25, 2025. Minimal subchorionic hemorrhage. Electronically signed by: Lew Chamberlain MD 09/01/2024 01:08 PM EDT Dictated By: Lew Chamberlain MD Signed By: <Electronically signed by Lew Chamberlain MD in OV> 09/01/24 1308 DD/ 1150 TD/TT: 09/01/24 1232 Drill Punch Operator: Assessment & Plan Assessment & Plan (1) Encounter for supervision of other normal , first trimester: Code(s): Z34.81 - Encounter for supervision of other normal , first trimester Category: Medical (2) Confirm cardiac activity, ultrasound: Code(s): Z36.89 - Encounter for other specified screening Category: Medical Plan: Plan 1 week follow up to check heart rate and progression of . Report any concerns to the office follow up pending results. Plan Discussed ultrasound findings, ILSA confirmation. Patient wants to continue with . Plan repeat ultrasound 1 week check heart rate and development. Advised due to high-risk, history of prior its recommend her care to be at [facility]. Referral placed. Encouraged to stay indoors and hydrate well during intense heat wave. Advised to call the office with any OB concerns including nausea vomiting, abdominal pain, vaginal bleeding. Continue eating a healthy well-balanced diet and take her vitamins daily. The patient expressed understanding and agreement with the plan of care. All of her questions and concerns were addressed to the best of my ability. This note is constructed using voice recognition software. While every effort has been made to ensure accuracy, machine feeder floorperson errors may have been included. Orders: Orders US OB limited 1 Week Z36.89 - Encounter for other specified screening Referrals PHONE BANKER Referral Z34.81 - Encounter for supervision of other normal , first trimester, Z34.90 - Encounter for supervision of normal , unspecified, unspecified trimester Coding Level of Care Code Est Pt Level 3 (33534) Diagnoses Encounter for supervision of other normal , first trimester Z34.81 Confirm cardiac activity, ultrasound Z36.89
== END 2024-09-08 07:15 | disposition home or self-care (01) ==
LOC: HO.HWS 08:49
PROVIDERS: PCP Internal Medicine; Visit Provider Advanced Practice Midwife
DX: Z34.81 Encounter for supervision of other normal pregnancy, first trimester (principal); Z36.89 Encounter for other specified antenatal screening
CPT/HCPCS: 99213

== ENCOUNTER → 2024-09-07 08:49 | Outpatient (BNVA) | payer OTHER, SELFPAY | PROVIDERS: PCP Internal Medicine; Visit Provider Advanced Practice Midwife | DX: Z34.81 Encounter for supervision of other normal pregnancy, first trimester (principal) | CPT/HCPCS: 99212 ==

== ENCOUNTER 2024-09-13 10:39 | Outpatient (REF) | payer OTHER, SELFPAY ==
--- NOTE | ~2024-09-13 | US_ITS ---
EXAMINATION: US FIRST TRIMESTER OB HISTORY: Z36.89 - Encounter for other specified screening TECHNIQUE: Endovaginal scanning was performed. COMPARISON: Comparison is made with the prior examination dated 09/01/2024. FINDINGS: There is a single, live intrauterine . The mean crown-rump length is 1.86 cm, corresponding to an estimated gestational age of 8 weeks and 3 days. There has been appropriate interval growth since the prior study. cardiac activity is identified with a heart rate of 147 bpm. Right ovary: The right ovary measures 2.7 x 1.5 x 2.0 cm and is unremarkable. Left ovary: The left ovary measures 4.1 x 2.0 x 2.0 cm and demonstrates a 2.1 x 2.2 x 1.4 cm cyst. Cul-de-sac: No free fluid US/US OB limited IMPRESSION: Single, live intrauterine of estimated gestational age 8 weeks, 3 days. There has been appropriate interval growth since the prior study. Electronically signed by: Damien Diaz MD 09/13/2024 11:22 AM EDT
== END 2024-09-13 10:40 | disposition home or self-care (01) ==
LOC: HO.HMGCX 10:39
PROVIDERS: PCP Internal Medicine; Visit Provider Advanced Practice Midwife
DX: Z36.89 Encounter for other specified antenatal screening (principal); Z34.91 Encounter for supervision of normal pregnancy, unspecified, first trimester; Z3A.08 8 weeks gestation of pregnancy
CPT/HCPCS: 76815

== ENCOUNTER → 2024-09-13 10:48 | Outpatient (BNV) | payer OTHER, SELFPAY | PROVIDERS: PCP Internal Medicine; Visit Provider Radiology Diagnostic Radiology | DX: Z3A.08 8 weeks gestation of pregnancy (principal) | CPT/HCPCS: 76815 ==

== ENCOUNTER 2024-10-11 16:34 | Outpatient (AMB) | payer OTHER, SELFPAY ==
--- NOTE | 2024-10-11 16:46 | MHC.PC.OV ---
Vital Signs 10/11/24 16:47 Height 5 ft Weight 204 lb 4 oz BMI 39.9 BP 116/60 Blood Pressure Location Lt brachial Position Sitting Pulse 66 Pulse Source Pulse Oximeter Temp 97.8 F Temp Source Temporal Artery Scan Pulse Oximetry (%) 99 Oxygen Delivery Method Room Air Intake Visit Reasons: PHYSICAL Maintenance Construction Helper Required: Yes Maintenance Construction Helper Language: Damien Joe Maintenance Construction Helper Name: Dawn Wyatt [id number] Information Interpreted: non-clinical & clinical Security Installation Sales Technician: Not Required per policy Accompanied by: Spouse Is last menstrual period known: Yes Last menstrual period: 07/19/24 Patient : Yes Allergies No Known Allergies Allergy (Verified 10/11/24 17:01) Medication List - Last Reconciled 10/12/24 by Jonny Childers MD diphenhydramine HCl 50 mg (2 x 25 mg) PO Q6H PRN ibuprofen 600 mg PO Q6H PRN 30 days metoclopramide HCl (Reglan) 10 mg PO Q6H PRN PNV,calcium [id number] acid 27 mg iron- 1 mg ( Vitamins Plus Low Iron) 1 tab PO DAILY rizatriptan 5 - 10 mg (0.5 - 1 x 10 mg) PO Q2H PRN 30 days Tobacco use date assessed: 04/02/24 Dental Screening Dental Screen Date: 10/11/24 Did you have a dental visit in the last 12 months?: No Did you have a dental problem in the last 6 months where you did not have access to dental care?: No Was dental information given to patient?: No HPI PHYSICAL HPI Details Patient comes in today for her annual physical examination She is currently with her 3rd child LMP was on 07/19/2024 and her EDC by maternal date is on 04/18/2025 and by ultrasound is on 04/19/2025 She has already been seen for her visit recently Patient reports (+) fatigue but states that she feels okay She denies any headaches or dizziness Denies any chest pains, no increased SOB No nausea/vomiting, no abdominal pain No change in bowel habits noted She denies any acute urinary symptoms PFSH Medical History Confirm cardiac activity, ultrasound Encounter for supervision of other normal , first trimester Vitamin D deficiency Obesity (BMI 30-39.9) Depression Anxiety Obesity, Class III, BMI 40-49.9 (morbid obesity) Painful urination Pelvic pain Irregular menses Headache Surgical History Hx of section Social History Household Members: Spouse and Children Housing: Apartment Housing Other:: custodial Alcohol intake: never Patient Tobacco Use Status: Never used Tobacco e-Cigarette/Vaping Use: Never Used Second Hand Smoke Exposure: No service: No Current occupational status: unemployed Sexual orientation: Straight/Heterosexual Gender identity: Female Cognitive needs: No Hearing needs: No Vision needs: No Female Reproductive History Menstrual Age of Menarche: 14 Date of last menstrual period: 07/19/24 Questionnaire PHQ-9 Over the last 2 weeks, how often have you been bothered by any of the following problems? 1. Little interest or pleasure in doing things: not at all 2. Feeling down, depressed, or hopeless: not at all 3. Trouble falling or staying asleep, or sleeping too much: not at all 4. Feeling tired or having little energy: more than half the days 5. Poor appetite or overeating: not at all 6. Feeling bad about yourself - or that you are a failure or have let yourself or your family down: not at all 7. Trouble concentrating on things, such as reading the newspaper or watching television: not at all 8. Moving or speaking so slowly that other people could have noticed. Or the opposite - being so fidgety or restless that you have been moving around a lot more than usual: nearly every day 9. Thoughts that you would be better off or of hurting yourself in some way: not at all Total score: 5 Depression Screening Interpretation: Positive Depression Screening Follow-up: Follow-up Visit Requested Depression Screening Done: Yes 11132 - PHQ-9 Billing: Yes Source: Developed by Drs. Damien Ortega, Emmanuelle Michaud, Trent Chandra and colleagues, with an educational tanika from [employer]. Thrive Questionnaire Date Thrive assessed: 10/11/24 I am a: Patient What is your living situation today?: I have a steady place to live Within the past 12 months, did the food you bought not last and you didn't have the money to get more?: Sometimes True Within the past 12 months, did you worry whether your food would run out before you got money to buy more?: Never true Do you have trouble paying for medicines?: No Do you have trouble getting transportation to medical appointments?: No Do you have trouble paying your heating and electricity bill?: No Do you have trouble taking care of your child, family member or friend?: No Do you have trouble with day-to-day activities such as bathing, preparing meals, shopping, managing finances, etc.?: No Are you currently unemployed and looking for a job?: No Are you interested in more education?: Yes Please select the resources that you would like help with: Education Currently or been in a relationship where the following occur: No concerns reported THRIVE Score: 1 AUDIT C Alcohol Use Questionnaire (AUDIT-C) 1. How often do you have a drink containing alcohol?: Never Total Score: 0 Score Reviewed/Action Taken: Yes JESSA-7 AMB Questionnaire JESSA-7 Date JESSA - 7 assessed: 10/11/24 Feeling nervous, anxious, or on edge: 2 = More than half the days Not being able to stop or control worryin = More than half the days Worrying too much about different things: 2 = More than half the days Trouble relaxin = Not at all Being so restless that it is hard to sit still: 0 = Not at all Becoming easily annoyed or irritable: 2 = More than half the days Feeling afraid as if something awful might happen: 2 = More than half the days Total JESSA-7 score (0-4 normal; 5-9 mild; 10-14 moderate; 15-21 severe): 10 Source: Developed by Drs. Damien Ortega, Emmanuelle Michaud, Trent Chandra and colleagues, with an educational tanika from [employer]. JESSA-7 Assessment Billing JESSA-7 Assessment Tool: JESSA-7 Assessment 23548 Review of Systems Const Denies chills, Denies fatigue, Denies fever(s), Denies headache(s) and Denies malaise Eyes Denies blurry vision, Denies change in vision, Denies irritation and Denies itchy eyes ENT Denies dysphagia, Denies dizziness, Denies otalgia, Denies headache(s), Denies nasal congestion, Denies neck pain, Denies odynophagia, Denies sinus pain and Denies sore throat Card Denies chest pain, Denies rapid heart rate, Denies irregular heart rhythm, Denies palpitations and Denies dyspnea Resp Denies chest congestion, Denies cough, Denies dyspnea and Denies wheezing GI Denies abdominal pain, Denies bloating, Denies constipation, Denies dysphagia, Denies heartburn, Denies diarrhea, Denies nausea, Denies odynophagia and Denies vomiting Denies hematuria, Denies urinary frequency, Denies dysuria, Denies urinary incontinence and Denies urinary urgency Musc Denies back pain, Denies arthralgias, Denies joint swelling, Denies muscle weakness and Denies neck pain Skin/Breast Denies breast pain, Denies breast mass, Denies change in pigmentation, Denies lesions, Denies rash and Denies unusual bruising Neuro Denies dizziness, Denies headache(s) and Denies paresthesias Psych Denies anxiety and Denies depression Endo Denies fatigue and Denies palpitations Jose/Lymph Denies easy bruising Aller/Immun Denies itchy eyes and Denies wheezing Physical exam (Primary Care) Vital Signs: Last Vital Signs Temp 97.8 F 10/11/24 16:47 Pulse 66 10/11/24 16:47 BP 116/60 10/11/24 16:47 Pulse Ox 99 10/11/24 16:47 Oxygen Delivery Method Room Air 10/11/24 16:47 BMI result Body Mass Index 39.9 Tobacco/Smoking Status: Tobacco use Status Tobacco use date assessed 04/02/24 10/11/24 16:54 Patient Tobacco Use Status Never used Tobacco 10/11/24 16:54 e-Cigarette/Vaping Use Never Used 10/11/24 16:54 PHQ-9: PHQ-9 Score PHQ-9: Total score 5 10/11/24 17:08 Depression Screening Interpretation: Positive Depression Screening Follow-up: Follow-up Visit Requested Thrive Assessment: Date of Thrive Assessment Date Thrive assessed 10/11/24 10/11/24 16:54 Currently or been in a relationship where the following occur: No concerns reported Const General: no acute distress, alert and awake Orientation/consciousness: patient oriented x3 HENMT Head: Yes normocephalic and Yes atraumatic Ears: external ears normal, TM's normal bilaterally and EAC's normal General nose exam: No nasal discharge present Face and sinus: Yes normal facial exam and Yes sinuses nontender Teeth and gingiva: dentition normal Throat: Yes posterior oropharynx normal and Yes tonsils normal (no TP congestion) Eyes Eyelids: Yes eyelids normal Conjunctivae: conjunctivae normal Pupils: Equal, round and reactive pupils present EOM: EOMs intact bilaterally Neck Neck: Yes no lymphadenopathy and Yes supple Thyroid: Thyroid normal Resp Auscultation: clear to auscultation bilaterally, no rales and no wheezes Cardio Rate: regular rate Rhythm: regular rhythm Heart sounds: no murmurs GI Palpation (GI): Soft to palpation, nontender and No hepatosplenomegaly present Auscultation: normal bowel sounds General: Yes no CVA tenderness Back/Spine/Pelvis Back: no CVA tenderness Thoracic/Lumbar Spine: thoracic and lumbar spine normal to inspection Skin Lesions: no lesions Rashes: no rashes Neuro General: patient oriented x3, moves all extremities, no focal motor deficits and CN's II-XI intact bilaterally Cranial nerves: Yes Equal, round and reactive pupils present Cognition (Neuro): normal cognition Gait exam (Neuro): Normal gait present Extrem General: Yes no clubbing, cyanosis or edema Coding Level of Care Code Est Pt Prev Care 18-39y(37632) Diagnoses Annual physical exam Z00.00 First trimester Z34.91 Migraine with aura and without status migrainosus, not intractable G43.109 Migraine type: migraine (< 15 days per month) with aura Status migrainosus presence: without status migrainosus Intractability: not intractable 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 Vitamin D deficiency E55.9 Anxiety F41.9 Episode of recurrent major depressive disorder, unspecified depression episode severity F33.9 Depression Type: major depressive disorder Major depression recurrence: recurrent Active/Remission status: currently active Major depression episode severity: unspecified Obesity (BMI 30-39.9) E66.9 Additional Codes JESSA-7 Assessment Billing - JESSA-7 Assessment Tool: JESSA-7 Assessment 22353 ([id number]) PHQ-9 - 18717 - PHQ-9 Billing: Yes ([id number]) Assessment & Plan Assessment & Plan (1) Annual physical exam: Code(s): Z00.00 - Encounter for general adult medical examination without abnormal findings Category: Medical Plan: Check labs to complete her annual physical today (2) First trimester : Code(s): Z34.91 - Encounter for supervision of normal , unspecified, first trimester Category: Medical Plan: Patient is currently in her 3rd month of LMP: 07/19/2024 EDC: 04/19/2024 Continue vitamins daily Follow up with OB as scheduled for her visits (3) Migraine: Code(s): G43.909 - Migraine, unspecified, not intractable, without status migrainosus Category: Medical Qualifiers: Migraine type: migraine (< 15 days per month) with aura Status migrainosus presence: without status migrainosus Intractability: not intractable Qualified Code(s): G43.109 - Migraine with aura, not intractable, without status migrainosus Plan: Reinforced avoidance of any potential migraine triggers as much as possible Patient was taking Topiramate 25 mg Q HS for headache prophylaxis but has been instructed to STOP taking this by her analytical data miner when she was found to be a couple of months ago Continue Rizatripta n5 to 10 mg PRN for headaches Follow up with neurology as scheduled (4) 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 Code(s): H05.20 - Unspecified exophthalmos Category: Medical Plan: This was seen incidentally on her head CT done in October 2023 and confirmed with orbital CT done in March 2024 Cause of this is unclear, as patient is not known to have any thyroid disorders that was confirmed with normallabs when this was checked Follow up with ophthalmology as scheduled (5) Vitamin D deficiency: Code(s): E55.9 - Vitamin D deficiency, unspecified Category: Medical Plan: Continue Vitamin D3 2000 units QD Will recheck her Vitamin D level for follow up (6) Anxiety: Code(s): F41.9 - Anxiety disorder, unspecified Category: Medical Plan: Follow up with therapist/counselor as scheduled (7) Depression: Code(s): F32.A - Depression, unspecified Category: Medical Qualifiers: Depression Type: major depressive disorder Major depression recurrence: recurrent Active/Remission status: currently active Major depression episode severity: unspecified Qualified Code(s): F33.9 - Major depressive disorder, recurrent, unspecified Plan: Follow up with therapist/psychiatrist as scheduled (8) Obesity (BMI 30-39.9): Code(s): E66.9 - Obesity, unspecified Category: Medical Plan: Reinforced diet/exercise as tolerated/lose weight Plan To return in 1 year for her next annual physical examination Orders: Orders Complete Blood Count Auto Diff 10/11/24 D64.9 - Anemia, unspecified, Z00.00 - Encounter for general adult medical examination without abnormal findings TSH reflex Free T4 10/11/24 E78.00 - Pure hypercholesterolemia, unspecified, Z00.00 - Encounter for general adult medical examination without abnormal findings Vitamin D 25-OH Total 10/11/24 E55.9 - Vitamin D deficiency, unspecified, Z00.00 - Encounter for general adult medical examination without abnormal findings Vitamin B12 and Folate 10/11/24 E53.8 - Deficiency of other specified B group vitamins, Z00.00 - Encounter for general adult medical examination without abnormal findings Comprehensive [place]. Panel Fast 10/11/24 E78.00 - Pure hypercholesterolemia, unspecified, Z00.00 - Encounter for general adult medical examination without abnormal findings Lipid Panel 10/11/24 E78.00 - Pure hypercholesterolemia, unspecified, Z00.00 - Encounter for general adult medical examination without abnormal findings Hemoglobin A1c 10/11/24 Z00.00 - Encounter for general adult medical examination without abnormal findings UA CC w/rflx Micro + Cult 10/11/24 R30.0 - Dysuria, Z00.00 - Encounter for general adult medical examination without abnormal findings
[2024-10-11 16:47] VITALS: BP 116/60; PULSE 66; TEMP 36.6; O2SAT 99; BMI 39.9
== END 2024-10-11 17:19 | disposition home or self-care (01) ==
LOC: HO.HMCH 16:35
PROVIDERS: PCP Internal Medicine; Visit Provider Internal Medicine
DX: Z00.00 Encounter for general adult medical examination without abnormal findings (principal); G43.109 Migraine with aura, not intractable, without status migrainosus; E66.9 Obesity, unspecified; Z68.39 Body mass index [BMI] 39.0-39.9, adult; H05.20 Unspecified exophthalmos; E55.9 Vitamin D deficiency, unspecified; Z34.91 Encounter for supervision of normal pregnancy, unspecified, first trimester; F41.9 Anxiety disorder, unspecified; F33.9 Major depressive disorder, recurrent, unspecified

== ENCOUNTER → 2024-10-11 16:34 | Outpatient (BNVA) | payer OTHER, SELFPAY | PROVIDERS: PCP Internal Medicine; Visit Provider Internal Medicine | DX: Z00.00 Encounter for general adult medical examination without abnormal findings (principal); O99.211 Obesity complicating pregnancy, first trimester; O99.341 Other mental disorders complicating pregnancy, first trimester; O26.891 Other specified pregnancy related conditions, first trimester; G43.109 Migraine with aura, not intractable, without status migrainosus; H05.20 Unspecified exophthalmos; E55.9 Vitamin D deficiency, unspecified; F41.9 Anxiety disorder, unspecified; F33.9 Major depressive disorder, recurrent, unspecified; R30.0 Dysuria; Z68.39 Body mass index [BMI] 39.0-39.9, adult | CPT/HCPCS: 96127; 99395 ==

== ENCOUNTER 2024-10-13 09:25 | Outpatient (REF) | payer OTHER, SELFPAY ==
[2024-10-13 10:11] LABS: MANUAL DIFF FLAG NO
[2024-10-13 10:27] LABS: Hematocrit 37.4 % (37.0-47.0); Hemoglobin 12.6 g/dl (12.0-16.0); Imm Gran Abs Auto 0.03 X10*3/uL (0.00-0.03); Imm Gran Pct Auto 0.6 % (0.0-0.4); Lymphocytes Absolute Auto 1.7 X10*3/uL (1.2-4.9); Mean Corpuscular HGB Conc 33.7 g/dl (31.0-35.0); Mean Corpuscular Hemoglobin 25.8 pg (27.0-33.0); Mean Corpuscular Volume 76.6 fL (80.0-98.0); NRBC Abs Auto 0.000 X10*3/uL (0.0-0.012); NRBC Pct Auto 0.0 /100WBC (0.0-0.2); Platelet Count 218 X10*3/uL (160-400); Red Blood Count 4.88 X10*6/uL (4.20-5.50); White Blood Count 5.2 X10*3/uL (4.8-10.8)
[2024-10-13 10:45] LABS: Appearance Urine Clear; Glucose Urine UA Negative (Negative); PH 6.5 (5.0-9.0); Specific Gravity - Urine 1.010 (1.005-1.025); UMIC TRIGGER UACC YES
[2024-10-13 10:51] LABS: UACC Culture Trigger YES
[2024-10-13 11:08] LABS: Alanine Aminotransferase 17 U/L (0-31); Albumin Level 3.8 g/dL (3.5-5.0); Alkaline Phosphatase 65 U/L (39-117); Anion Gap 11 (12-20); Aspartate Amino Transferase 19 U/L (5-31); Blood Urea Nitrogen 7 mg/dL (9-16); Calcium 10.0 mg/dL (8.4-10.2); Carbon Dioxide 20 mmol/L (22-29); Chloride 108 mmol/L (96-108); Cholesterol 192 mg/dL (<200); Estimated Glomerular Filt Rate > 60; HDL Cholesterol 72 mg/dL (>40); Potassium 3.6 mmol/L (3.3-5.1); Sodium 135 mmol/L (135-145); Total Protein 6.8 g/dL (6.5-8.0); Triglycerides 57 mg/dL (<150)
[2024-10-13 11:15] LABS: Free T4 (Free Thyroxine) 0.88 ng/dL (0.71-1.85); Thyroid Stimulating Hormone 0.79 uIU/mL (0.32-4.0)
[2024-10-13 11:23] LABS: Folate > 20.0 ng/mL (> or = 4.0); Vitamin B12 551 pg/mL (200-900)
[2024-10-13 13:00] LABS: Hemoglobin A1C 113.8496 umol/L; Total Hemoglobin (HGBA1C) 3279.6270 umol/L
[2024-10-18 14:39] LABS: Triiodothyronine T3 Reverse 16 ng/dL (8-25)
== END 2024-10-13 09:26 | disposition home or self-care (01) ==
LOC: HO.LAB 09:25
PROVIDERS: Advanced Practice Midwife; Nurse Practitioner Family; PCP Internal Medicine; Visit Provider Internal Medicine
DX: Z00.00 Encounter for general adult medical examination without abnormal findings (principal); E05.00 Thyrotoxicosis with diffuse goiter without thyrotoxic crisis or storm; E53.8 Deficiency of other specified B group vitamins; R10.2 Pelvic and perineal pain; H05.20 Unspecified exophthalmos; G89.29 Other chronic pain; E78.00 Pure hypercholesterolemia, unspecified; E55.9 Vitamin D deficiency, unspecified; E66.9 Obesity, unspecified; D64.9 Anemia, unspecified; R51.9 Headache, unspecified; F41.9 Anxiety disorder, unspecified
CPT/HCPCS: 36415; 80053; 80061; 81001; 82306; 82607; 82746; 83036; 84439; 84443; 84445; 84480; 84482; 84702; 85025; 85652; 86140; 86376; 87086; 87088; 87186

== ENCOUNTER 2025-01-18 12:47 | Outpatient (AMB) | payer OTHER, SELFPAY ==
[2025-01-18 13:02] VITALS: BP 110/60; PULSE 74; O2SAT 98
--- NOTE | 2025-01-18 13:02 | MHC.OFFVIS ---
Vital Signs 01/18/25 13:02 Height 5 ft BP 110/60 Blood Pressure Location Rt brachial Position Sitting Pulse 74 Pulse Source Pulse Oximeter Pulse Oximetry (%) 98 Oxygen Delivery Method Room Air Intake Visit Reasons: 6 mo follow up Intake Note: Patient presents 3 month follow up for headache's Train Announcer Required: No Train Announcer Services: Train Announcer Present Train Announcer Name: yessy kandice- via tele video, [place] Accompanied by: Self / Same As Patient Allergies No Known Allergies Allergy (Verified 01/18/25 13:02) HPI Comments Details: 38-year-old female presents for follow-up of migraine, proptosis. She is 25 weeks . She reports the was a surprise, was identified on 08/31/2024 after having an [facility] [employer]CEIVING CLERK eval for abd cramping. She denies any complications associated with this current . This is her 3rd , her youngest child is 3 years old. She reports in 2021 had delivery (in [facility]) due to large gestational weight of 5 kg. Otherwise denies history of complications during previous 2 pregnancies or periods. Her obstructive care is being managed by [facility]. She does plan to breastfeed after the delivery. After finding out she was , she stopped topiramate. She is currently taking a vitamin She states that her migraine attacks have subsided. She is now using an occasional Tylenol for breakthrough migraine attacks. 07/19/24, HPI: Patient has had follow-up eye exam w/ [facility]- impression includes bilateral keratoconjunctivitis sicca, meibomian gland dysfunction in all 4 lids, and bilateral proptosis. Patient then underwent CT orbits, which showed bilateral right greater than left proptosis, without clear etiology. PCP has ordered thyroid panel, however patient was unaware of order. Patient states she does have an ophthalmology follow-up appointment scheduled. Patient reports she is not having headaches has severely or frequently as before. She states she is taking topiramate 25 mg q.h.s. which is helpful. She believe she is using rizatriptan as needed, which helps some. 04/20/2024, initial HPI: Right-handed 38-yr-old female presents for new pt evaluation of headache disorder. Pt reports she has headache for at least 6 yrs, which started after she had a period of dizziness. The headaches have improved over time, but yesterday she had bilateral eye pain. No known preceding causes. Head CT in Oct 2023 showed proptosis, she had f/u eye exam and had a f/u head CT last week. Last TSH: 1.65 within normal limits. However, pt is unaware of this dx and is sure what the results of her recent eye exam were. PMH and ROS are notable for:? General: Ocular proptosis- patient is unaware when this started HEENT: Bilateral tinnitus Musculoskeletal disorders or injury: Back pain History of concussion/head injury: Denies Mood d/o: Endorsees stress, Respiratory d/o: Denies CV disease: Denies Clotting or hematology d/o: Denies Endocrine or metabolic d/o: Denies History of seizure: . 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 Headache questionnaire:? Age/time of onset: 6 years. Typical headache characteristics: Prodrome symptoms: unsure Aura: may see stars and have blurry vision during the headache Pain intensity: moderate-severe Location, quality, characteristics: One side of head and eye pain and then holocranial squeezing (like the bone marrow will squeeze out of her head) and heavy . Associated symptoms: sometimes red eyes, photophobia, phonophobia, osmophobia, allodynia, used to have nausea, spinning dizziness, lightheadedness, fatigue, cognitive difficulties, activity intolerance. Postdrome: few days Triggers: no known triggers Time of day: No specific time of day Duration and Frequency: She does not count it. It can last 2-3 days. How does headache impact your life? She had Current acute medication use/interventions: Tylenol 1 tab 1-3 x's a day, and Ibuprofen 1 tab. Sumatriptan 50mg which helps- though does cause an altered taste and a sensation of acid reflux. Excedrin- in the past. Current preventative medication use: none Non-pharmacological interventions: Rest [facility] Medical History Confirm cardiac activity, ultrasound Encounter for supervision of other normal , first trimester Vitamin D deficiency Obesity (BMI 30-39.9) Depression Anxiety Obesity, Class III, BMI 40-49.9 (morbid obesity) Painful urination Pelvic pain Irregular menses Headache Surgical History Hx of section Social History Household Members: Spouse and Children Housing: Apartment Housing Other:: skilled nursing Alcohol intake: never Patient Tobacco Use Status: Never used Tobacco e-Cigarette/Vaping Use: Never Used Second Hand Smoke Exposure: No service: No Current occupational status: unemployed Sexual orientation: Straight/Heterosexual Gender identity: Female Cognitive needs: No Hearing needs: No Vision needs: No Female Reproductive History Menstrual Age of Menarche: 14 Physical Exam Vital Signs: Last Vital Signs Pulse 74 01/18/25 13:02 BP 110/60 01/18/25 13:02 Pulse Ox 98 01/18/25 13:02 Oxygen Delivery Method Room Air 01/18/25 13:02 Const Orientation/consciousness: patient oriented x3 Resp Effort & Inspection: normal respiratory effort and able to speak in complete sentences Neuro Other: Right slightly greater than left proptosis Right eye rest slightly higher than left Slight right cheek prominence Not photophobic today General: patient oriented x3 Cognition (Neuro): normal cognition Gait exam (Neuro): Normal gait present Motor exam (neuro): 5/5 motor strength present throughout Psych Appearance: grossly normal Mental Status: mental status grossly normal Speech and movement: Normal speech and movement present Affect: normal affect Results Reviewed Results Reviewed: Assessment & Plan Assessment & Plan (1) Migraine: Code(s): G43.909 - Migraine, unspecified, not intractable, without status migrainosus Category: Medical Qualifiers: Intractability: not intractable Migraine type: migraine (< 15 days per month) with aura Status migrainosus presence: without status migrainosus Qualified Code(s): G43.109 - Migraine with aura, not intractable, without status migrainosus (2) 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 Code(s): H05.20 - Unspecified exophthalmos Category: Medical Plan For bilateral right greater than left proptosis: Follow-up with ophthalmology as scheduled Follow-up with PCP for ongoing thyroid management Interval labs, round unremarkable For overall headache management: Optimize good self-care, including but not limited to maintaining a healthy diet, adequate fluid intake, adequate sleep, and engaging in regular physical activity. Track headaches, especially after any treatment regimen changes. [employer] is one of many headache tracking apps. Discussed with the patient that it is common for migraine headache to subside during . Reviewed medications that have evidence to support safety for use during , she will review the following recommendations with her OB, and let us know if she needs any refills. We also reviewed red flag signs to seek medical urgent attention for, including but not limited to: headache associated with swelling, high blood pressure, and/or changes in vision. For acute headache treatment: She may use rizatriptan sparingly all : Rizatriptan 10mg tab, 1/2 - 1 tab (5-10mg) at onset of headache, may repeat in 2 hours. Max of 2 tabs (200mg) per 24 hours. May adjunct with Tylenol 650-1000 mg every 4-6 hours as needed May take metoclopramide 10 mg every 6 hours as needed Hold NSAIDs while Previous acute migraine medication trials: Sumatriptan- not tolerated. Acute migraine medication contraindications: None at this time For headache prevention medication: Continue to hold Topiramate 25 mg daily at bedtime order while Previous migraine prevention medication trials: Sumatriptan 50mg helped- though does cause an altered taste and a sensation of acid reflux. Excedrin- in the past. Migraine prevention medication contraindications: None at this time Will follow-up upon review of above and patient to follow-up in clinic in 6 months or sooner prn. Coding Level of Care Code Est Pt Level 4 (71514) Diagnoses Migraine with aura and without status migrainosus, not intractable G43.109 Intractability: not intractable Migraine type: migraine (< 15 days per month) with aura Status migrainosus presence: without status migrainosus 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
== END 2025-01-18 13:40 | disposition home or self-care (01) ==
LOC: HO.HSMS 12:48
PROVIDERS: PCP Internal Medicine; Visit Provider Nurse Practitioner Family
DX: G43.109 Migraine with aura, not intractable, without status migrainosus (principal); H05.20 Unspecified exophthalmos
CPT/HCPCS: 99214

== ENCOUNTER → 2025-01-18 12:47 | Outpatient (BNVA) | payer OTHER, SELFPAY | PROVIDERS: PCP Internal Medicine; Visit Provider Nurse Practitioner Family | DX: O99.352 Diseases of the nervous system complicating pregnancy, second trimester (principal); G43.109 Migraine with aura, not intractable, without status migrainosus; H05.20 Unspecified exophthalmos; Z3A.25 25 weeks gestation of pregnancy | CPT/HCPCS: 99212 ==